=== PATIENT | male | born 1960 | race American Indian/Alaskan Native ===

== ENCOUNTER 2017-09-16 11:33 | Inpatient (IN) | payer MEDICARE, MEDICAID ==
[2017-09-16 12:22] LABS: BASO # 0.1 K/uL (0.0-0.2); BASO % 0.5 % (0.0-2.0); EOS % 0.4 % (0.0-4.0); HEMOGLOBIN 12.3 g/dL (12.0-18.0); LYMPH # 1.4 K/uL (1.0-4.3); LYMPH % 12.4 % (20.0-40.0); MEAN CORPUSCULAR HEMOGLOBIN 29.6 pg (27.0-31.0); MEAN CORPUSCULAR HGB CONC 33.3 g/dL (33.0-37.0); MEAN PLATELET VOLUME 8.3 fL (7.2-11.7); MONO # 1.5 K/uL (0.0-0.8); MONO % 12.9 % (0.0-10.0); NEUT # 8.3 K/uL (1.8-7.0); NEUT % 73.8 % (50.0-75.0); RBC 4.15 Mil/uL (4.40-5.90); RED CELL DISTRIBUTION WIDTH 13.8 % (11.5-14.5)
[2017-09-16 12:25] LABS: MEAN CELL VOLUME 88.9 fL (80.0-94.0); WHITE BLOOD COUNT 11.3 K/uL (4.8-10.8)
[2017-09-16 12:30] LABS: INR 1.4; PROTHROMBIN TIME 14.8 SECONDS (9.7-12.2)
--- NOTE | 2017-09-16 13:05 | CT ---
Date of service: 09/16/2017 PROCEDURE: CT HEAD WITHOUT CONTRAST. HISTORY: leg weakness, ams COMPARISON: None available. TECHNIQUE: Axial computed tomography images were obtained through the head/brain without intravenous contrast. Radiation dose: Total exam DLP = 1353.70 mGy-cm. This CT exam was performed using one or more of the following dose reduction techniques: Automated exposure control, adjustment of the mA and/or kV according to patient size, and/or use of iterative reconstruction technique. FINDINGS: Motion artifact exam. HEMORRHAGE: No intracranial hemorrhage. BRAIN: There is small lucency identified in the original artifact series at the inferior left external capsule and also in the subcortex of the bilateral frontal and left parietal lobes minimally. These likely reflect chronic microangiopathy but are nonspecific. A small infarct of indeterminate age is difficult to exclude at the inferior left external capsule. There is no cortical edema or mass effect identified throughout. Sulci and cisterns appear normal in overall volume with the posterior fossa contents unremarkable grossly. VENTRICLES: Unremarkable. No hydrocephalus. CALVARIUM: Unremarkable. PARANASAL SINUSES: Unremarkable as visualized. No significant inflammatory changes. MASTOID AIR CELLS: Unremarkable as visualized. No inflammatory changes. OTHER FINDINGS: None. IMPRESSION: No intracranial hemorrhage, mass effect or cortical edema is identified. 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 Lucency at the inferior left external capsule may reflect the same though small infarct of indeterminate age is difficult to exclude here. Follow-up CT or MRI is recommended.
--- NOTE | 2017-09-16 13:37 | C.PDOC ---
History Of Present Illness 56-year-old male sent to the ER from a skilled nursing for evaluation of left lower extremity weakness for 3 days. Patient has apparently been walking more slowly since Tuesday. He is complaining of left leg weakness. He also admits to mild headache. Otherwise he denies any visual changes, slurred speech, sensory changes, facial droop, chest pain, SOB, cough, or fever. Patient is a somewhat poor historian, not accompanied by any field case manager or family. Time Seen by Provider: 09/16/17 11:37 Chief Complaint (Nursing): Altered Mental Status History Per: Patient History/Exam Limitations: None Onset/Duration Of Symptoms: Days (x3) Current Symptoms Are (Timing): Still Present Past Medical History Reviewed: Historical Data, Nursing Documentation, Vital Signs Vital Signs: Last Vital Signs Temp 98.8 F 09/20/17 07:40 Pulse 86 09/20/17 13:35 Resp 20 09/20/17 07:40 BP 103/66 09/20/17 07:40 Pulse Ox 100 09/20/17 15:38 - Medical History PMH: Anxiety, Depression, Hepatitis, HTN, Schizophrenia - [facility] Procedures CLOSED ENDOSCOPIC BIOPSY OF LARGE INTESTINE (07/11/14) ESOPHAGOGASTRODUODENOSCOPY [EGD] W/CLOSED BIOPSY (11/01/12) LARYGNOSCOPY AND OTH TRACHEOSCOPY (11/01/12) VACCINATION NEC (11/01/12) Family History: States: No Known Family Hx - Social History Hx Tobacco Use: Yes Hx Alcohol Use: No Hx Substance Use: No Review Of Systems Except As Marked, All Systems Reviewed And Found Negative. Constitutional: Negative for: Fever Eyes: Negative for: Vision Change Cardiovascular: Negative for: Chest Pain Respiratory: Negative for: Cough, Shortness of Breath Musculoskeletal: Negative for: Leg Pain Neurological: Positive for: Weakness (left leg weakness), Headache. Negative for: Numbness, Incoordination, Change in Speech, Confusion, Dizziness, Other ( facial droop) Physical Exam - Physical Exam Appears: Non-toxic, No Acute Distress Skin: Normal Color, Warm, Dry Head: Atraumatic, Normacephalic Eye(s): bilateral: Normal Inspection (with no nystagmus), PERRL, EOMI Oral Mucosa: Moist Gastrointestinal/Abdominal: Soft, No Tenderness, No Distention Back: Normal Inspection, No Vertebral Tenderness Extremity: Bilateral: Atraumatic, No Pedal Edema, Normal Color And Temperature, Normal ROM (with no focal deficits elicited on exam) Pulses: Left Dorsalis Pedis: Normal, Right Dorsalis Pedis: Normal Neurological/Psych: Normal Speech, Normal Cranial Nerves, Cerebellar Signs ( negative), Normal Motor, Normal Sensation, Other (Alert, Awake, Oriented, with bizarre affect) Other Neurological Findings: No Facial Palsy Extremity: Right: No Drift, Left: No Drift, Upper: No Drift, Lower: No Drift ED Course And Treatment - Laboratory Results Result Diagrams: 09/20/17 06:51 09/20/17 06:51 ECG: Interpreted By Me, Viewed By Me ECG Rhythm: Sinus Rhythm ECG Interpretation: No Acute Changes Interpretation Of ECG: NSR at 88 bpm, normal axis, no acute ST/T wave changes Rate From EC O2 Sat by Pulse Oximetry: 100 (RA) Pulse Ox Interpretation: Normal - CT Scan/US CT Head w/o contrast Other Rad Studies (CT/US): Read By Radiologist, Radiology Report Reviewed CT/US Interpretation: Accession No. : [id number]. Patient Name / ID : NEGRO ULLOA / [id number]. Exam Date : 09/16/2017 12:45:02 ( Approved ). Study Comment : Sex / Age : M / 56Y. Creator : Malorie Herzog. Dictator : Jorge Medina MD. Clamper : Pipe Machine Operator : Jorge Medina MD. Approver2 : Report Date : 09/16/2017 12:51:27. My Comment : . Date of service: 09/16/2017. PROCEDURE: CT HEAD WITHOUT CONTRAST. HISTORY: leg weakness, ams. COMPARISON: None available. TECHNIQUE: Axial computed tomography images were obtained through the head/brain without intravenous contrast. Radiation dose: Total exam DLP = 1353.70 mGy-cm. This CT exam was performed using one or more of the following dose reduction techniques: Automated exposure control, adjustment of the mA and/or kV according to patient size, and/or use of iterative reconstruction technique. FINDINGS: Motion artifact exam. HEMORRHAGE: No intracranial hemorrhage. BRAIN: There is small lucency identified in the original artifact series at the inferior left external capsule and also in the subcortex of the bilateral frontal and left parietal lobes minimally. These likely reflect chronic microangiopathy but are nonspecific. A small infarct of indeterminate age is difficult to exclude at the inferior left external capsule. There is no cortical edema or mass effect identified throughout. Sulci and cisterns appear normal in overall volume with the posterior fossa contents unremarkable grossly. VENTRICLES: Unremarkable. No hydrocephalus. CALVARIUM: Unremarkable. PARANASAL SINUSES: Unremarkable as visualized. No significant inflammatory changes. MASTOID AIR CELLS: Unremarkable as visualized. No inflammatory changes. OTHER FINDINGS: None. IMPRESSION: No intracranial hemorrhage, mass effect or cortical edema is identified. 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 Lucency at the inferior left external capsule may reflect the same though small infarct of indeterminate age is difficult to exclude here. Follow-up CT or MRI is recommended. Progress Note: Blood work, UA, UDS, EKG, CT head ordered and reviewed. ASA PO given after CT head neg for acute bleed. 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 NIHSS Stroke Scale - Date/Time Evaluation Performed Date Performed: 09/16/17 Time Performed: 11:40 When Was NIHSS Performed: Baseline - How Severe is the Stoke Level of Consciousness: 0=Alert LOC to Questions: 0=Both comments correct LOC to commands: 0=Obeys both correctly Best Gaze: 0=Normal Visual: 0=No visual loss Facial: 0=Normal Motor Arm - Left: 0=No drift Motor Arm - Right: 0=No drift Motor Leg - Left: 0=No drift Motor Leg - Right: 0=No drift Limb Ataxia: 0=Absent Sensory: 0=Normal Best Language: 0=No aphasia Dysarthia: 0=Normal articulation Extinction & Inattention (Neglect): 0=Normal, no object Score: 0 Severity Of Stroke: 0= No Stroke rTPA Inclusion/Exclusion - Refusal of Treatment Patient Refused Treatment: No - Inclusion Criteria for Altepase Patient is 18 years or Older: Yes Clinical DX Ischemic Stroke Cause Neurological Deficit: No Time of Onset Established Less Than 270 Mins Before TX Begin: No Risk/Benefit Discussed With Patient/Family Member Present: No Disposition - Disposition Disposition: HOSPITALIZED Disposition Time: 14:19 Condition: STABLE - Clinical Impression Clinical Impression: Ambulatory dysfunction, Left leg weakness, TIA (transient ischemic attack) - Scribe Statement The provider has reviewed the documentation as recorded by the Scribe (Lilly Whitley) Provider Attestation: All medical record entries made by the Scribe were at my direction and personally dictated by me. I have reviewed the chart and agree that the record accurately reflects my personal performance of the history, physical exam, medical decision making, and the department course for this patient. I have also personally directed, reviewed, and agree with the discharge instructions and disposition.
[2017-09-16 13:41] LABS: URINE BILIRUBIN NEGATIVE (NEGATIVE); URINE BLOOD 1+ (NEGATIVE); URINE CLARITY Clear (Clear); URINE COLOR Yellow (YELLOW); URINE GLUCOSE (UA) NORMAL (Normal); URINE LEUKOCYTE ESTERASE NEG Leu/uL (Negative); URINE PROTEIN NEGATIVE (NEGATIVE)
[2017-09-16 14:08] LABS: BARBITURATES, UR NEGATIVE (NEGATIVE); BENZODIAZEPINES, UR NEGATIVE (NEGATIVE); OPIATES, UR NEGATIVE (NEGATIVE); PHENCYCLIDINE, UR NEGATIVE (NEGATIVE)
[2017-09-16 14:31] LABS: ALB/GLOB RATIO 1.3 (1.0-2.1); ALBUMIN 3.8 g/dL (3.5-5.0); ALT/SGPT 23 U/L (21-72); AST/SGOT 14 U/L (17-59); BLOOD UREA NITROGEN 10 mg/dL (9-20); CALCIUM 8.6 mg/dl (8.6-10.4); GFR AFRICAN-AMERICAN > 60; GFR NON-AFRICAN AMERICAN > 60
[2017-09-16 14:51] LABS: CK-MB < 0.22 ng/mL (0.0-3.38)
--- NOTE | 2017-09-16 20:58 | CP.PCM.HP ---
Past Patient History - Past Medical History & Family History Past Medical History?: Yes - Past Social History Smoking Status: Light Smoker < 10 Cigarettes Daily - CARDIAC Hx Hypertension: Yes - PULMONARY Hx Respiratory Disorders: No - NEUROLOGICAL Hx Neurological Disorder: No - HEENT Hx HEENT Problems: No - RENAL Hx Chronic Kidney Disease: No - ENDOCRINE/METABOLIC Hx Endocrine Disorders: No - HEMATOLOGICAL/ONCOLOGICAL Hx Blood Disorders: No - INTEGUMENTARY Hx Dermatological Problems: No - MUSCULOSKELETAL/RHEUMATOLOGICAL Hx Musculoskeletal Disorders: No - GASTROINTESTINAL Hx Gastrointestinal Disorders: No - GENITOURINARY/GYNECOLOGICAL Hx Genitourinary Disorders: No - PSYCHIATRIC Hx Anxiety: Yes Hx Depression: Yes Hx Schizophrenia: Yes Hx Substance Use: No - SURGICAL HISTORY Hx Surgeries: Yes - ANESTHESIA Hx Anesthesia: Yes Hx Anesthesia Reactions: No Hx Malignant Hyperthermia: No Meds Allergies/Adverse Reactions: Allergies Allergy/AdvReac Type Severity Reaction Status Date / Time No Known Allergies Allergy Verified 11/02/12 01:25 Physical Exam - Constitutional Appears: Well - Head Exam Head Exam: ATRAUMATIC, NORMAL INSPECTION, NORMOCEPHALIC - Eye Exam Eye Exam: EOMI, Normal appearance, PERRL Pupil Exam: NORMAL ACCOMODATION, PERRL - ENT Exam ENT Exam: Mucous Membranes Moist, Normal Exam - Neck Exam Neck exam: Positive for: Normal Inspection - Respiratory Exam Respiratory Exam: Decreased Breath Sounds - Cardiovascular Exam Cardiovascular Exam: REGULAR RHYTHM, +S1, +S2 - GI/Abdominal Exam GI & Abdominal Exam: Diminished Bowel Sounds, Soft - Rectal Exam Rectal Exam: Deferred Results - Vital Signs Recent Vital Signs: Last Vital Signs Temp 98.6 F 09/16/17 17:30 Pulse 90 09/16/17 20:31 Resp 20 09/16/17 17:30 BP 115/72 09/16/17 17:30 Pulse Ox 100 09/16/17 17:30 - Labs Result Diagrams: 09/16/17 12:18 09/16/17 14:15 Labs: Laboratory Results - last 24 hr 09/16/17 09/16/17 09/16/17 11:53 12:18 12:18 WBC 11.3 H D RBC 4.15 L Hgb 12.3 Hct 36.9 MCV 88.9 D MCH 29.6 MCHC 33.3 RDW 13.8 Plt Count 228 MPV 8.3 Neut % (Auto) 73.8 Lymph % (Auto) 12.4 L [place] % (Auto) 12.9 H Eos % (Auto) 0.4 Baso % (Auto) 0.5 Neut # (Auto) 8.3 H Lymph # (Auto) 1.4 [place] # (Auto) 1.5 H Eos # (Auto) 0.0 Baso # (Auto) 0.1 PT 14.8 H INR 1.4 APTT 37 H Sodium Potassium Chloride Carbon Dioxide Anion Gap BUN Creatinine Est GFR ( Amer) Est GFR (Non-Af Amer) POC Glucose (mg/dL) 111 H Random Glucose Calcium Total Bilirubin AST ALT Alkaline Phosphatase CK-MB (Mass) Troponin I Total Protein Albumin Globulin Albumin/Globulin Ratio Urine Color Urine Clarity Urine pH Ur Specific [place] Urine Protein Urine Glucose (UA) Urine Ketones Urine Blood Urine Nitrate Urine Bilirubin Urine Urobilinogen Ur Leukocyte Esterase Urine WBC (Auto) Urine RBC (Auto) Urine Opiates Screen Urine Methadone Screen Ur Barbiturates Screen Ur Phencyclidine Scrn Ur Amphetamines Screen U Benzodiazepines Scrn U Oth Cocaine Metabols U Cannabinoids Screen 09/16/17 09/16/17 09/16/17 13:26 13:26 14:15 WBC RBC Hgb Hct MCV MCH MCHC RDW Plt Count MPV Neut % (Auto) Lymph % (Auto) [place] % (Auto) Eos % (Auto) Baso % (Auto) Neut # (Auto) Lymph # (Auto) [place] # (Auto) Eos # (Auto) Baso # (Auto) PT INR APTT Sodium 139 Potassium 4.3 Chloride 102 Carbon Dioxide 25 Anion Gap 16 BUN 10 Creatinine 0.8 Est GFR ( Amer) > 60 Est GFR (Non-Af Amer) > 60 POC Glucose (mg/dL) Random Glucose 100 Calcium 8.6 Total Bilirubin 0.7 AST 14 L ALT 23 Alkaline Phosphatase 97 CK-MB (Mass) < 0.22 Troponin I < 0.0120 Total Protein 6.7 Albumin 3.8 Globulin 2.9 Albumin/Globulin Ratio 1.3 Urine Color Yellow Urine Clarity Clear Urine pH 5.0 Ur Specific [place] 1.016 Urine Protein Negative Urine Glucose (UA) Normal Urine Ketones Negative Urine Blood 1+ H Urine Nitrate Negative Urine Bilirubin Negative Urine Urobilinogen 2.0 Ur Leukocyte Esterase Neg Urine WBC (Auto) < 1 Urine RBC (Auto) 11 H Urine Opiates Screen Negative Urine Methadone Screen Negative Ur Barbiturates Screen Negative Ur Phencyclidine Scrn Negative Ur Amphetamines Screen Negative U Benzodiazepines Scrn Negative U Oth Cocaine Metabols Negative U Cannabinoids Screen Negative
[2017-09-16] MEDS ORDERED: CLOZAPINE 100 MG PO SCH (22:00)
[2017-09-17] MEDS: Multiple Vitamins Tab PO SCH (10:11)
[2017-09-17] MEDS: Enoxaparin 40 mg Syringe SC SCH (10:11)
[2017-09-17] MEDS: Pantoprazole 40 mg EC Tab PO SCH (10:12)
--- NOTE | 2017-09-17 10:36 | CT ---
Date of service: 09/17/2017 PROCEDURE: CT Lumbar Spine without contrast HISTORY: weakness COMPARISON: None. TECHNIQUE: Axial computed tomography images were obtained of the lumbar spine without the use of intravenous contrast. Coronal and sagittal reformatted images were created and reviewed. Radiation dose: Total exam DLP = 379.33 mGy-cm. This CT exam was performed using one or more of the following dose reduction techniques: Automated exposure control, adjustment of the mA and/or kV according to patient size, and/or use of iterative reconstruction technique. FINDINGS: VERTEBRAE: Unremarkable. No fracture. Normal alignmentStraightened lumbar curvature without fracture or spondylolisthesis identified. Normal vertebral body and disc interspace heights identified. No destructive bony lesion appreciated. Prevertebral paraspinal soft tissues appear diffusely unremarkable. Instill note is made of prominent fecal loading throughout large-bowel as imaged. This excludes the rectal vault. DISCS/SPINAL CANAL/NEURAL FORAMINA: L1-2: Unremarkable. L2-3: Unremarkable. L3-4: Minimal disc bulging is encounter without central canal or neural foraminal stenosis. . L4-5: A mild generalized disc bulge is appreciated with limited facet joint degenerative changes encroaching the lateral recesses combined with this disc bulge but without causing generalized central canal stenosis. L5-S1: Unremarkable. PARASPINAL SOFT TISSUES: Unremarkable. OTHER FINDINGS: None. IMPRESSION: Limited disc bulging is seen at L3-4 and L4-5 without generalized central canal stenosis at either level although the lateral recesses are encroached L4-5 due to combined facet joint degenerative changes with disc bulging. No gross disc herniation. Straightened lumbar curvature. MRI is available for follow-up if clinically warranted. Incidental potential constipation.
--- NOTE | 2017-09-17 14:58 | CP.PCM.CON ---
History of Present Illness - History of Present Illness History of Present Illness: 56 yo male with h/o learning disability, a resident in a skilled nursing, HTN, presents for right sided abdominal pain. Patient is a poor historian. States has had a right sided abdominal pain at rest, described as achy, non-radiating and not associated with nausea, vomiting or diarrhea. Denies chest pain, dyspnea , palpitations or diaphoresis at rest or exertion. Review of Systems - Review of Systems Review of Systems: all others are negative except HPI Past Patient History - Past Medical History & Family History Past Medical History?: Yes - Past Social History Smoking Status: Light Smoker < 10 Cigarettes Daily - CARDIAC Hx Hypertension: Yes - PULMONARY Hx Respiratory Disorders: No - NEUROLOGICAL Hx Neurological Disorder: No - HEENT Hx HEENT Problems: No - RENAL Hx Chronic Kidney Disease: No - ENDOCRINE/METABOLIC Hx Endocrine Disorders: No - HEMATOLOGICAL/ONCOLOGICAL Hx Blood Disorders: No - INTEGUMENTARY Hx Dermatological Problems: No - MUSCULOSKELETAL/RHEUMATOLOGICAL Hx Musculoskeletal Disorders: No - GASTROINTESTINAL Hx Gastrointestinal Disorders: No - GENITOURINARY/GYNECOLOGICAL Hx Genitourinary Disorders: No - PSYCHIATRIC Hx Anxiety: Yes Hx Depression: Yes Hx Schizophrenia: Yes Hx Substance Use: No - SURGICAL HISTORY Hx Surgeries: Yes - ANESTHESIA Hx Anesthesia: Yes Hx Anesthesia Reactions: No Hx Malignant Hyperthermia: No Meds Allergies/Adverse Reactions: Allergies Allergy/AdvReac Type Severity Reaction Status Date / Time No Known Allergies Allergy Verified 11/02/12 01:25 - Medications Medications: Current Medications Amlodipine Besylate (Norvasc) 5 mg PO DAILY [facility] Last Admin: 09/17/17 10:12 Dose: 5 mg Aspirin (Aspirin) 325 mg PO DAILY [facility] Last Admin: 09/17/17 10:12 Dose: 325 mg Bisacodyl (Dulcolax) 5 mg PO BID PRN PRN Reason: Constipation Enoxaparin Sodium (Lovenox) 40 mg SC DAILY [facility] Last Admin: 09/17/17 10:11 Dose: 40 mg Folic Acid (Folic Acid) 1 mg PO DAILY [facility] Last Admin: 09/17/17 10:12 Dose: 1 mg Home Med (Clozapine [Clozapine Odt]) 100 mg PO BID [facility] Home Med (Linaclotide [Linzess]) 145 mcg PO DAILY [facility] Multivitamins (Hexavitamin) 1 tab PO DAILY [facility] Last Admin: 09/17/17 10:11 Dose: 1 tab Pantoprazole Sodium (Protonix Ec Tab) 40 mg PO DAILY [facility] Last Admin: 09/17/17 10:12 Dose: 40 mg Propranolol HCl (Inderal) 10 mg PO BID [facility] Last Admin: 09/17/17 10:12 Dose: 10 mg Rosuvastatin Calcium (Crestor) 10 mg PO HS [facility] Last Admin: 09/16/17 21:40 Dose: 10 mg Physical Exam - Constitutional Appears: No Acute Distress - Head Exam Head Exam: ATRAUMATIC, NORMOCEPHALIC - Eye Exam Eye Exam: EOMI Pupil Exam: PERRL - Neck Exam Neck exam: Positive for: Full Rom. Negative for: Lymphadenopathy - Respiratory Exam Respiratory Exam: Clear to Auscultation Bilateral, NORMAL BREATHING PATTERN - Cardiovascular Exam Cardiovascular Exam: REGULAR RHYTHM, RRR, +S1, +S2. absent: JVD, Systolic Murmur - GI/Abdominal Exam GI & Abdominal Exam: Soft, Tenderness - Extremities Exam Extremities exam: Negative for: calf tenderness - Back Exam Back exam: absent: CVA tenderness (L) - Neurological Exam Neurological exam: Alert, CN II-XII Intact - Psychiatric Exam Psychiatric exam: Normal Mood Results - Vital Signs Recent Vital Signs: Last Vital Signs Temp 98.7 F 09/17/17 08:00 Pulse 79 09/17/17 08:00 Resp 20 09/17/17 07:00 BP 123/79 09/17/17 07:00 Pulse Ox 100 09/17/17 07:00 - Labs Result Diagrams: 09/16/17 12:18 09/16/17 14:15 Assessment & Plan (1) Other chest pain Assessment and Plan: Atypical chest pain EKG, as reviewed by me, shows normal SR, no acute ST-T changes Possible GI etiology Suggest GI eval and abdominal imaging Status: Acute (2) Essential (primary) hypertension Assessment and Plan: Well controlled on current regimen Status: Acute
--- NOTE | 2017-09-17 15:36 | CP.PCM.PN ---
Subjective - Date & Time of Evaluation Date of Evaluation: 09/17/17 Time of Evaluation: 10:30 - Subjective Subjective: clinically same Objective - Vital Signs/Intake and Output Vital Signs (last 24 hours): Temp Pulse Resp BP Pulse Ox 98.7 F 79 20 123/79 100 09/17/17 08:00 09/17/17 08:00 09/17/17 07:00 09/17/17 07:00 09/17/17 07:00 - Medications Medications: Current Medications Amlodipine Besylate (Norvasc) 5 mg PO DAILY [facility] Last Admin: 09/17/17 10:12 Dose: 5 mg Aspirin (Aspirin) 325 mg PO DAILY [facility] Last Admin: 09/17/17 10:12 Dose: 325 mg Bisacodyl (Dulcolax) 5 mg PO BID PRN PRN Reason: Constipation Enoxaparin Sodium (Lovenox) 40 mg SC DAILY [facility] Last Admin: 09/17/17 10:11 Dose: 40 mg Folic Acid (Folic Acid) 1 mg PO DAILY [facility] Last Admin: 09/17/17 10:12 Dose: 1 mg Home Med (Clozapine [Clozapine Odt]) 100 mg PO BID [facility] Home Med (Linaclotide [Linzess]) 145 mcg PO DAILY [facility] Multivitamins (Hexavitamin) 1 tab PO DAILY [facility] Last Admin: 09/17/17 10:11 Dose: 1 tab Pantoprazole Sodium (Protonix Ec Tab) 40 mg PO DAILY [facility] Last Admin: 09/17/17 10:12 Dose: 40 mg Propranolol HCl (Inderal) 10 mg PO BID [facility] Last Admin: 09/17/17 10:12 Dose: 10 mg Rosuvastatin Calcium (Crestor) 10 mg PO [facility] Last Admin: 09/16/17 21:40 Dose: 10 mg - Labs Labs: 09/16/17 12:18 09/16/17 14:15 PT 14.8 SECONDS (9.7-12.2) H 09/16/17 12:18 INR 1.4 09/16/17 12:18 APTT 37 SECONDS (21-34) H 09/16/17 12:18 - Constitutional Appears: Well - Head Exam Head Exam: ATRAUMATIC, NORMAL INSPECTION, NORMOCEPHALIC - Eye Exam Eye Exam: EOMI, Normal appearance, PERRL Pupil Exam: NORMAL ACCOMODATION, PERRL - ENT Exam ENT Exam: Mucous Membranes Moist, Normal Exam - Neck Exam Neck Exam: Full ROM, Normal Inspection. absent: Lymphadenopathy - Respiratory Exam Respiratory Exam: Decreased Breath Sounds - Cardiovascular Exam Cardiovascular Exam: REGULAR RHYTHM, +S1, +S2 - GI/Abdominal Exam GI & Abdominal Exam: Soft, Diminished Bowel Sounds - Rectal Exam Rectal Exam: Deferred
--- NOTE | 2017-09-17 17:42 | RAD ---
Date of service: 09/17/2017 PROCEDURE: CHEST RADIOGRAPH, 1 VIEW HISTORY: COMPARISON: Chest radiograph 12/16/2010. FINDINGS: LUNGS: No active pulmonary disease appreciated bilaterally. Small granulomas suggested at the medial left apex. PLEURA: No pneumothorax or pleural fluid seen. CARDIOVASCULAR: Normal. OSSEOUS STRUCTURES: No significant abnormalities. VISUALIZED UPPER ABDOMEN: Normal. OTHER FINDINGS: None. IMPRESSION: No acute interval cardiopulmonary disease appreciated.
[2017-09-18 08:59] LABS: BASO # 0.1 K/uL (0.0-0.2); BASO % 0.8 % (0.0-2.0); EOS # 0.1 K/uL (0.0-0.7); EOS % 1.1 % (0.0-4.0); HEMOGLOBIN 12.1 g/dL (12.0-18.0); LYMPH # 1.5 K/uL (1.0-4.3); LYMPH % 15.6 % (20.0-40.0); MEAN CELL VOLUME 88.5 fL (80.0-94.0); MEAN CORPUSCULAR HEMOGLOBIN 29.6 pg (27.0-31.0); MEAN CORPUSCULAR HGB CONC 33.5 g/dL (33.0-37.0); MEAN PLATELET VOLUME 8.7 fL (7.2-11.7); MONO % 10.4 % (0.0-10.0); NEUT # 6.9 K/uL (1.8-7.0); NEUT % 72.1 % (50.0-75.0); NRBC % 0.1 % (0.0-2.0); RBC 4.07 Mil/uL (4.40-5.90); RED CELL DISTRIBUTION WIDTH 14.2 % (11.5-14.5); WHITE BLOOD COUNT 9.6 K/uL (4.8-10.8)
[2017-09-18 09:25] LABS: ALB/GLOB RATIO 1.2 (1.0-2.1); ALBUMIN 3.5 g/dL (3.5-5.0); ALT/SGPT 24 U/L (21-72); AST/SGOT 12 U/L (17-59); BLOOD UREA NITROGEN 14 mg/dL (9-20); CALCIUM 8.5 mg/dl (8.6-10.4); GFR AFRICAN-AMERICAN > 60; GFR NON-AFRICAN AMERICAN > 60
[2017-09-18] MEDS: Pantoprazole 40 mg EC Tab PO SCH (10:34)
[2017-09-18] MEDS: Multiple Vitamins Tab PO SCH (10:34)
[2017-09-18] MEDS: Enoxaparin 40 mg Syringe SC SCH (10:35)
[2017-09-18 12:56] LABS: HDL CHOLESTEROL 37 mg/dL (30-70)
[2017-09-18 13:07] LABS: LDL CHOLESTEROL 60 mg/dL (0-129)
--- NOTE | 2017-09-18 17:38 | CP.PCM.PN ---
Subjective - Date & Time of Evaluation Date of Evaluation: 09/18/17 Time of Evaluation: 09:45 - Subjective Subjective: clinically same Objective - Vital Signs/Intake and Output Vital Signs (last 24 hours): Temp Pulse Resp BP Pulse Ox 100 F H 87 20 108/73 100 09/18/17 16:03 09/18/17 16:03 09/18/17 16:03 09/18/17 16:03 09/18/17 16:03 Intake and Output: 09/18/17 09/18/17 06:59 18:59 Intake Total 960 Output Total 500 500 Balance 460 -500 - Medications Medications: Current Medications Amlodipine Besylate (Norvasc) 5 mg PO DAILY [facility] Last Admin: 09/18/17 10:34 Dose: 5 mg Aspirin (Aspirin) 325 mg PO DAILY [facility] Last Admin: 09/18/17 10:34 Dose: 325 mg Bisacodyl (Dulcolax) 5 mg PO BID PRN PRN Reason: Constipation Enoxaparin Sodium (Lovenox) 40 mg SC DAILY [facility] Last Admin: 09/18/17 10:35 Dose: 40 mg Folic Acid (Folic Acid) 1 mg PO DAILY [facility] Last Admin: 09/18/17 10:34 Dose: 1 mg Home Med (Clozapine [Clozapine Odt]) 100 mg PO BID [facility] Home Med (Linaclotide [Linzess]) 145 mcg PO DAILY [facility] Multivitamins (Hexavitamin) 1 tab PO DAILY [facility] Last Admin: 09/18/17 10:34 Dose: 1 tab Pantoprazole Sodium (Protonix Ec Tab) 40 mg PO DAILY [facility] Last Admin: 09/18/17 10:34 Dose: 40 mg Propranolol HCl (Inderal) 10 mg PO BID [facility] Last Admin: 09/18/17 10:35 Dose: 10 mg Rosuvastatin Calcium (Crestor) 10 mg PO HS [facility] Last Admin: 09/17/17 21:12 Dose: 10 mg - Labs Labs: 09/18/17 08:42 09/18/17 08:42 PT 14.8 SECONDS (9.7-12.2) H 09/16/17 12:18 INR 1.4 09/16/17 12:18 APTT 37 SECONDS (21-34) H 09/16/17 12:18 - Constitutional Appears: Well - Head Exam Head Exam: ATRAUMATIC, NORMAL INSPECTION, NORMOCEPHALIC - Eye Exam Eye Exam: EOMI, Normal appearance, PERRL Pupil Exam: NORMAL ACCOMODATION, PERRL - ENT Exam ENT Exam: Mucous Membranes Moist, Normal Exam - Neck Exam Neck Exam: Full ROM, Normal Inspection. absent: Lymphadenopathy - Respiratory Exam Respiratory Exam: Decreased Breath Sounds - Cardiovascular Exam Cardiovascular Exam: REGULAR RHYTHM, +S1, +S2 - GI/Abdominal Exam GI & Abdominal Exam: Soft, Diminished Bowel Sounds - Rectal Exam Rectal Exam: Deferred
[2017-09-18] MEDS: Bisacodyl 5mg EC Tab PO PRN (21:31)
[2017-09-19 06:59] LABS: BASO # 0.1 K/uL (0.0-0.2); BASO % 0.7 % (0.0-2.0); EOS # 0.2 K/uL (0.0-0.7); HEMOGLOBIN 12.5 g/dL (12.0-18.0); LYMPH # 1.3 K/uL (1.0-4.3); LYMPH % 13.2 % (20.0-40.0); MEAN CELL VOLUME 88.5 fL (80.0-94.0); MEAN CORPUSCULAR HEMOGLOBIN 29.9 pg (27.0-31.0); MEAN CORPUSCULAR HGB CONC 33.8 g/dL (33.0-37.0); MEAN PLATELET VOLUME 8.4 fL (7.2-11.7); MONO % 10.4 % (0.0-10.0); NEUT # 7.2 K/uL (1.8-7.0); NEUT % 73.7 % (50.0-75.0); NRBC % 0.1 % (0.0-2.0); RBC 4.18 Mil/uL (4.40-5.90); RED CELL DISTRIBUTION WIDTH 14.1 % (11.5-14.5); WHITE BLOOD COUNT 9.8 K/uL (4.8-10.8)
[2017-09-19 07:20] LABS: HDL CHOLESTEROL 35 mg/dL (30-70)
[2017-09-19 07:31] LABS: LDL CHOLESTEROL 56 mg/dL (0-129)
[2017-09-19 07:58] LABS: ALB/GLOB RATIO 1.2 (1.0-2.1); ALBUMIN 3.6 g/dL (3.5-5.0); ALT/SGPT 30 U/L (21-72); AST/SGOT 18 U/L (17-59); BLOOD UREA NITROGEN 18 mg/dL (9-20); CALCIUM 8.6 mg/dl (8.6-10.4); GFR AFRICAN-AMERICAN > 60; GFR NON-AFRICAN AMERICAN > 60
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
[2017-09-19] MEDS: Enoxaparin 40 mg Syringe SC SCH (10:10)
[2017-09-19] MEDS: Multiple Vitamins Tab PO SCH (10:11)
[2017-09-19] MEDS: Pantoprazole 40 mg EC Tab PO SCH (10:11)
--- NOTE | 2017-09-19 13:33 | MRI ---
Date of service: 09/19/2017 PROCEDURE: MRI BRAIN WITHOUT CONTRAST HISTORY: recurrent right sub cortical dysfunction COMPARISON: Noncontrast head CT from 09/16/2017 TECHNIQUE: Multiplanar, multisequence MR images of the brain were obtained without intravenous contrast enhancement. FINDINGS: HEMORRHAGE: None DWI: No evidence of an acute or early subacute infarction. BRAIN PARENCHYMA: There are minimal chronic microangiopathic changes. There is no mass, mass effect or abnormal extra-axial fluid collection. There is no territorial infarction. The midline sagittal structures are normal. VENTRICLES: There is mild age-related global parenchymal volume loss and proportionate enlargement of the ventricles and cortical sulci. CRANIUM: There is normal bone marrow signal pattern. ORBITS: Grossly unremarkable. PARANASAL SINUSES/MASTOIDS: There is a retention cyst/ polyp in the anterior superior right maxillary sinus and mild mucosal thickening in the ethmoid air cells. The remaining included paranasal sinuses are predominantly clear. The mastoid air cells are predominantly clear. VASCULAR SYSTEM: There are normal signal voids in the larger intracranial arteries. OTHER FINDINGS: None. IMPRESSION: 1. No acute intracranial abnormality. 2. Minimal chronic microangiopathic changes and mild age-related global parenchymal volume loss.
--- NOTE | 2017-09-19 13:57 | PN ---
DATE: 09/19/2017 NEUROLOGICAL PROBLEM: Right subcortical dysfunction manifesting with left-sided weakness. PHYSICAL EXAMINATION: VITAL SIGNS: Blood pressure 119/77, mean arterial pressure of 81, respiratory rate 18, temperature 98.8 with the pulse rate 84 and regular. GENERAL: The patient is arousable on calling his first name. He knows he is in the hospital. He denies any new complaints except some fever overnight. He claims that episodic left-sided weakness including arm and leg does not affect his speech and vision. No history of fall. No history of trauma. SIGNIFICANT PAST MEDICAL HISTORY: Depression, hepatitis, hypertension, schizophrenia, and chronic renal disease. NEUROLOGIC: Reflexes are decreased. Plantars are mute. Extraocular movement is same. No facial asymmetry noted. The patient was evaluated by Dr. Ash yesterday. The patient was recommended to have a workup for transient ischemic attack. ASSESSMENT AND PLAN: 1. I recommended him to have MRI of the brain to rule out any vascular versus structural cause that could explain his problem. 2. Electroencephalogram also to be done to rule out any seizure activities. In the meantime, the patient should be continuously taking the current medication for stroke prophylaxis with proper hydration. The patient will be followed closely with you. Flip Hameed MD
--- NOTE | 2017-09-19 16:29 | RAD ---
PROCEDURE: Radiographs of the pelvis and bilateral hips HISTORY: unable to walk COMPARISON: None. FINDINGS: BONES: Pelvis: Unremarkable. Right hip:Probable anterior acetabular over coverage. Bony protrusion along the anterosuperior aspect of the femoral head neck junction. Left hip:Probable anterior acetabular over coverage. Bony protrusion along the anterosuperior aspect of the femoral head neck junction. JOINTS: Right hip: Joint space narrowing. Left hip: Joint space narrowing. Sacroiliac Joints: Joint space narrowing. Pubic symphysis: Joint space narrowing. SOFT TISSUES: Normal. OTHER FINDINGS: None. IMPRESSION: No demonstrated fracture or dislocation. 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
--- NOTE | 2017-09-19 19:06 | CP.PCM.PN ---
Subjective - Date & Time of Evaluation Date of Evaluation: 09/19/17 Time of Evaluation: 09:45 - Subjective Subjective: clinically same Objective - Vital Signs/Intake and Output Vital Signs (last 24 hours): Temp Pulse Resp BP Pulse Ox 98.2 F 87 20 94/57 L 96 09/19/17 07:30 09/19/17 12:45 09/19/17 07:30 09/19/17 07:30 09/19/17 12:45 Intake and Output: 09/19/17 09/20/17 18:59 06:59 Intake Total 600 Balance 600 - Medications Medications: Current Medications Acetaminophen (Tylenol 325mg Tab) 650 mg PO Q8 PRN PRN Reason: Fever >100.4 F Last Admin: 09/18/17 21:31 Dose: 650 mg Amlodipine Besylate (Norvasc) [address] [facility] Last Admin: 09/19/17 10:11 Dose: 5 mg Aspirin (Aspirin) [address] [facility] Last Admin: 09/19/17 10:10 Dose: 325 mg Bisacodyl (Dulcolax) 5 mg PO BID PRN PRN Reason: Constipation Last Admin: 09/18/17 21:31 Dose: 5 mg Enoxaparin Sodium (Lovenox) [address] [facility] Last Admin: 09/19/17 10:10 Dose: 40 mg Folic Acid (Folic Acid) [address] [facility] Last Admin: 09/19/17 10:11 Dose: 1 mg Home Med (Clozapine [Clozapine Odt]) [address] [facility] Home Med (Linaclotide [Linzess]) [address] [facility] Ceftriaxone Sodium 1 gm/ (Sodium Chloride) 100 mls @ 100 mls/hr IVPB DAILY [facility] PRN Reason: Protocol Last Admin: 09/19/17 10:11 Dose: 100 mls/hr Multivitamins (Hexavitamin) [address] [facility] Last Admin: 09/19/17 10:11 Dose: 1 tab Pantoprazole Sodium (Protonix Ec Tab) [address] [facility] Last Admin: 09/19/17 10:11 Dose: 40 mg Propranolol HCl (Inderal) [address] [facility] Last Admin: 09/19/17 10:11 Dose: 10 mg Rosuvastatin Calcium (Crestor) [address] [facility] Last Admin: 09/18/17 21:31 Dose: 10 mg - Labs Labs: 09/19/17 06:39 09/19/17 06:39 PT 14.8 SECONDS (9.7-12.2) H 09/16/17 12:18 INR 1.4 09/16/17 12:18 APTT 37 SECONDS (21-34) H 09/16/17 12:18 - Constitutional Appears: Well - Head Exam Head Exam: ATRAUMATIC, NORMAL INSPECTION, NORMOCEPHALIC - Eye Exam Eye Exam: EOMI, Normal appearance, PERRL Pupil Exam: NORMAL ACCOMODATION, PERRL - ENT Exam ENT Exam: Mucous Membranes Moist, Normal Exam - Neck Exam Neck Exam: Full ROM, Normal Inspection. absent: Lymphadenopathy - Respiratory Exam Respiratory Exam: Decreased Breath Sounds - Cardiovascular Exam Cardiovascular Exam: REGULAR RHYTHM, +S1, +S2 - GI/Abdominal Exam GI & Abdominal Exam: Soft, Diminished Bowel Sounds - Rectal Exam Rectal Exam: Deferred
--- NOTE | 2017-09-19 19:23 | CP.PCM.PN ---
Subjective - Date & Time of Evaluation Date of Evaluation: 09/19/17 Time of Evaluation: 10:22 - Subjective Subjective: PGY2 Medicine Note for Dr. Maci Holley Patient seen and examined this morning at bedside. No acute events overnight. Patient states he is feeling well but still experiencing left leg weakness. He is tolerating his diet and his pain has been well controlled. Patient no complaints at this time. ROS is negative. Objective - Vital Signs/Intake and Output Vital Signs (last 24 hours): Temp Pulse Resp BP Pulse Ox 98.2 F 87 20 94/57 L 96 09/19/17 07:30 09/19/17 12:45 09/19/17 07:30 09/19/17 07:30 09/19/17 12:45 Intake and Output: 09/19/17 09/20/17 18:59 06:59 Intake Total 600 Balance 600 - Medications Medications: Current Medications Acetaminophen (Tylenol 325mg Tab) 650 mg PO Q8 PRN PRN Reason: Fever >100.4 F Last Admin: 09/18/17 21:31 Dose: 650 mg Amlodipine Besylate (Norvasc) 5 mg PO DAILY [facility] Last Admin: 09/19/17 10:11 Dose: 5 mg Aspirin (Aspirin) 325 mg PO DAILY [facility] Last Admin: 09/19/17 10:10 Dose: 325 mg Bisacodyl (Dulcolax) 5 mg PO BID PRN PRN Reason: Constipation Last Admin: 09/18/17 21:31 Dose: 5 mg Enoxaparin Sodium (Lovenox) 40 mg SC DAILY [facility] Last Admin: 09/19/17 10:10 Dose: 40 mg Folic Acid (Folic Acid) 1 mg PO DAILY [facility] Last Admin: 09/19/17 10:11 Dose: 1 mg Home Med (Clozapine [Clozapine Odt]) 100 mg PO BID [facility] Home Med (Linaclotide [Linzess]) 145 mcg PO DAILY [facility] Ceftriaxone Sodium 1 gm/ (Sodium Chloride) 100 mls @ 100 mls/hr IVPB DAILY [facility] PRN Reason: Protocol Last Admin: 09/19/17 10:11 Dose: 100 mls/hr Multivitamins (Hexavitamin) 1 tab PO DAILY [facility] Last Admin: 09/19/17 10:11 Dose: 1 tab Pantoprazole Sodium (Protonix Ec Tab) 40 mg PO DAILY [facility] Last Admin: 09/19/17 10:11 Dose: 40 mg Propranolol HCl (Inderal) 10 mg PO BID [facility] Last Admin: 09/19/17 10:11 Dose: 10 mg Rosuvastatin Calcium (Crestor) 10 mg PO HS [facility] Last Admin: 09/18/17 21:31 Dose: 10 mg - Labs Labs: 09/19/17 06:39 09/19/17 06:39 PT 14.8 SECONDS (9.7-12.2) H 09/16/17 12:18 INR 1.4 09/16/17 12:18 APTT 37 SECONDS (21-34) H 09/16/17 12:18 - Constitutional Appears: Unkempt, Older Than Stated Age - Head Exam Head Exam: NORMOCEPHALIC - Eye Exam Eye Exam: Normal appearance - ENT Exam Additional comments: poor dentition, missing many teeth - Neck Exam Neck Exam: absent: Lymphadenopathy - Respiratory Exam Respiratory Exam: Clear to Ausculation Bilateral, NORMAL BREATHING PATTERN. absent: Accessory Muscle Use, Rales, Rhonchi, Wheezes, Respiratory Distress - Cardiovascular Exam Cardiovascular Exam: REGULAR RHYTHM, +S1, +S2 - GI/Abdominal Exam GI & Abdominal Exam: Soft, Normal Bowel Sounds. absent: Distended, Firm, Guarding, Rigid, Tenderness - Extremities Exam Extremities Exam: Normal Inspection. absent: Calf Tenderness, Pedal Edema - Neurological Exam Neurological Exam: Alert, Awake, Oriented x3 Neuro motor strength exam: Left Upper Extremity: 5, Right Upper Extremity: 5, Left Lower Extremity: 4, Right Lower Extremity: 5 - Psychiatric Exam Psychiatric exam: Normal Affect, Normal Mood - Skin Skin Exam: Dry, Warm Assessment and Plan - Assessment and Plan (Free Text) Plan: Left Lower extremity weakness Neurology Consulted, Dr. Hameed - help appreciated * No neurology intervention at this time * Recommend PT - weakness and gait instability ID Consulted, Dr. Olguin - help appreciated Head CT (09/16): * No intracranial hemorrhage, mass effect or cortical edema is identified. 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 Lucency at the inferior left external capsule may reflect the same though small infarct of indeterminate age is difficult to exclude here. Follow-up CT or MRI is recommended Lumbar Spine CT (09/17): * Limited disc bulging is seen at L3-4 and L4-5 without generalized central canal stenosis at either level although the lateral recesses are encroached L4- 5 due to combined facet joint degenerative changes with disc bulging. No gross disc herniation. Straightened lumbar curvature. MRI is available for follow- up if clinically warranted Brain MRI (09/19): * No acute intracranial abnormality. * Minimal chronic microangiopathic changes and mild age-related global parenchymal volume loss. Hip Xray (09/19): * No demonstrated fracture or dislocation Hypertension Cardiology Consulted, Dr. Young - help appreciated controlled Aspirin 325mg PO daily Amlodipine 5mg PO daily Propranolol 10mg PO BID Crestor 10mg PO HS [facility] Lovenox 40mg SC daily Protonix 40mg PO daily All medical management per Dr. Holley
[2017-09-19 20:19] LABS: URINE BACTERIA RARE (<OCC); URINE BILIRUBIN NEGATIVE (NEGATIVE); URINE BLOOD NEGATIVE (NEGATIVE); URINE CLARITY Clear (Clear); URINE COLOR Yellow (YELLOW); URINE GLUCOSE (UA) NORMAL (Normal); URINE LEUKOCYTE ESTERASE NEG Leu/uL (Negative); URINE PROTEIN NEGATIVE (NEGATIVE)
--- NOTE | 2017-09-20 01:23 | CON ---
DATE: 09/19/2017 HISTORY OF PRESENT ILLNESS: The patient is a 56-year-old male. He gives me the address where he comes from. He is from a [facility]. He was brought here as he is not able to move his right lower extremity. I went to see him because he was having low-grade temperatures, and he was put on Rocephin yesterday. He denies any pain in the left leg, but he does complain of pain in the right hip, and he is not moving his right leg at this time. He denies any chest pain. No shortness of breath. No abdominal pain. He is awake and alert; however, he has a very poor dental hygiene as well as broken tooth that he is not taking care of and broken partially and hygiene is poor. He denies any chest pain. No shortness of breath. No cough and no cold, but he says he is not able to move his right leg now. In the ER, I saw it is within the left leg, so I am not sure if it was left leg weakness before or I cannot explain. He came here with altered mental status, but he is awake, alert, able to give me his address and he says he lives in the [facility], around 10 people are living there. PAST MEDICAL HISTORY: Significant for anxiety, depression. He also has, I do not what kind of hepatitis they have written, hypertension, schizophrenia. He has had laryngoscopy and tracheoscopy in 2013 and has had a closed endoscopic biopsy of his large intestine in 2014. FAMILY HISTORY: Not known. SOCIAL HISTORY: Significant, he smokes. Denies any alcohol. No drug abuse. REVIEW OF SYSTEMS: The patient denies any fevers at home. Denies any throat problem. Denies any chest pain. No shortness of breath. He denies any abdominal pain. No nausea. No vomiting. Cannot move his right leg. He denies any trauma. He is a poor historian as such also. He does have a scar on his abdomen, a midline scar, unclear what was done. When I see here, I do not have any surgery details. MEDICATIONS: He is on Tylenol, Norvasc, aspirin, Dulcolax. He is on Rocephin at this time, on Lovenox, folic acid. His home meds are pending. He is on multivitamin for tonics and Inderal and Crestor. PHYSICAL EXAMINATION: VITAL SIGNS: I find his temperature is 98.2, pulse 87, blood pressure remains on the low side of 94/57, respirations are 20. He did have a temperature of 100.4 yesterday and heart rate is 87. Blood pressure is low right now and respirations are 18. HEAD: Atraumatic, normocephalic. He is following simple commands. Pupils are reacting to light. Throat: Poor hygiene. NECK: Supple. JVP is flat. Trachea is central. LUNGS: Clear. No crackles or rales present. HEART: S1, S2 are regular. ABDOMEN: Soft, nontender. No guarding, no rigidity present. Midline surgical scar present. MUSCULOSKELETAL: He is complaining of pain on the right hip, but clinically I do not find much and he is not lifting his leg. So, we will get an x-ray done. EXTREMITIES: No edema. LABORATORY DATA: Labs are noted. Labs show white count is 9.8, hemoglobin 12.5, hematocrit 37, platelet count is 270. BUN is 18, creatinine is 1. C-reactive protein is 219.80, so it is very high. Procalcitonin is 0.09. Drug screen was negative. UA shows wbc less than 1 and rbc's 11. He did have a lumbar spine CAT scan, and the lumbar spine CAT scan shows limited disk bulging is seen in L3-L4 and L4-L5 without generalized central canal stenosis. The lateral recesses 4 to 5 due to combined facet joint degenerative changes with disk bulging. This is in L4 and L5. It says without central canal stenosis, there is no stenosis to give him this problem at this time. We have done septic workup. We will follow those. There is a report of an MRI of brain which shows no acute intracranial, minimal chronic microangiopathic changes and mild age-related global parenchymal volume loss. So at this time, we will order x-ray of the right hip and pelvis. We will follow. Augustina Olguin MD [facility]
[2017-09-20 07:27] LABS: BASO # 0.1 K/uL (0.0-0.2); BASO % 0.7 % (0.0-2.0); EOS # 0.2 K/uL (0.0-0.7); EOS % 2.3 % (0.0-4.0); HEMOGLOBIN 11.2 g/dL (12.0-18.0); LYMPH # 1.1 K/uL (1.0-4.3); LYMPH % 14.8 % (20.0-40.0); MEAN CELL VOLUME 87.6 fL (80.0-94.0); MEAN CORPUSCULAR HEMOGLOBIN 29.9 pg (27.0-31.0); MEAN CORPUSCULAR HGB CONC 34.1 g/dL (33.0-37.0); MEAN PLATELET VOLUME 8.1 fL (7.2-11.7); MONO % 12.5 % (0.0-10.0); NEUT # 5.4 K/uL (1.8-7.0); NEUT % 69.7 % (50.0-75.0); RBC 3.73 Mil/uL (4.40-5.90); RED CELL DISTRIBUTION WIDTH 13.9 % (11.5-14.5); WHITE BLOOD COUNT 7.7 K/uL (4.8-10.8)
[2017-09-20 08:06] LABS: ALB/GLOB RATIO 1.1 (1.0-2.1); ALBUMIN 3.1 g/dL (3.5-5.0); ALT/SGPT 35 U/L (21-72); AST/SGOT 25 U/L (17-59); BLOOD UREA NITROGEN 15 mg/dL (9-20); CALCIUM 8.2 mg/dl (8.6-10.4); GFR AFRICAN-AMERICAN > 60; GFR NON-AFRICAN AMERICAN > 60
[2017-09-20] MEDS: Enoxaparin 40 mg Syringe SC SCH (10:07)
[2017-09-20] MEDS: Pantoprazole 40 mg EC Tab PO SCH (10:08)
[2017-09-20] MEDS: Multiple Vitamins Tab PO SCH (10:08)
[2017-09-20] MEDS: Bisacodyl 5mg EC Tab PO PRN (10:08)
--- NOTE | 2017-09-20 15:30 | CP.PCM.PN ---
Subjective - Date & Time of Evaluation Date of Evaluation: 09/20/17 Time of Evaluation: 11:30 - Subjective Subjective: PGY2 Medicine Note for Dr. Maci Holley Patient seen and examined at bedside this morning. No acute events overnight. Patient states he is feeling stronger. He was able to work with physical therapy and was recommended for rehab. He is willing to go to rehab for a few days to continue to get stronger. He has no complaints at this time. ROS negative other than lower ext. weakness b/l. Objective - Vital Signs/Intake and Output Vital Signs (last 24 hours): Temp Pulse Resp BP Pulse Ox 98.8 F 86 20 103/66 100 09/20/17 07:40 09/20/17 13:35 09/20/17 07:40 09/20/17 07:40 09/20/17 07:40 Intake and Output: 09/20/17 09/20/17 06:59 18:59 Intake Total 100 Output Total 600 Balance -500 - Medications Medications: Current Medications Acetaminophen (Tylenol 325mg Tab) 650 mg PO Q8 PRN PRN Reason: Fever >100.4 F Last Admin: 09/18/17 21:31 Dose: 650 mg Amlodipine Besylate (Norvasc) 5 mg PO DAILY [facility] Last Admin: 09/20/17 10:08 Dose: 5 mg Aspirin (Aspirin) 325 mg PO DAILY [facility] Last Admin: 09/20/17 11:00 Dose: 325 mg Bisacodyl (Dulcolax) 5 mg PO BID PRN PRN Reason: Constipation Last Admin: 09/20/17 10:08 Dose: 5 mg Enoxaparin Sodium (Lovenox) 40 mg SC DAILY [facility] Last Admin: 09/20/17 10:07 Dose: 40 mg Folic Acid (Folic Acid) 1 mg PO DAILY [facility] Last Admin: 09/20/17 10:09 Dose: 1 mg Home Med (Clozapine [Clozapine Odt]) 100 mg PO BID [facility] Ceftriaxone Sodium 1 gm/ (Sodium Chloride) 100 mls @ 100 mls/hr IVPB DAILY [facility] PRN Reason: Protocol Last Admin: 09/20/17 10:07 Dose: 100 mls/hr Lactulose (Enulose) 20 gm PO HS [facility] Multivitamins (Hexavitamin) 1 tab PO DAILY [facility] Last Admin: 09/20/17 10:08 Dose: 1 tab Pantoprazole Sodium (Protonix Ec Tab) 40 mg PO DAILY [facility] Last Admin: 09/20/17 10:08 Dose: 40 mg Propranolol HCl (Inderal) 10 mg PO BID [facility] Last Admin: 09/20/17 10:08 Dose: 10 mg Rosuvastatin Calcium (Crestor) 10 mg PO HS [facility] Last Admin: 09/19/17 22:19 Dose: 10 mg - Labs Labs: 09/20/17 06:51 09/20/17 06:51 PT 14.8 SECONDS (9.7-12.2) H 09/16/17 12:18 INR 1.4 09/16/17 12:18 APTT 37 SECONDS (21-34) H 09/16/17 12:18 - Constitutional Appears: Non-toxic, No Acute Distress, Older Than Stated Age - Head Exam Head Exam: NORMOCEPHALIC - Eye Exam Eye Exam: Normal appearance - ENT Exam ENT Exam: Mucous Membranes Moist Additional comments: poor dentition - Respiratory Exam Respiratory Exam: Clear to Ausculation Bilateral, NORMAL BREATHING PATTERN. absent: Accessory Muscle Use, Rales, Rhonchi, Wheezes, Respiratory Distress - Cardiovascular Exam Cardiovascular Exam: REGULAR RHYTHM, +S1 - GI/Abdominal Exam GI & Abdominal Exam: Soft. absent: Distended, Firm, Guarding, Rigid, Tenderness - Extremities Exam Extremities Exam: absent: Calf Tenderness, Pedal Edema - Neurological Exam Neurological Exam: Alert, Awake, CN II-XII Intact, Oriented x3 Neuro motor strength exam: Left Upper Extremity: 5, Right Upper Extremity: 5, Left Lower Extremity: 4, Right Lower Extremity: 4 - Psychiatric Exam Psychiatric exam: Normal Affect, Normal Mood - Skin Skin Exam: Dry, Warm Assessment and Plan - Assessment and Plan (Free Text) Plan: Left Lower extremity weakness Neurology Consulted, Dr. Hameed - help appreciated * No neurology intervention at this time * Recommend PT - weakness and gait instability ID Consulted, Dr. Olguin - help appreciated Head CT (09/16): * No intracranial hemorrhage, mass effect or cortical edema is identified. 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 Lucency at the inferior left external capsule may reflect the same though small infarct of indeterminate age is difficult to exclude here. Follow-up CT or MRI is recommended Lumbar Spine CT (09/17): * Limited disc bulging is seen at L3-4 and L4-5 without generalized central canal stenosis at either level although the lateral recesses are encroached L4- 5 due to combined facet joint degenerative changes with disc bulging. No gross disc herniation. Straightened lumbar curvature. MRI is available for follow- up if clinically warranted Brain MRI (09/19): * No acute intracranial abnormality. * Minimal chronic microangiopathic changes and mild age-related global parenchymal volume loss. Hip Xray (09/19): * No demonstrated fracture or dislocation Hypertension Cardiology Consulted, Dr. Young - help appreciated controlled Aspirin 325mg PO daily Amlodipine 5mg PO daily Propranolol 10mg PO BID Crestor 10mg PO HS Prophylactic Care Lovenox 40mg SC daily Protonix 40mg PO daily PT - recommending [facility] DISPO: Discussed plan for [facility] with SW. Hopeful discharge tomorrow. All medical management per Dr. Holley
--- NOTE | 2017-09-20 18:03 | CP.PCM.PN ---
Subjective - Date & Time of Evaluation Date of Evaluation: 09/20/17 Time of Evaluation: 10:20 - Subjective Subjective: clinically same Objective - Vital Signs/Intake and Output Vital Signs (last 24 hours): Temp Pulse Resp BP Pulse Ox 98.2 F 74 20 99/63 L 100 09/20/17 15:38 09/20/17 15:38 09/20/17 15:38 09/20/17 15:38 09/20/17 15:38 Intake and Output: 09/20/17 09/20/17 06:59 18:59 Intake Total 100 Output Total 1050 Balance -950 - Medications Medications: Current Medications Acetaminophen (Tylenol 325mg Tab) 650 mg PO Q8 PRN PRN Reason: Fever >100.4 F Last Admin: 09/18/17 21:31 Dose: 650 mg Amlodipine Besylate (Norvasc) 5 mg PO DAILY [facility] Last Admin: 09/20/17 10:08 Dose: 5 mg Aspirin (Aspirin) 325 mg PO DAILY [facility] Last Admin: 09/20/17 11:00 Dose: 325 mg Bisacodyl (Dulcolax) 5 mg PO BID PRN PRN Reason: Constipation Last Admin: 09/20/17 10:08 Dose: 5 mg Enoxaparin Sodium (Lovenox) 40 mg SC DAILY [facility] Last Admin: 09/20/17 10:07 Dose: 40 mg Folic Acid (Folic Acid) 1 mg PO DAILY [facility] Last Admin: 09/20/17 10:09 Dose: 1 mg Home Med (Clozapine [Clozapine Odt]) 100 mg PO BID [facility] Ceftriaxone Sodium 1 gm/ (Sodium Chloride) 100 mls @ 100 mls/hr IVPB DAILY [facility] PRN Reason: Protocol Last Admin: 09/20/17 10:07 Dose: 100 mls/hr Lactulose (Enulose) 20 gm PO HS [facility] Last Admin: 09/19/17 22:00 Dose: Not Given Multivitamins (Hexavitamin) 1 tab PO DAILY [facility] Last Admin: 09/20/17 10:08 Dose: 1 tab Pantoprazole Sodium (Protonix Ec Tab) 40 mg PO DAILY [facility] Last Admin: 09/20/17 10:08 Dose: 40 mg Propranolol HCl (Inderal) 10 mg PO BID [facility] Last Admin: 09/20/17 10:08 Dose: 10 mg Rosuvastatin Calcium (Crestor) 10 mg PO HS [facility] Last Admin: 09/19/17 22:19 Dose: 10 mg - Labs Labs: 09/20/17 06:51 09/20/17 06:51 PT 14.8 SECONDS (9.7-12.2) H 09/16/17 12:18 INR 1.4 09/16/17 12:18 APTT 37 SECONDS (21-34) H 09/16/17 12:18 - Constitutional Appears: Well - Head Exam Head Exam: ATRAUMATIC, NORMAL INSPECTION, NORMOCEPHALIC - Eye Exam Eye Exam: EOMI, Normal appearance, PERRL Pupil Exam: NORMAL ACCOMODATION, PERRL - ENT Exam ENT Exam: Mucous Membranes Moist, Normal Exam - Neck Exam Neck Exam: Full ROM, Normal Inspection. absent: Lymphadenopathy - Respiratory Exam Respiratory Exam: Decreased Breath Sounds - Cardiovascular Exam Cardiovascular Exam: REGULAR RHYTHM, +S1, +S2 - GI/Abdominal Exam GI & Abdominal Exam: Soft, Diminished Bowel Sounds - Rectal Exam Rectal Exam: Deferred
--- NOTE | 2017-09-20 23:40 | PQF ---
PROVIDER RESPONSE TEXT: Alcoholic Polyneuropathy REVIEWER QUERY TEXT: Clarification of Clinical Diagnostic Findings Please clarify documentation or clinical relevance for the clinical / diagnostic findings or whether those are insignificant or unable to be further specified. Unable to determine other The patient's Clinical Indicators include: ?56-year-old male sent to the ER from a detention for evaluation of left lower extremity weakness fo r 3 days". Patient with history of alcohol abuse/use. H/P: Neurological: Positive for: Weakness (left leg weakness), Headache. Extremity: Bilateral: Atraumatic, No Pedal Edema, Normal Color and Temperature, Normal ROM (with no f ocal deficits elicited on exam). CT HEAD W/O CONTRAST: No intracranial hemorrhage, mass effect or cortical edema is identified. Likely chronic microangiopat hy is appreciated minimally at the bilateral frontal left parietal lobes. Lucency at the inferior lef t external capsule may reflect the same though small infarct of indeterminate age is difficult to exc lude here. CT LUMBAR SPINE W/O CONTRAST: Limited disc bulging is seen at L3-4 and L4-5 without generalized central canal stenosis at either le ulises although the lateral recesses are encroached L4-5 due to combined facet joint degenerative change s with disc bulging. No gross disc herniation. Straightened lumbar curvature Please consider verify and document Alcoholic Polyneuropathy, if agree. Query created by: Harinder Wilson on 09/20/2017 12:12 PM Electronically signed by: Maggy WEBER 09/20/2017 11:37 PM
[2017-09-21] MEDS: Enoxaparin 40 mg Syringe SC SCH (09:30)
[2017-09-21] MEDS: Bisacodyl 5mg EC Tab PO PRN (09:30)
[2017-09-21] MEDS: Multiple Vitamins Tab PO SCH (09:30)
[2017-09-21] MEDS: Pantoprazole 40 mg EC Tab PO SCH (09:37)
--- NOTE | 2017-09-21 13:45 | CP.PCM.PN ---
Subjective - Date & Time of Evaluation Date of Evaluation: 09/21/17 Time of Evaluation: 07:15 - Subjective Subjective: PGY2 Medicine Note for Dr. Maci Holley Patient was seen and examined at [facility] this morning. No acute events overnight. Patient is resting comfortably in his bed. He is feeling stronger today and has been progressing with PT the past couple of days, per patient. He is hopeful for discharge to [facility] today has he has no complaints and is feeling much better compared to when he came in. ROS is negative. Objective - Vital Signs/Intake and Output Vital Signs (last 24 hours): Temp Pulse Resp BP Pulse Ox 98.6 F 74 20 107/69 99 09/21/17 08:00 09/21/17 12:00 09/21/17 08:00 09/21/17 08:00 09/21/17 08:00 Intake and Output: 09/21/17 09/21/17 06:59 18:59 Output Total 250 Balance -250 - Medications Medications: Current Medications Acetaminophen (Tylenol 325mg Tab) 650 mg PO Q8 PRN PRN Reason: Fever >100.4 F Last Admin: 09/18/17 21:31 Dose: 650 mg Amlodipine Besylate (Norvasc) 5 mg PO DAILY [facility] Last Admin: 09/21/17 09:30 Dose: 5 mg Aspirin (Aspirin) 325 mg PO DAILY [facility] Last Admin: 09/21/17 09:37 Dose: 325 mg Bisacodyl (Dulcolax) 5 mg PO BID PRN PRN Reason: Constipation Last Admin: 09/21/17 09:30 Dose: 5 mg Enoxaparin Sodium (Lovenox) 40 mg SC DAILY [facility] Last Admin: 09/21/17 09:30 Dose: 40 mg Folic Acid (Folic Acid) 1 mg PO DAILY [facility] Last Admin: 09/21/17 09:30 Dose: 1 mg Home Med (Clozapine [Clozapine Odt]) 100 mg PO BID [facility] Ceftriaxone Sodium 1 gm/ (Sodium Chloride) 100 mls @ 100 mls/hr IVPB DAILY [facility] PRN Reason: Protocol Last Admin: 09/21/17 09:29 Dose: 100 mls/hr Lactulose (Enulose) 20 gm PO HS [facility] Last Admin: 09/20/17 22:19 Dose: 20 gm Multivitamins (Hexavitamin) 1 tab PO DAILY [facility] Last Admin: 09/21/17 09:30 Dose: 1 tab Pantoprazole Sodium (Protonix Ec Tab) 40 mg PO DAILY [facility] Last Admin: 09/21/17 09:37 Dose: 40 mg Propranolol HCl (Inderal) 10 mg PO BID [facility] Last Admin: 09/21/17 09:30 Dose: 10 mg Rosuvastatin Calcium (Crestor) 10 mg PO HS [facility] Last Admin: 09/20/17 22:19 Dose: 10 mg - Labs Labs: 09/20/17 06:51 09/20/17 06:51 PT 14.8 SECONDS (9.7-12.2) H 09/16/17 12:18 INR 1.4 09/16/17 12:18 APTT 37 SECONDS (21-34) H 09/16/17 12:18 - Constitutional Appears: Non-toxic, No Acute Distress - Head Exam Head Exam: ATRAUMATIC, NORMOCEPHALIC - Eye Exam Eye Exam: Normal appearance. absent: Scleral icterus - ENT Exam ENT Exam: Mucous Membranes Moist Additional comments: poor dentition - Respiratory Exam Respiratory Exam: Clear to Ausculation Bilateral, NORMAL BREATHING PATTERN. absent: Accessory Muscle Use, Rales, Rhonchi, Wheezes, Respiratory Distress - Cardiovascular Exam Cardiovascular Exam: REGULAR RHYTHM, +S1 - GI/Abdominal Exam GI & Abdominal Exam: Soft. absent: Distended, Firm, Guarding, Rigid, Tenderness - Extremities Exam Extremities Exam: absent: Calf Tenderness, Pedal Edema - Neurological Exam Neurological Exam: Alert, Awake, CN II-XII Intact, Oriented x3 Neuro motor strength exam: Left Upper Extremity: 5, Right Upper Extremity: 5, Left Lower Extremity: 4 (improving), Right Lower Extremity: 4 (improving) - Psychiatric Exam Psychiatric exam: Normal Affect, Normal Mood - Skin Skin Exam: Dry, Warm Assessment and Plan - Assessment and Plan (Free Text) Plan: Left Lower extremity weakness (improving) Neurology Consulted, Dr. Hameed - sherrie appreciated * No neurology intervention at this time * Recommend PT - weakness and gait instability ID Consulted, Dr. Olguin - help appreciated Head CT (09/16): * No intracranial hemorrhage, mass effect or cortical edema is identified. 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 Lucency at the inferior left external capsule may reflect the same though small infarct of indeterminate age is difficult to exclude here. Follow-up CT or MRI is recommended Lumbar Spine CT (09/17): * Limited disc bulging is seen at L3-4 and L4-5 without generalized central canal stenosis at either level although the lateral recesses are encroached L4- 5 due to combined facet joint degenerative changes with disc bulging. No gross disc herniation. Straightened lumbar curvature. MRI is available for follow- up if clinically warranted Brain MRI (09/19): * No acute intracranial abnormality. * Minimal chronic microangiopathic changes and mild age-related global parenchymal volume loss. Hip Xray (09/19): * No demonstrated fracture or dislocation Hypertension Cardiology Consulted, Dr. Young - help appreciated controlled Aspirin 325mg PO daily Amlodipine 5mg PO daily Propranolol 10mg PO BID Crestor 10mg PO HS [facility] Lovenox 40mg SC daily Protonix 40mg PO daily PT - recommending [facility] DISPO: Patient discharged to [facility] per Dr. Maci Holley on 09/21/17 with the following instructions. Patient is to be discharged to [facility] for rehab per Dr. Maci Holley Patient is to follow up with his primary care physician within one week of discharge. Patient is to take his medications as prescribed. If patient experiences any new or worsening symptoms, please go directly to the nearest emergency department. All medical management per Dr. Maci Holley
[2017-09-21 15:32] VITALS: BP 100/57; PULSE 62; RESP 18; TEMP 98.3; O2SAT 100
--- NOTE | 2017-09-22 06:55 | EEG ---
DATE: 09/19/2017 This is a 16-channel electroencephalogram of awake and drowsy adult. During the study, photic stimulation was performed. Hyperventilation was not performed. The resting electroencephalogram consists of 20 to 30 microvolt diffuse high theta activities noted at parietal and occipital leads. Anteriorly, fast activity superimposed with 2 to 3 Hz delta activities seen. Intermittent movement and blinking artifact contaminated with background rhythm. Later this activity somewhat organized to form moderate voltage alpha activities noted. The photic stimulation did not evoke driving response noted at 2 to 20 Hz. IMPRESSION: This is a normal electroencephalogram of awake and drowsy adult. During the study, neither electroencephalographic paroxysmal activities nor focal slowing noted. Flip Hameed MD
--- NOTE | 2017-09-26 11:04 | CARD ---
APPROVED REPORT Date of service: 09/16/2017 EKG Measurement Heart [id number] <Conclusion> Normal sinus rhythm Normal ECG
--- NOTE | 2017-09-26 11:06 | CARD ---
APPROVED REPORT Date of service: 09/16/2017 EKG Measurement Heart [id number] <Conclusion> Normal sinus rhythm Normal ECG
== END 2017-09-21 16:30 | DRG 948 ==
LOC: C.ER 11:33 → C.9E 14:19 → C.6T 16:26 → OBSVTOIN 09-17 17:03
PROVIDERS: ADMIT Internal Medicine Nephrology; ATTEND Internal Medicine Nephrology
DX: R53.81 Other malaise (principal); R56.9 Unspecified convulsions; F17.210 Nicotine dependence, cigarettes, uncomplicated; F20.9 Schizophrenia, unspecified; I12.9 Hypertensive chronic kidney disease with stage 1 through stage 4 chronic kidney disease, or unspecified chronic kidney disease; N18.9 Chronic kidney disease, unspecified; G62.1 Alcoholic polyneuropathy; F41.9 Anxiety disorder, unspecified; F32.9 Major depressive disorder, single episode, unspecified; F81.9 Developmental disorder of scholastic skills, unspecified; R07.89 Other chest pain; K75.9 Inflammatory liver disease, unspecified

== ENCOUNTER 2017-11-08 13:54 | Inpatient (IN) | payer MEDICARE, MEDICAID ==
--- NOTE | 2017-11-08 14:44 | C.PDOC ---
History Of Present Illness 57 yr old male w/ hx of developmental delay, anxiety, CKD, exlap, constipation presents from long term for abdominal pain, constipation. Pt notes 8d of constipation without vomiting. Per long term staff pt has been given docolax, miralax, enemas but has had repeated difficulty with passing BM. No fall or trauma. Pt denies any etoh usage or smoking usage. No fever, chills or night sweats. No chest pain or sob. No dysuria, urgency or frequency. No other complaints Time Seen by Provider: 11/08/17 14:43 Chief Complaint (Nursing): Abdominal Pain Past Medical History Vital Signs: Last Vital Signs Temp 98.2 F 11/11/17 08:06 Pulse 87 11/11/17 09:28 Resp 20 11/11/17 08:06 BP 92/56 L 11/11/17 09:28 Pulse Ox 98 11/11/17 08:06 - Medical History PMH: Anxiety, Asthma, Bronchitis, Depression, Hepatitis, HTN, Schizophrenia Denies: Chronic Kidney Disease - [facility] Procedures CLOSED ENDOSCOPIC BIOPSY OF LARGE INTESTINE (07/11/14) ESOPHAGOGASTRODUODENOSCOPY [EGD] W/CLOSED BIOPSY (11/01/12) LARYGNOSCOPY AND OTH TRACHEOSCOPY (11/01/12) VACCINATION NEC (11/01/12) Family History: States: Unknown Family Hx - Social History Hx Tobacco Use: Yes Hx Alcohol Use: No Hx Substance Use: No Review Of Systems Constitutional: Negative for: Fever Eyes: Negative for: Pain ENT: Negative for: Ear Pain Cardiovascular: Negative for: Chest Pain Respiratory: Negative for: Cough Gastrointestinal: Negative for: Nausea Genitourinary: Negative for: Dysuria Physical Exam - Physical Exam Appears: Well Skin: Normal Color Head: Atraumatic Nose: Normal Neck: Normal, No Normal ROM, No Midline Cervical Tenderness, Other (no meningeal signs) Chest: Symmetrical Cardiovascular: Rhythm Regular Respiratory: Normal Breath Sounds Gastrointestinal/Abdominal: No Normal Exam, Tenderness (donya-umbilical), Distention Back: Normal Inspection Extremity: Normal ROM Neurological/Psych: Normal Speech, No Cerebellar Signs, Other (AOx2,- per [facility], his baseline ) ED Course And Treatment - Laboratory Results Result Diagrams: 11/10/17 07:47 11/10/17 07:47 O2 Sat by Pulse Oximetry: 98 Medical Decision Making Medical Decision Makin57 year old male w/ hx of exlap p/w constipation x8d. Given hx of surgery, distension + constipation, poor historian will seek CT to rule out SBO. Pending labs and imaging 1903 Imaging w/ SBO vs chronic constipation appreciate consult w/ Dr. Judd, NG tube and he will see pt spoke to surgical supply assistant- to place NG tube Disposition - Disposition Disposition: HOSPITALIZED Disposition Time: 19:00 Condition: GOOD - Clinical Impression Clinical Impression: Abdominal pain
[2017-11-08] MEDS ORDERED: Sodium Chloride 0.9% 1,000 ML IV SCH (15:30)
[2017-11-08] MEDS ORDERED: Sodium Chloride 0.9% 1,000 ML ONE (15:47)
[2017-11-08 15:50] LABS: BASO % 0.4 % (0.0-2.0); EOS % 0.1 % (0.0-4.0); HEMOGLOBIN 14.5 g/dL (12.0-18.0); LYMPH # 1.1 K/uL (1.0-4.3); LYMPH % 12.2 % (20.0-40.0); MEAN CELL VOLUME 88.6 fL (80.0-94.0); MEAN CORPUSCULAR HEMOGLOBIN 29.7 pg (27.0-31.0); MEAN CORPUSCULAR HGB CONC 33.5 g/dL (33.0-37.0); MEAN PLATELET VOLUME 8.4 fL (7.2-11.7); MONO # 0.4 K/uL (0.0-0.8); NEUT # 7.4 K/uL (1.8-7.0); NEUT % 83.3 % (50.0-75.0); RBC 4.87 Mil/uL (4.40-5.90); RED CELL DISTRIBUTION WIDTH 15.6 % (11.5-14.5); WHITE BLOOD COUNT 8.9 K/uL (4.8-10.8)
[2017-11-08 16:05] LABS: ALB/GLOB RATIO 1.5 (1.0-2.1); ALBUMIN 4.6 g/dL (3.5-5.0); BLOOD UREA NITROGEN 17 mg/dL (9-20); CALCIUM 9.3 mg/dl (8.6-10.4); GFR NON-AFRICAN AMERICAN > 60; LIPASE 46 U/L (23-300)
[2017-11-08 16:11] LABS: ALT/SGPT 18 U/L (21-72); AST/SGOT 25 U/L (17-59)
[2017-11-08 16:29] LABS: VENOUS BLOOD GAS BASE EXCESS -0.6 mmol/L (0.0-2.0); VENOUS BLOOD GAS PCO2 58 mmHg (40-60); VENOUS BLOOD GAS PO2 20 mm/Hg (30-55); VENOUS BLOOD PH 7.28 (7.32-7.43)
[2017-11-08] MEDS ORDERED: Iohexol 300 100 ML IJ ONE (16:52)
--- NOTE | 2017-11-08 18:45 | CT ---
PROCEDURE: CT Abdomen and Pelvis with oral and IV contrast. HISTORY: abd pain, distension COMPARISON: CT abdomen performed 11/18/16 TECHNIQUE: Contiguous axial images of the abdomen and pelvis. Oral and IV contrast was administered. Coronal and Sagittal reformats generated and reviewed. Contrast dose: 100 cc Omnipaque 300 Radiation dose: Total exam DLP = 361.34 mGy-cm. This CT exam was performed using one or more of the following dose reduction techniques: Automated exposure control, adjustment of the mA and/or kV according to patient size, and/or use of iterative reconstruction technique. FINDINGS: LOWER THORAX: Right basilar atelectasis/infiltrate. No visible pleural effusion or pneumothorax. LIVER: Too small to characterize hepatic hypodensities; statistically likely cysts or hemangiomas. GALLBLADDER AND BILE DUCTS: Unremarkable. PANCREAS: Pancreatic atrophy. SPLEEN: Diminutive spleen. ADRENALS: Unremarkable. KIDNEYS AND URETERS: The kidneys enhance symmetrically. No hydronephrosis or obstructing renal calculus. Bilateral low-density renal lesions, possibly cysts. BLADDER: The urinary bladder appears unremarkable. REPRODUCTIVE: The prostate gland appears borderline enlarged; recommend correlation with PSA. APPENDIX: The appendix appears within normal limits of caliber. No secondary signs of acute appendicitis. BOWEL: The stomach is nondistended. Fluid-filled loops of small bowel in the mid abdomen, possibly ileus however obstruction is not excluded given limitations of the study. Recommend follow-up plain film radiographs to assess for oral contrast extending into the colon. Markedly dilated colon with evidence of severe constipation. PERITONEUM: No significant free fluid. No definite free air. LYMPH NODES: No bulky lymphadenopathy identified. VASCULATURE: No aortic aneurysm. BONES: Degenerative changes. OTHER FINDINGS: Again seen anterior lateral to the liver is an elliptical shaped hypodensity which appears cystic ; unclear etiology. IMPRESSION: Fluid-filled dilated loops of small bowel in the mid abdomen, possibly ileus however obstruction is not excluded given limitations of the study. Recommend follow-up plain film radiographs to assess for oral contrast extension into the colon. Markedly dilated colon with evidence of severe constipation. The prostate gland appears borderline enlarged; recommend correlation with PSA. Again seen anterior lateral to the liver is an elliptical shaped hypodensity which appears cystic ; unclear etiology. Right basilar atelectasis/infiltrate. Additional findings as above.
[2017-11-08 19:45] LABS: SQUAMOUS EPITHIAL < 1 /hpf (0-5); URINE BACTERIA RARE (<OCC); URINE BILIRUBIN NEGATIVE (NEGATIVE); URINE BLOOD 1+ (NEGATIVE); URINE CLARITY Clear (Clear); URINE COLOR Yellow (YELLOW); URINE GLUCOSE (UA) NORMAL (Normal); URINE LEUKOCYTE ESTERASE NEG Leu/uL (Negative); URINE PROTEIN NEGATIVE (NEGATIVE)
[2017-11-08] MEDS ORDERED: Potassium Chloride 20 MEQ in Dextrose 5%/0.9% NS 1,000 ML IV ONE (23:10)
[2017-11-09] MEDS ORDERED: CLOZAPINE 100 MG PO SCH ×2 (10:00→18:00)
--- NOTE | 2017-11-09 11:37 | CP.PCM.PN ---
Subjective - Date & Time of Evaluation Date of Evaluation: 11/09/17 Time of Evaluation: 11:29 - Subjective Subjective: Examined pt in ER holding 10. Pt with hale cath which was pulled out in ER. PT has no hx of urinary difficulties prior to admit. Admisson CT shows no evidence of Bladder distention. [address]ed last night. PTvoided 350 cc of tea colered urine.I was unable to re insert hale due to previous post urethral injury from hale. Suggest Leave hale out if pt continues to void. If he goes into urinary retention pt will need cystoscopy. Helga Objective - Vital Signs/Intake and Output Vital Signs (last 24 hours): Temp Pulse Resp BP Pulse Ox 98.6 F 105 H 22 113/69 100 11/09/17 07:45 11/09/17 07:45 11/09/17 07:45 11/09/17 07:45 11/09/17 07:45 Intake and Output: 11/09/17 11/09/17 06:59 18:59 Output Total 2100 Balance -2100 - Medications Medications: Current Medications Home Med (Clozapine [Clozapine Odt]) 100 mg PO BID [facility] Propranolol HCl (Inderal) 10 mg PO BID [facility] - Labs Labs: 11/08/17 15:46 11/08/17 15:46
[2017-11-09] MEDS ORDERED: Potassium Ch 20mEq in D5W 1,000 ML IV SCH (12:45)
[2017-11-09] MEDS ORDERED: Potassium Chloride 20 MEQ in Dextrose 5%/0.9% NS 1,000 ML IV ONE (13:00)
[2017-11-09 15:41] VITALS: RESP 20
--- NOTE | 2017-11-10 03:22 | CON ---
DATE: 11/09/2017 HISTORY: This is a 57-year-old male with history of developmental delay and several medical problems including asthma, depression, hepatitis, hypertension, schizophrenia who presented yesterday with abdominal pain and constipation. PAST MEDICAL HISTORY: As noted above. PAST SURGICAL HISTORY: Significant for laparotomy for possible bowel obstruction several years ago. FAMILY HISTORY: Noncontributory. REVIEW OF SYSTEMS: Noncontributory. PHYSICAL EXAMINATION: GENERAL: He is a well-developed male in no acute distress. ABDOMEN: Pertinent physical findings includes the abdominal exam, which revealed mildly distended, but soft, nontender with positive bowel sounds. DIAGNOSTICS: Review of his CAT scan from yesterday revealed a couple of small food filled bowel loops but no evidence of obstruction. IMPRESSION: The patient is chronically constipated secondary to his multiple medical issues. He should be treated nonsurgically. Christopher Judd MD
--- NOTE | 2017-11-10 05:25 | HP ---
HISTORY OF PRESENT ILLNESS: This is a 57-year-old male with history of multiple medical problems presented to emergency room for abdominal pain that has been progressive over 2 days. The patient was evaluated in emergency room, and CAT scan of the abdomen and pelvis was done that showed fluid-filled dilated loops of small bowel in the mid abdomen, possibly ileus. However obstruction is not excluded given the limitations of the study. Markedly dilated colon with evidence of severe constipation. The prostate gland appeared borderline enlarged. The patient had a surgical consultation done and was admitted for further management. There are no symptoms of vomiting. While the patient was in the emergency room also, he was noticed to have urinary retention and patient had traumatic cardiac exertion. Other review of system is negative. ALLERGIES: NO KNOWN ALLERGIES. MEDICATIONS: Reviewed and some oral medications were ordered as the patient was kept n.p.o. SOCIAL HISTORY: Positive for smoking. No EtOH or substance abuse. FAMILY HISTORY: Not contributory. PAST MEDICAL HISTORY: Hepatitis C, hypertension, hypercholesterolemia, COPD, smoker. PHYSICAL EXAMINATION: GENERAL: The patient is not in any cardiopulmonary distress at the time of this examination. VITAL SIGNS: Blood pressure 110/73, temperature 98.4, respiratory rate 18, and pulse 90. HEENT: Pupils equal and reactive to light. Normal appearing mucosa of the conjunctivae, oropharynx, and nasal membrane mucosa. Poor oral hygiene. NECK: Supple. No JVD. No carotid bruit. No lymph node. No thyromegaly. CHEST AND LUNGS: Bilateral symmetrical expansion. Good air exchange. No rales, no rhonchi. CARDIOVASCULAR SYSTEM: PMI not localized. S1, S2. No additional sounds. ABDOMEN: There is positive bowel sounds, it is slightly distended. No tenderness or organomegaly or masses. EXTREMITIES: No cyanosis, no clubbing, no edema. 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 ASSESSMENT: 1. Severe constipation with possible small bowel obstruction and ileus. 2. Hypertension. 3. Smoker. 4. Chronic obstructive pulmonary disease. PLAN: Urology consult regarding the traumatic insertion of the Martino catheter and surgical consultation. We will keep the patient n.p.o. IV fluid and monitor electrolytes. We will advance diet as tolerated. Give the patient lactulose versus GoLYTELY for severe constipation. [facility] MD [facility]av[facility] # [id number]
[2017-11-10 08:16] LABS: BASO % 0.2 % (0.0-2.0); EOS % 0.5 % (0.0-4.0); LYMPH # 1.6 K/uL (1.0-4.3); LYMPH % 19.5 % (20.0-40.0); MEAN CELL VOLUME 87.9 fL (80.0-94.0); MEAN CORPUSCULAR HEMOGLOBIN 29.6 pg (27.0-31.0); MEAN CORPUSCULAR HGB CONC 33.6 g/dL (33.0-37.0); MEAN PLATELET VOLUME 8.4 fL (7.2-11.7); MONO # 0.9 K/uL (0.0-0.8); MONO % 10.8 % (0.0-10.0); NEUT # 5.7 K/uL (1.8-7.0); RBC 3.27 Mil/uL (4.40-5.90); RED CELL DISTRIBUTION WIDTH 15.5 % (11.5-14.5); WHITE BLOOD COUNT 8.2 K/uL (4.8-10.8)
[2017-11-10 08:26] LABS: HEMOGLOBIN 9.7 g/dL (12.0-18.0)
[2017-11-10 08:34] LABS: BLOOD UREA NITROGEN 5 mg/dL (9-20); CALCIUM 7.9 mg/dl (8.6-10.4); GFR NON-AFRICAN AMERICAN > 60
--- NOTE | 2017-11-10 22:53 | PN ---
DATE: 11/10/2017 SUBJECTIVE: The patient is seen today, 11/10/2017. He is not in any cardiopulmonary distress. Abdominal pain is less. The patient was started on diet and he was seen by Surgery. PHYSICAL EXAMINATION: VITAL SIGNS: Blood pressure 102/65, temperature 98.1, respiratory rate 20, and pulse 88. HEENT: Pupils equal, and reactive to light. Normal-appearing mucosa of the conjunctivae, oropharynx, and nasal membrane mucosa. NECK: Supple. No JVD. No carotid bruit. No lymph node. No thyromegaly. CHEST AND LUNGS: Bilateral symmetrical expansion. Good air exchange. No rales, no rhonchi. CARDIOVASCULAR SYSTEM: PMI not localized. S1, S2. No additional sounds. ABDOMEN: Normoactive bowel sounds. No tenderness. No organomegaly. No masses. EXTREMITIES: No cyanosis, no clubbing, no edema. 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 No neurological deficit could be appreciated. ASSESSMENT: 1. Abdominal pain and ileus, likely secondary to chronic constipation. 2. History of hepatitis C. 3. Anemia of chronic disease. PLAN: We will give the patient lactulose 30 mL every 4 hours until bowel movement. Follow Surgical consult recommendations. Continue current medications including his psychiatric medications. Psych consult for ordering his psych medicine. Akil Cunningham MD
[2017-11-11 00:22] VITALS: O2SAT 98
[2017-11-11 08:07] VITALS: TEMP 98.2
[2017-11-11 09:28] VITALS: BP 92/56; PULSE 87
--- NOTE | 2017-11-11 10:27 | PCM.PSYCH ---
Initial Psychiatric Evaluation - Initial Psychiatric Evaluation Type of Admission: Voluntary Legal Status: Capacity Chief Complaint (in patient's own words): "I'm doing okay History of Present Illness and Precipitating Events: 57 yr old male AAF w/ hx of developmental delay, Schizophrenia, CKD, exlap, constipation presents from prison for abdominal pain, constipation. Today pt was consulted. Pt is stable. Pt denies any depressive or manic symptoms. Per the nurse, psych consulted because pharmacy requires psychiatrist to order clozapine. Pt was presenting to the hospital for abdominal pain and constipation , and was managed. Pt denies SI/HI, pt denies feeling anxious, paranoia, or having any panic attacks. Pt denies smoking. Pt denies drinking EtOH. Pt denies any other drug usage. Pt requires clozapine Psych Hx: Schizophrenia, depression, anxiety Family Psych hx: Pt denies Medical Hx: Asthma, bronchitis, hepatitis, HTN Traumatic Hx: Pt denies Current Medications: Active Medications Generic Name Dose Route Start Last Admin Trade Name Freq PRN Reason Stop Dose Admin Docusate Sodium 100 mg 11/10/17 14:00 11/11/17 09:29 Colace PO 100 mg TID CATHERINE Administration Home Med 100 mg 11/09/17 18:00 Clozapine [Clozapine Odt] PO BID CATHERINE Lactulose 20 gm 11/10/17 21:00 11/10/17 21:31 Enulose PO 11/11/17 12:00 20 gm Q4 PRN Administration Constipation Propranolol HCl 10 mg 11/09/17 10:00 11/11/17 09:29 Inderal PO Not Given BID [facility] Past Psychiatric History - Past Psychiatric History Previous Treatment History: Inpatient Pertinent Medical Hx (Current Medical&Sleep Prob, Allergies): Allergies Allergy/AdvReac Type Severity Reaction Status Date / Time No Known Allergies Allergy Verified 11/02/12 01:25 Bisacodyl [Dulcolax] 5 mg PO BID PRN 09/16/17 Clozapine [Clozapine Odt] 100 mg PO BID 09/16/17 Folic Acid 1 mg PO DAILY 09/16/17 Linaclotide [Linzess] 145 mcg PO DAILY 09/16/17 Multivitamin [Multivitamins] 1 each PO DAILY 09/16/17 Propranolol HCl 10 mg PO BID 09/16/17 amLODIPine [Norvasc] 5 mg PO DAILY 09/16/17 Acetaminophen [Tylenol 325mg tab] 650 mg PO Q8 PRN tab 09/21/17 Aspirin 325 mg PO DAILY tab 09/21/17 Rosuvastatin Calcium [Crestor] 10 mg PO HS tab 09/21/17 Thiamine HCl [B-1] 100 mg PO DAILY #30 tablet 09/21/17 Ranitidine HCl [Sunmark Acid Roller] 150 mg PO BID 11/08/17 Tiotropium [place] Inhaler [Spiriva Inhalation Handihaler Device] 1 inhaler INH DAILY 11/08/17 Review of Systems - Review of Systems All systems: reviewed and no additional remarkable complaints except - Psychiatric Psychiatric: As Per HPI, Anxiety. absent: Abnormal Sleep Pattern, Anhedonia, Auditory Hallucinations, Change in Appetite, Depression, Difficulty Concentrating, Hallucinations, Homicidal Ideation, Irritability, Panic Attacks, Paranoia, Suicidal Ideation, Visual Hallucinations, Tactile Hallucinations Mental Status Examination - Personal Presentation Personal Presentation: Looks stated age - Affect Affect: Broad - Motor Activity Motor Activity: Calm - Reliability in Providing Information Reliability in Providing Information: Good - Speech Speech: Organized - Mood Mood: Neutral - Formal Thought Process Formal Thought Process: No Impairment - Obsessions/Compulsions Obsessions: No Compulsions: No - Cognitive Functions Orientation: Person, Place, Situation, Time Sensorium: Alert Attention/Concentration: Attentive Abstract Thinking: [place] Estimate of Intelligence: Below average Judgement: Intact, as evidence by: Good judgement, Intact, as evidence by: Insight regarding need for hospitalization - Strength & Assets Inventory Strength & Assets Inventory: Other (prison) DSM 5 DX - DSM 5 DSM 5 Diagnosis: Schizophrenia paranoid type continuous - Recommended/Plan of Treatment Treatment Recommendations and Plan of Treatment: Schizophrenia paranoid type continuous Continue Clozapine As need medications All risks, benefits and alternatives of the meds discussed, and the pt agreed and understood. Attend groups and activities Individual therapy daily Psychoeducation and support daily Encourage compliance with meds and after care Refer to outpatient program Teach healthy lifestyle methods, i.e. diet, exercise, meditation Smoking cessation and patch if needed
[2017-11-11 11:30] LABS: BASO % 0.5 % (0.0-2.0); EOS # 0.1 K/uL (0.0-0.7); EOS % 1.1 % (0.0-4.0); LYMPH # 1.8 K/uL (1.0-4.3); LYMPH % 25.9 % (20.0-40.0); MEAN CELL VOLUME 87.9 fL (80.0-94.0); MEAN CORPUSCULAR HEMOGLOBIN 29.9 pg (27.0-31.0); MEAN CORPUSCULAR HGB CONC 34.1 g/dL (33.0-37.0); MEAN PLATELET VOLUME 8.1 fL (7.2-11.7); MONO # 0.7 K/uL (0.0-0.8); MONO % 9.9 % (0.0-10.0); NEUT # 4.4 K/uL (1.8-7.0); NEUT % 62.6 % (50.0-75.0); RBC 3.35 Mil/uL (4.40-5.90); RED CELL DISTRIBUTION WIDTH 15.5 % (11.5-14.5)
[2017-11-11 12:03] LABS: ALB/GLOB RATIO 1.4 (1.0-2.1); ALBUMIN 3.4 g/dL (3.5-5.0); ALT/SGPT 18 U/L (21-72); AST/SGOT 14 U/L (17-59); BLOOD UREA NITROGEN 3 mg/dL (9-20); CALCIUM 8.2 mg/dl (8.6-10.4); GFR NON-AFRICAN AMERICAN > 60
--- NOTE | 2017-11-11 12:28 | CP.PCM.PN ---
Subjective - Date & Time of Evaluation Date of Evaluation: 11/11/17 Time of Evaluation: 12:24 - Subjective Subjective: PATIENT WAS ADMITTED FOR SBO AND CONSTIPATION AAOX3 / DENIES CHEST PAIN / ABDOMINAL PAIN / NAUSEA OR VOMITING NO SIGN OF DISTRESS NOTED Objective - Vital Signs/Intake and Output Vital Signs (last 24 hours): Temp Pulse Resp BP Pulse Ox 98.2 F 87 20 92/56 L 98 11/11/17 08:06 11/11/17 09:28 11/11/17 08:06 11/11/17 09:28 11/11/17 10:05 Intake and Output: 11/11/17 11/11/17 06:59 18:59 Intake Total 240 Balance 240 - Medications Medications: Current Medications Docusate Sodium (Colace) 100 mg PO TID [facility] Last Admin: 11/11/17 09:29 Dose: 100 mg Home Med (Clozapine [Clozapine Odt]) 100 mg PO BID CATHERINE Propranolol HCl (Inderal) 10 mg PO BID [facility] Last Admin: 11/11/17 09:29 Dose: Not Given - Labs Labs: 11/11/17 11:25 11/11/17 11:25 Assessment and Plan - Assessment and Plan (Free Text) Assessment: PATIENT SEEN AND EXAMINED AT THE BEDSIDE ABD CT DONE SHOW NO SIGN OF SBO / SEVERE CONSTIPATION PATIENT HAD MULTI BOWEL MOVEMENT AND LACTULOSE ADDED IN HIS MED FOR CONSTIPATION ROSSI REMOVE / PATIENT CONTINUE TO VOID DISCUSS WITH DR MCNALLY WHO AGREE AND CLEAR FOR DC FOLLOW UP WITH DR MCNALLY IN HIS OFFICE 1-2 WEEKS ---CALL FOR APPOINTMENT FOLLOW UP WITH DR KIM IN HIS OFFICE ---CALL FOR APPOINTMENT CONTINUE HOME MEDICATION NEW PRESCRIPTION GIVEN LACTULOSE PO BID FOR CONSTIPATION ACTIVITY TOLERATED ROSSI REMOVE/ ASSESS FOR RETENTION/ ENCOURAGE VOIDING TRIAL CALL DR MCNALLY OR GO TO THE EMERGENCY ROOM IF SYMPTOMS RETURN OR WORSENING DISCUSS WITH PATIENT WHO AGREE AND VERBALIZED UNDERSTANDING
--- NOTE | 2017-11-13 03:11 | DS ---
This is a late entry for discharge done on 11/11/2017. REASON FOR ADMISSION: This is a 57-year-old male who lives in a half-way, and he has a longstanding history of schizophrenia, was admitted for abdominal pain secondary to possible obstruction. COURSE OF HOSPITALIZATION: The patient was admitted to medical floor, and he had a CAT scan done that showed some dilated small bowel loops and possible stool impaction. The patient had a surgical consultation done by Dr. Judd. The patient was treated conservatively. He was given laxatives and the patient moved his bowel. During this hospitalization also, the patient had urinary retention, likely secondary to the stool impaction. The patient was able to urinate as well as he moved his bowels twice during this hospitalization. He was discharged free of abdominal pain. To be followed as an outpatient and to continue his preadmission medications. FINAL DIAGNOSES: 1. Small bowel obstruction with ileus secondary to stool impaction that was treated conservatively. 2. History of hypercholesterolemia. 3. Chronic obstructive pulmonary disease. 4. Smoker. 5. Hypertension. Akil Cunningham MD [facility] # [id number]
== END 2017-11-11 16:00 | disposition home or self-care (01) | DRG 389 ==
LOC: C.ER 13:54 → C.9E 18:57 → C.5S 11-09 12:30
PROVIDERS: ADMIT Internal Medicine; ATTEND Internal Medicine
DX: K56.699 Other intestinal obstruction unspecified as to partial versus complete obstruction (principal); K59.39 Other megacolon; K56.41 Fecal impaction; N18.9 Chronic kidney disease, unspecified; E78.00 Pure hypercholesterolemia, unspecified; F20.9 Schizophrenia, unspecified; I12.9 Hypertensive chronic kidney disease with stage 1 through stage 4 chronic kidney disease, or unspecified chronic kidney disease; J44.9 Chronic obstructive pulmonary disease, unspecified; R62.50 Unspecified lack of expected normal physiological development in childhood; R33.9 Retention of urine, unspecified; D63.8 Anemia in other chronic diseases classified elsewhere; Z86.19 Personal history of other infectious and parasitic diseases; F17.210 Nicotine dependence, cigarettes, uncomplicated

== ENCOUNTER 2018-03-07 09:17 | Outpatient (CLI) | payer MEDICARE, MEDICAID | END 2018-03-07 09:18 | disposition home or self-care (01) | LOC: C.USIC 09:17 ==

== ENCOUNTER 2018-03-22 11:17 | Inpatient (IN) | payer MEDICARE, MEDICAID ==
[2018-03-22] MEDS ORDERED: Sodium Chloride 0.9% 1,000 ML IV ONE (11:36)
[2018-03-22 12:02] LABS: BASO % 0.3 % (0.0-2.0); EOS % 0.4 % (0.0-4.0); LYMPH % 16.4 % (20.0-40.0); MEAN CELL VOLUME 89.4 fL (80.0-94.0); MEAN CORPUSCULAR HEMOGLOBIN 28.9 pg (27.0-31.0); MEAN CORPUSCULAR HGB CONC 32.3 g/dL (33.0-37.0); MEAN PLATELET VOLUME 9.2 fL (7.2-11.7); MONO # 0.7 K/uL (0.0-0.8); MONO % 10.2 % (0.0-10.0); NEUT # 4.6 K/uL (1.8-7.0); NEUT % 72.7 % (50.0-75.0); RBC 4.77 Mil/uL (4.40-5.90); RED CELL DISTRIBUTION WIDTH 15.7 % (11.5-14.5); WHITE BLOOD COUNT 6.4 K/uL (4.8-10.8)
[2018-03-22 12:03] LABS: HEMOGLOBIN 13.8 g/dL (12.0-18.0)
[2018-03-22 12:16] LABS: ALB/GLOB RATIO 1.5 (1.0-2.1); ALBUMIN 4.5 g/dL (3.5-5.0); ALT/SGPT 27 U/L (21-72); AST/SGOT 32 U/L (17-59); BLOOD UREA NITROGEN 13 mg/dL (9-20); CALCIUM 8.6 mg/dl (8.6-10.4); GFR NON-AFRICAN AMERICAN > 60; LIPASE 29 U/L (23-300)
--- NOTE | 2018-03-22 12:25 | C.PDOC ---
History Of Present Illness 57 y/o male [facility] for evaluation of abdominal distention and constipation which has been present for the past 2 days. Patient denies having fever and chills. Of note, patient began vomiting in ER during evaluation. Time Seen by Provider: 03/22/18 11:24 Chief Complaint (Nursing): Abdominal Pain History Per: Patient History/Exam Limitations: no limitations Onset/Duration Of Symptoms: Days Current Symptoms Are (Timing): Still Present Severity: Moderate Past Medical History Reviewed: Historical Data, Nursing Documentation, Vital Signs Vital Signs: Last Vital Signs Temp 98.5 F 03/22/18 11:30 Pulse 93 H 03/22/18 11:30 Resp 18 03/22/18 11:30 BP 135/88 03/22/18 11:30 Pulse Ox 99 03/22/18 11:30 - Medical History PMH: Anxiety, Asthma, Bronchitis, Depression, Hepatitis, HTN, Schizophrenia Denies: Chronic Kidney Disease Surgical History: No Surg Hx - [facility] Procedures CLOSED ENDOSCOPIC BIOPSY OF LARGE INTESTINE (07/11/14) ESOPHAGOGASTRODUODENOSCOPY [EGD] W/CLOSED BIOPSY (11/01/12) LARYGNOSCOPY AND OTH TRACHEOSCOPY (11/01/12) VACCINATION NEC (11/01/12) Family History: States: No Known Family Hx - Social History Hx Tobacco Use: Yes Hx Alcohol Use: No Hx Substance Use: No Review Of Systems Except As Marked, All Systems Reviewed And Found Negative. Constitutional: Negative for: Fever, Chills Gastrointestinal: Positive for: Vomiting, Abdominal Pain, Constipation. Negative for: Diarrhea Genitourinary: Negative for: Dysuria, Hematuria Physical Exam - Physical Exam Appears: Non-toxic, No Acute Distress Skin: Normal Color, Warm, Dry Head: Atraumatic, Normacephalic Eye(s): bilateral: Normal Inspection Nose: Normal Oral Mucosa: Moist Neck: Supple Chest: Symmetrical Cardiovascular: Rhythm Regular Respiratory: Normal Breath Sounds, No Rales, No Rhonchi, No Wheezing Gastrointestinal/Abdominal: Soft, Tenderness (mild diffuse tenderness), Distention, No Guarding, No Rebound Neurological/Psych: Oriented x3, Normal Speech ED Course And Treatment - Laboratory Results Result Diagrams: 03/22/18 11:58 03/22/18 11:58 Lab Results: Total Bilirubin 0.5 mg/dL (0.2-1.3) 03/22/18 11:58 AST 32 U/L (17-59) 03/22/18 11:58 ALT 27 U/L (21-72) 03/22/18 11:58 Alkaline Phosphatase 102 U/L (38-126) 03/22/18 11:58 Total Protein 7.5 g/dL (6.3-8.3) 03/22/18 11:58 Albumin 4.5 g/dL (3.5-5.0) 03/22/18 11:58 Globulin 3.0 gm/dL (2.2-3.9) 03/22/18 11:58 Albumin/Globulin Ratio 1.5 (1.0-2.1) 03/22/18 11:58 Lipase 29 U/L (23-300) 03/22/18 11:58 Lab Interpretation: Normal ECG: Interpreted By Me ECG Rhythm: Sinus Rhythm, Nonspecific Changes ECG Interpretation: No Acute Changes Rate From EC O2 Sat by Pulse Oximetry: 99 (RA) Pulse Ox Interpretation: Normal - Other Rad No standard instances X-Ray: Viewed By Me, Read By Radiologist Interpretation: FINDINGS: LOWER THORAX: Trace bilateral basilar dependent atelectasis identified. No pleural or pericardial effusion. LIVER: Stable small lucency is again seen at the medial left lobe liver not appearing significantly changed in size in this un enhanced CT. An apparent benign cyst remains at the supero-anterior margins of the dome of the liver abutting it, not significantly changed in size. GALLBLADDER AND BILE DUCTS: Unremarkable. PANCREAS: A mildly atrophic pancreas appears stable. SPLEEN: Unremarkable. ADRENALS: Unremarkable. No mass. KIDNEYS AND URETERS: Unremarkable. No hydronephrosis. No solid mass. VASCULATURE: Nonaneurysmal abdominal aortic calcific atherosclerotic changes are identified. BOWEL: Stomach is partially collapsed and poorly evaluated. Large bowel loops again appear distended with retained fecal material testing potential motility disorder. However, small bowel loops appear quite dilated diffusely excluding as solitary bowel loop which appears to be the terminal ileum involved in an apparent volvulus of the central mesentery, best seen in images 100 through 122. Small bowel appears to be distended up to 4.1 cm greatest diameter. Diffusely distended large bowel is again appreciated with retained fecal material and gas once again, not significantly changed in appearance overall in the interval compared prior CT 11/08/2017. Consider potential motility disorder. APPENDIX: Retrocecal nonacut e appendix. PERITONEUM: Trace ascites seen at the mid to inferior bilateral pericolic gutters and minimally in the dependent pelvis. No free intra peritoneal gas collection identified. LYMPH NODES: No grossly enlarged lymph nodes are appreciable. BLADDER: Urinary bladder is nearly completely d ecompressed and limited in evaluation. REPRODUCTIVE: Unremarkable. BONES: No acute fracture. OTHER FINDINGS: None. IMPRESSION: 1. A distal small bowel obstruction is identified due to an apparent central mesenteric volvulus with limited abdominal and pelvic ascites identified. No free intra peritoneal gas collection. 2. Distended colon is again appreciated with retained fecal material and gas once again, not significantly changed in appearance overall in the interval compared prior CT 11/08/2017. Consider potential motility disorder. 3. Stable lucency left lobe liver. Progress Note: Treated with IVF NSS and zofran. Case discussed with business services vice president who evaluated patient and noted Dr justice operated on patient in past. Dr Cunningham contacted and request surgical consult with Dr justice. Case discussed with Dr justice who will evaluate patient today. #16 NG tube inserted inb right nare draininbg large anounts of brownish fluid Reassessment Condition: Improved - Physician Consult Information Physician Contacted: Akil Cunningham Outcome Of Conversation: admit Medical Decision Making Medical Decision Making: Plan: --Labs --UA --CT -Abd & Pelv. --IV Fluids --Zofran IV Disposition Discussed With Dr.: Akil Cunningham Doctor Will See Patient In The: Hospital - Disposition Disposition: HOSPITALIZED Disposition Time: 16:00 Condition: STABLE - POA Present On Arrival: None - Clinical Impression Clinical Impression: Vomiting, Constipation, Small bowel obstruction - PA / ARCHITECTURAL TECHNICIAN / Resident Statement MD/DO has reviewed & agrees with the documentation as recorded. - Scribe Statement The provider has reviewed the documentation as recorded by the Heatheribe Paty Magallanes Provider Attestation All medical record entries made by the Scribe were at my direction and personally dictated by me. I have reviewed the chart and agree that the record accurately reflects my personal performance of the history, physical exam, medical decision making, and the department course for this patient. I have also personally directed, reviewed, and agree with the discharge instructions and disposition. Decision To Admit - Pt Status Changed To: Hospital Disposition Of: Inpatient - Admit Certification Admit to Inpatient:: After my assessment, the patient will require hospitalization for at least two midnights. This is because of the severity of symptoms shown, intensity of services needed, and/or the medical risk in this patient being treated as an outpatient. - InPatient: Physician Admission Certification:: SBO. volvulus - . Bed Request Type: Regular Patient Diagnosis: Vomiting, Constipation, Small bowel obstruction
--- NOTE | 2018-03-22 13:43 | CT ---
Date of service: 03/22/2018 PROCEDURE: CT Abdomen and Pelvis without intravenous contrast HISTORY: Pain COMPARISON: Abdomen and pelvis CT with contrast 11/08/2017. TECHNIQUE: Helical CT of the abdomen and pelvis was performed without oral or intravenous contrast as per referring physician request. Coronal and sagittal reformats were generated. Contrast dose: None Radiation dose: Total exam DLP = 382.58 mGy-cm. This CT exam was performed using one or more of the following dose reduction techniques: Automated exposure control, adjustment of the mA and/or kV according to patient size, and/or use of iterative reconstruction technique. FINDINGS: LOWER THORAX: Trace bilateral basilar dependent atelectasis identified. No pleural or pericardial effusion. LIVER: Stable small lucency is again seen at the medial left lobe liver not appearing significantly changed in size in this un enhanced CT. An apparent benign cyst remains at the supero-anterior margins of the dome of the liver abutting it, not significantly changed in size. GALLBLADDER AND BILE DUCTS: Unremarkable. PANCREAS: A mildly atrophic pancreas appears stable. SPLEEN: Unremarkable. ADRENALS: Unremarkable. No mass. KIDNEYS AND URETERS: Unremarkable. No hydronephrosis. No solid mass. VASCULATURE: Nonaneurysmal abdominal aortic calcific atherosclerotic changes are identified. BOWEL: Stomach is partially collapsed and poorly evaluated. Large bowel loops again appear distended with retained fecal material testing potential motility disorder. However, small bowel loops appear quite dilated diffusely excluding as solitary bowel loop which appears to be the terminal ileum involved in an apparent volvulus of the central mesentery, best seen in images 100 through 122. Small bowel appears to be distended up to 4.1 cm greatest diameter. Diffusely distended large bowel is again appreciated with retained fecal material and gas once again, not significantly changed in appearance overall in the interval compared prior CT 11/08/2017. Consider potential motility disorder. APPENDIX: Retrocecal nonacute appendix. PERITONEUM: Trace ascites seen at the mid to inferior bilateral pericolic gutters and minimally in the dependent pelvis. No free intra peritoneal gas collection identified. LYMPH NODES: No grossly enlarged lymph nodes are appreciable. BLADDER: Urinary bladder is nearly completely decompressed and limited in evaluation. REPRODUCTIVE: Unremarkable. BONES: No acute fracture. OTHER FINDINGS: None. IMPRESSION: 1. A distal small bowel obstruction is identified due to an apparent central mesenteric volvulus with limited abdominal and pelvic ascites identified. No free intra peritoneal gas collection. 2. Distended colon is again appreciated with retained fecal material and gas once again, not significantly changed in appearance overall in the interval compared prior CT 11/08/2017. Consider potential motility disorder. 3. Stable lucency left lobe liver. Findings discussed with Dr. Rajan with written down and read back verification, 03/22/2018, 1:20 p.m..
[2018-03-22] MEDS: Potassium Ch 20mEq in D5-1/2NS 1,000 ML IV SCH (20:00)
[2018-03-22 22:32] LABS: SQUAMOUS EPITHIAL < 1 /hpf (0-5); URINE BILIRUBIN NEGATIVE (NEGATIVE); URINE BLOOD NEGATIVE (NEGATIVE); URINE CLARITY Clear (Clear); URINE COLOR Amber (YELLOW); URINE GLUCOSE (UA) NORMAL (Normal); URINE LEUKOCYTE ESTERASE NEG Leu/uL (Negative); URINE PROTEIN 1+ mg/dL (NEGATIVE)
[2018-03-23] MEDS: Potassium Ch 20mEq in D5-1/2NS 1,000 ML IV SCH ×3 (08:43→17:57)
[2018-03-23] MEDS ORDERED: Potassium Ch 20mEq in D5-1/2NS 1,000 ML IV SCH (10:45)
--- NOTE | 2018-03-23 11:19 | CARD ---
APPROVED REPORT Date of service: 03/22/2018 EKG Measurement Heart [id number] <Conclusion> Normal sinus rhythm Minimal voltage criteria for LVH, may be normal variant Nonspecific T wave abnormality Prolonged QT Abnormal ECG
--- NOTE | 2018-03-23 13:10 | CON ---
DATE: 03/22/2018 REASON FOR CONSULTATION: Small bowel volvulus. HISTORY OF PRESENT ILLNESS: This is a 57-year-old male, who is status post an open renal resection, transabdominal, who three weeks ago presented with symptoms of a small bowel obstruction, which resolved without surgery with NG tube suction and IV hydration. He was fine until, a couple of days ago, developed nausea and vomiting and came back to the hospital. A recent CT shows dilated colon with retained stool with also dilated small bowel of 4 cm. There was also an area of the ileum consistent with a possible small bowel volvulus. He is now seen in surgical consultation. PAST MEDICAL HISTORY: hypertension. PAST SURGICAL HISTORY: As noted above. FAMILY HISTORY: Noncontributory. REVIEW OF SYSTEMS: Noncontributory. PHYSICAL EXAMINATION: GENERAL: He is a well-developed black male, in no acute distress. VITAL SIGNS: Temperature is 97.8, pulse is 100, BP is 109/69, respiratory rate is 20 and his O2 saturation is 96% on room air. ABDOMEN: Attention to the abdominal examination revealed a slightly distended abdomen, soft and nontender. There is a well-healed midline scar. There were no palpable masses. Remainder of the physical exam was unremarkable. LABORATORY DATA: His admission laboratories revealed a white blood cell count of 6.4, hemoglobin and hematocrit of 13.8 and 42.7 and electrolytes were all within normal limits. ASSESSMENT AND PLAN: Due to the lack of fever, leukocytosis and abdominal tenderness, a small bowel volvulus is highly unlikely. The CT is more consistent with a colonic motility dysfunction, which has now caused a functional obstruction proximally. He should remain with an NG tube and be well hydrated. He will also have a GI consult for motility disorder. If his condition changes or he develops abdominal pain, fever, or leukocytosis, surgery will be considered. Christopher Judd MD
--- NOTE | 2018-03-23 13:53 | CP.PCM.CON ---
History of Present Illness - History of Present Illness History of Present Illness: GI Fellow PGY4, Consult note. Zion Chan is a 57M presenting from a long term with abdominal distension and constipation. Vomiting in ED. SBO 3 weeks ago. Patient is a poor source of history and refers to abdominal pain as "the sickness". He states he is feeling significantly better after the NG tube placed. He states he does not feel constipated most days or has to push excessively during BMs. Admits to taking laxatives at home, but does not know the medication. Linzess and PRN dulcolax is on his home med list. He had a small, brown BM today. CT scan reviewed. Report small bowel volvulus. Retained fecal material. He was evaluated by surgery, doubt small bowel volvulus given lack of fever, leukocytosis, abdominal pain. His impression is a motility disorder causing a functional obstruction. PMHx - SBO 3 weeks ago. PSHx - Nephrectomy. Colonoscopy 2014. FMHx - Unknown to patient SocHx - Smokes 3 cigs per day. Previous alcohol abuse. 12pt ROS completed and negative except for above. Past Patient History - Past Medical History & Family History Past Medical History?: Yes - Past Social History Smoking Status: Current Some Days Smoker - CARDIAC Hx Hypertension: Yes - PULMONARY Hx Asthma: Yes Hx Bronchitis: Yes - NEUROLOGICAL Hx Neurological Disorder: Yes Other/Comment: MENTAL RETARDATION - HEENT Hx HEENT Problems: No - RENAL Hx Chronic Kidney Disease: No - ENDOCRINE/METABOLIC Hx Endocrine Disorders: No - HEMATOLOGICAL/ONCOLOGICAL Hx Blood Disorders: No - INTEGUMENTARY Hx Dermatological Problems: No - MUSCULOSKELETAL/RHEUMATOLOGICAL Hx Musculoskeletal Disorders: No Hx Falls: No - GASTROINTESTINAL Hx Gastrointestinal Disorders: Yes Hx Constipation: Yes Hx Gastroesophageal Reflux: Yes Other/Comment: fecal impaction - GENITOURINARY/GYNECOLOGICAL Hx Genitourinary Disorders: No - PSYCHIATRIC Hx Anxiety: Yes Hx Depression: Yes Hx Schizophrenia: Yes Hx Substance Use: No - SURGICAL HISTORY Hx Surgeries: No Other/Comment: Abdomen with surgical scar but pt cannot recall that he had surgery - ANESTHESIA Hx Anesthesia: Yes Hx Anesthesia Reactions: No Meds Allergies/Adverse Reactions: Allergies Allergy/AdvReac Type Severity Reaction Status Date / Time No Known Allergies Allergy Verified 03/22/18 11:35 - Medications Medications: Current Medications Potassium Chloride/Dextrose/Sod Cl (Potassium Chl 20 Meq In D5-1/2ns) 1,000 mls @ 150 mls/hr IV .Q6H40M [facility] Last Admin: 03/23/18 11:38 Dose: 150 mls/hr Influenza Virus Vaccine (Flucelvax Quad [id number] Syr) 60 mcg IM .ONCE ONE Stop: 03/25/18 10:01 Ondansetron HCl (Zofran Inj) 4 mg IVP Q8H PRN PRN Reason: Nausea/Vomiting Pantoprazole Sodium (Protonix Inj) 40 mg IVP DAILY [facility] Last Admin: 03/23/18 09:22 Dose: 40 mg Pneumococcal Polyvalent Vaccine (Pneumovax 23 Vaccine) 0.5 ml IM .ONCE ONE Stop: 03/25/18 10:01 Physical Exam - Constitutional Appears: Non-toxic, No Acute Distress - Head Exam Head Exam: ATRAUMATIC, NORMAL INSPECTION - Eye Exam Eye Exam: EOMI, Normal appearance - ENT Exam ENT Exam: Mucous Membranes Moist, Normal Exam - Respiratory Exam Respiratory Exam: Clear to Auscultation Bilateral, NORMAL BREATHING PATTERN - Cardiovascular Exam Cardiovascular Exam: REGULAR RHYTHM, +S1, +S2 - GI/Abdominal Exam GI & Abdominal Exam: Normal Bowel Sounds, Soft. absent: Distended, Guarding, Tenderness Additional comments: well healed vertical scar ~10cm long - Extremities Exam Extremities exam: Positive for: normal inspection. Negative for: pedal edema - Neurological Exam Neurological exam: Alert, Oriented x3 - Psychiatric Exam Psychiatric exam: Flat Affect, Normal Mood - Skin Skin Exam: Normal Color, Warm Results - Vital Signs Recent Vital Signs: Last Vital Signs Temp 97.8 F 03/23/18 08:49 Pulse 100 H 03/23/18 08:49 Resp 20 03/23/18 08:49 BP 109/69 03/23/18 08:49 Pulse Ox 96 03/23/18 08:49 - Labs Result Diagrams: 03/23/18 13:15 03/23/18 13:15 Labs: Laboratory Results - last 24 hr 03/22/18 22:12 Urine Color Debbie Urine Clarity Clear Urine pH 5.0 Ur Specific Patton 1.028 Urine Protein 1+ H Urine Glucose (UA) Normal Urine Ketones 1+ H Urine Blood Negative Urine Nitrate Negative Urine Bilirubin Negative Urine Urobilinogen 2.0 Ur Leukocyte Esterase Neg Urine WBC (Auto) 2 Urine RBC (Auto) 2 Ur Squamous Epith Cells < 1 Assessment & Plan - Assessment and Plan (Free Text) Assessment: #Chronic idiopathic constipation PLAN: -CSPY 2014 - IH, anal fissure, retained stool -Home Linzess, PRN dulcolax -Currently has NG tube, feeling much better. He had BM this afternoon. Minimal pain or abdominal distension at this time. -Motility disorder can be assessed with outpatient testing. -Tap water enema -Start PO laxatives when off NG tube, defer to surgeon. -Agree with NPO at this time. Defer diet to surgery at this time. Avoid tough, chewy foods. Case discussed with Dr. Maravilla, see attestation. - Date & Time Date: 03/23/18 Time: 16:42
[2018-03-23 14:02] LABS: BASO % 0.4 % (0.0-2.0); EOS % 0.9 % (0.0-4.0); LYMPH # 1.5 K/uL (1.0-4.3); LYMPH % 27.6 % (20.0-40.0); MEAN CELL VOLUME 88.6 fL (80.0-94.0); MEAN CORPUSCULAR HEMOGLOBIN 28.7 pg (27.0-31.0); MEAN CORPUSCULAR HGB CONC 32.4 g/dL (33.0-37.0); MEAN PLATELET VOLUME 8.9 fL (7.2-11.7); MONO # 0.8 K/uL (0.0-0.8); MONO % 15.2 % (0.0-10.0); NEUT # 3.1 K/uL (1.8-7.0); NEUT % 55.9 % (50.0-75.0); NRBC % 0.1 % (0.0-2.0); RBC 4.06 Mil/uL (4.40-5.90); RED CELL DISTRIBUTION WIDTH 15.3 % (11.5-14.5); WHITE BLOOD COUNT 5.5 K/uL (4.8-10.8)
[2018-03-23 14:08] LABS: HEMOGLOBIN 11.7 g/dL (12.0-18.0)
[2018-03-23 14:29] LABS: ALB/GLOB RATIO 1.2 (1.0-2.1); ALBUMIN 3.1 g/dL (3.5-5.0); ALT/SGPT 25 U/L (21-72); AST/SGOT 24 U/L (17-59); BLOOD UREA NITROGEN 10 mg/dL (9-20); CALCIUM 7.3 mg/dl (8.6-10.4); GFR NON-AFRICAN AMERICAN > 60
--- NOTE | 2018-03-23 23:49 | HP ---
HISTORY OF PRESENT ILLNESS: This is a 57-year-old male, with longstanding psychiatric history, lives in a senior living, presented to emergency room with abdominal distention and constipation and vomiting. The patient also states that he has been having nausea and shortness of breath. The patient is a poor historian. The patient states also that he feels better after insertion of the nasogastric tube. The patient has been complaining of constipation most of these days and he is taking mineral oil as a laxative as well as Dulcolax. A CAT scan was done in the emergency room and it showed small bowel volvulus and retained fecal matter. The patient was admitted for further management for both surgical and GI evaluation and insertion of the nasogastric tube. REVIEW OF SYSTEMS: Other review of system is negative. ALLERGIES: NO KNOWN ALLERGY. MEDICATIONS: Reviewed and ordered as per MAR. SOCIAL HISTORY: Positive smoker. No EtOH or substance abuse. FAMILY HISTORY: Not contributory. PAST MEDICAL HISTORY: Hypertension, hypercholesterolemia, COPD. PHYSICAL EXAMINATION: GENERAL: The patient is in bed, not in any cardiopulmonary distress, has a nasogastric tube connected to low intermittent suction. VITAL SIGNS: Blood pressure is 109/69, temperature 97.8, respiratory rate 20 and pulse 100. HEENT: Pupils equal, reactive to light. Normal-appearing mucosa of the conjunctivae, oropharynx and nasal membrane mucosa. NECK: Supple. No JVD. No carotid bruit. No lymph node. No thyromegaly. CHEST AND LUNGS: Bilateral symmetrical expansion. Good air exchange. No rales, no rhonchi. CARDIOVASCULAR SYSTEM: PMI not localized. S1, S2. No additional sounds. ABDOMEN: Normoactive bowel sounds. No tenderness. No organomegaly. No masses. EXTREMITIES: No cyanosis, no clubbing, no edema. 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 LABORATORY DATA: Again CAT scan showed volvulus with fecal impaction. ASSESSMENT: 1. A 57-year-old male with history of chronic constipation, presented with a picture of most likely functional obstruction secondary to stool impaction, less likely to be volvulus given the lack of abdominal tenderness or abdominal pain, leukocytosis or fever. 2. History of hypertension. 3. Longstanding psychiatric history. PLAN: GI consult and surgical consult and follow the recommendations. Continue the [facility]ogastric tube with low intermittent suction. [facility] MD [facility] # [id number]
[2018-03-24] MEDS: Potassium Ch 20mEq in D5-1/2NS 1,000 ML IV SCH ×5 (06:13→22:32)
[2018-03-24 08:19] LABS: BASO % 0.7 % (0.0-2.0); EOS # 0.1 K/uL (0.0-0.7); HEMOGLOBIN 12.2 g/dL (12.0-18.0); LYMPH # 1.4 K/uL (1.0-4.3); LYMPH % 26.4 % (20.0-40.0); MEAN CELL VOLUME 88.6 fL (80.0-94.0); MEAN CORPUSCULAR HEMOGLOBIN 28.5 pg (27.0-31.0); MEAN CORPUSCULAR HGB CONC 32.2 g/dL (33.0-37.0); MEAN PLATELET VOLUME 8.8 fL (7.2-11.7); MONO # 0.7 K/uL (0.0-0.8); MONO % 13.7 % (0.0-10.0); NEUT % 57.2 % (50.0-75.0); RBC 4.3 Mil/uL (4.40-5.90); RED CELL DISTRIBUTION WIDTH 15.4 % (11.5-14.5); WHITE BLOOD COUNT 5.3 K/uL (4.8-10.8)
[2018-03-24 08:34] LABS: BLOOD UREA NITROGEN 6 mg/dL (9-20); CALCIUM 7.6 mg/dl (8.6-10.4); GFR NON-AFRICAN AMERICAN > 60
--- NOTE | 2018-03-24 14:33 | CP.PCM.PN ---
Subjective - Date & Time of Evaluation Date of Evaluation: 03/24/18 Time of Evaluation: 14:31 - Subjective Subjective: Patient doing well. NG tube out. Tolerating CLD. Objective - Vital Signs/Intake and Output Vital Signs (last 24 hours): Temp Pulse Resp BP Pulse Ox 98.2 F 71 20 124/78 96 03/24/18 07:52 03/24/18 07:52 03/24/18 07:52 03/24/18 07:52 03/24/18 07:52 Intake and Output: 03/24/18 03/24/18 06:59 18:59 Intake Total 2350 Output Total 2300 Balance 50 - Medications Medications: Current Medications Potassium Chloride/Dextrose/Sod Cl (Potassium Chl 20 Meq In D5-1/2ns) 1,000 mls @ 150 mls/hr IV .Q6H40M [facility] Last Admin: 03/24/18 13:37 Dose: Not Given Influenza Virus Vaccine (Flucelvax Quad [id number] Syr) 60 mcg IM .ONCE ONE Stop: 03/25/18 10:01 Ondansetron HCl (Zofran Inj) 4 mg IVP Q8H PRN PRN Reason: Nausea/Vomiting Pantoprazole Sodium (Protonix Inj) 40 mg IVP DAILY [facility] Last Admin: 03/24/18 09:53 Dose: 40 mg Pneumococcal Polyvalent Vaccine (Pneumovax 23 Vaccine) 0.5 ml IM .ONCE ONE Stop: 03/25/18 10:01 Polyethylene Glycol (Miralax) 17 gm PO BID [facility] Senna/Docusate Sodium (Senokot S 50 Mg-8.6 Mg) 1 tab PO DAILY [facility] - Labs Labs: 03/24/18 08:13 03/24/18 08:13 - Constitutional Appears: Well, Non-toxic - Head Exam Head Exam: ATRAUMATIC, NORMOCEPHALIC - Respiratory Exam Respiratory Exam: Clear to Ausculation Bilateral, NORMAL BREATHING PATTERN - Cardiovascular Exam Cardiovascular Exam: REGULAR RHYTHM, +S1, +S2 - GI/Abdominal Exam GI & Abdominal Exam: Soft, Normal Bowel Sounds. absent: Tenderness - Neurological Exam Neurological Exam: Alert, Awake - Psychiatric Exam Psychiatric exam: Flat Affect - Skin Skin Exam: Normal Color, Warm Assessment and Plan - Assessment and Plan (Free Text) Assessment: #Chronic idiopathic constipation PLAN: -CSPY 2014 - IH, anal fissure, retained stool -Home Linzess, PRN dulcolax -Minimal pain or abdominal distension at this time. -Motility disorder can be assessed with outpatient testing. -CLD. -Start PO laxative Miralax BID. Senna-docusate daily. Case discussed with Dr. Maravilla, see attestation.
[2018-03-24] MEDS: POLYETHYLENE GLYCOL 3350 17 GM/Dose PACKET PO SCH (17:21)
[2018-03-24] MEDS ORDERED: Potassium Chloride 20 mEq/15 ml LIQ UD PO ONE (18:00)
--- NOTE | 2018-03-24 21:38 | PN ---
DATE: 03/24/2018 SUBJECTIVE: The patient is seen today, 03/24/2018. He is not in any cardiopulmonary distress. The patient moved bowel today. He still has a nasogastric tube connected to low intermittent suction. OBJECTIVE: VITAL SIGNS: Blood pressure is 138/75, temperature 98.3, respiratory rate 20, and pulse 77. HEENT: Pupils equal and reactive to light. Normal-appearing mucosa of the conjunctivae, oropharynx, and nasal membrane mucosa. NECK: Supple. No JVD. No carotid bruit. No lymph node. No thyromegaly. CHEST AND LUNGS: Bilateral symmetrical expansion. Good air exchange. No rales, no rhonchi. CARDIOVASCULAR SYSTEM: PMI not localized. S1, S2. No additional sounds. ABDOMEN: Normoactive bowel sounds. No tenderness. No organomegaly. No masses. EXTREMITIES: No cyanosis, no clubbing, no edema. CENTRAL NERVOUS SYSTEM: Awake. Moves all extremities equally, and no neurological deficit. ASSESSMENT: Functional obstruction secondary to stool impaction, history of hypertension, and smoker. PLAN: We will remove the nasogastric tube and start feeding, and advance diet as tolerated, and discharge the patient. The patient will continue to improve and tolerate diet. Akil Cunningham MD
[2018-03-25] MEDS: Potassium Ch 20mEq in D5-1/2NS 1,000 ML IV SCH ×4 (00:10→08:34)
[2018-03-25 07:57] LABS: BLOOD UREA NITROGEN 3 mg/dL (9-20); CALCIUM 7.8 mg/dl (8.6-10.4); GFR NON-AFRICAN AMERICAN > 60
[2018-03-25] MEDS: Docusate-Senna 50 mg-8.6 mg Tab PO SCH (09:40)
[2018-03-25] MEDS: POLYETHYLENE GLYCOL 3350 17 GM/Dose PACKET PO SCH ×2 (09:40→17:24)
[2018-03-25] MEDS: Magnesium Citrate Oral SOL (300 ml) PO SCH ×2 (09:42→17:23)
[2018-03-25] MEDS ORDERED: Pneumococcal 23-Valent Vaccine IM ONE (10:00)
[2018-03-25] MEDS ORDERED: Influenza Vaccine 60 mcg/0.5 mL SYR (4YR UP) IM ONE (10:00)
--- NOTE | 2018-03-25 11:49 | PN ---
DATE: 03/25/2018 LOCATION: 369, bed A SUBJECTIVE: This 57-year-old male was seen and examined in rounds, appeared to be awake and alert. Denied any abdominal pain or nausea and vomiting this morning. Somewhat tolerating oral intake with some bowel movement. No chest pain, palpitation, no shortness of breath, chills or fever. The entire chart is reviewed and the most recent lab results today showed low BUN of 3 with calcium 7.8. The patient had elevated CEA level of 6, CA 19-9 reported to be normal but with low albumin and total protein. The initial CAT scan report is seen with questionable volvulus before as well as fecal impaction. PHYSICAL EXAMINATION: GENERAL: A 57-year-old male. VITAL SIGNS: Afebrile with pulse of 70, respiratory rate 20-22, blood pressure 124/72. HEENT: Showed pale dry oral mucous membrane. Mild icteric sclerae. LUNGS: Few scattered crepitation. Decreased air entry at bases. HEART: Positive S1 and S2. ABDOMEN: Soft with mild distention. Bowel sounds are present. No mass or organomegaly. No rebound tenderness or guarding. EXTREMITIES: Without significant clubbing, cyanosis or edema. No reported new neurological deficit, sensory or motor. IMPRESSION: 1. Fecal impaction inducing picture of volvulus with questionable small bowel obstruction, released. 2. Elevated CEA level. The possibility of colon carcinoma was raised. 3. Multiple past medical history including but not limited to hypertension, schizophrenia, bronchial asthma, depression, and viral hepatitis infection as well as peptic ulcer disease. SUGGESTIONS: 1. Agree with your plan. 2. Add citrate of magnesium with tap water enema versus or retention enemas. 3. The patient will need colonoscopy after a strong preparation that to be discussed with the admitting MD due to the elevated CEA level and due to the patient's clinical presentation. 4. Further recommendation to follow. June Nguyen MD
[2018-03-25] MEDS ORDERED: Bisacodyl 5mg EC Tab PO PRN (13:50)
[2018-03-25] MEDS: CLOZAPINE 100 MG PO SCH (18:00)
[2018-03-26] MEDS ORDERED: Bisacodyl 5mg EC Tab PO ONE (07:51)
[2018-03-26] MEDS ORDERED: Home Med 1 UNIT (Linaclotide [Linzess] 145 MCG) PO SCH (10:00)
[2018-03-26] MEDS: CLOZAPINE 100 MG PO SCH (10:00)
[2018-03-26] MEDS: Docusate-Senna 50 mg-8.6 mg Tab PO SCH (10:07)
[2018-03-26] MEDS: Multiple Vitamins Tab PO SCH (10:07)
[2018-03-26] MEDS: Magnesium Citrate Oral SOL (300 ml) PO SCH ×2 (10:08→18:45)
[2018-03-26] MEDS: POLYETHYLENE GLYCOL 3350 17 GM/Dose PACKET PO SCH ×2 (10:08→18:46)
--- NOTE | 2018-03-26 10:12 | PN ---
DATE: 03/26/2018 LOCATION: 369, bed A. SUBJECTIVE: This is a 57-year-old male seen and examined in rounds early this morning without significant reported clinical changes. The entire chart is reviewed including but not limited to most recent lab results and today's lab results still pending, but reported to have elevated CEA level. On record, the patient still have period of severe constipation with mild abdominal distention. PHYSICAL EXAMINATION: GENERAL: A 57-year-old male. Denied any chest pain, palpitation or significant shortness of breath. VITAL SIGNS: Afebrile with pulse of 74, respiratory rate 18 to 20, blood pressure of 124/72. HEENT: Showed pale dry oral mucoid membrane. Nonicteric sclerae. LUNGS: Few scattered crepitation. Decreased air entry at bases. HEART: Positive S1 and S2. ABDOMEN: Soft with mild generalized tenderness. No mass or organomegaly. No rebound tenderness or guarding. EXTREMITIES: Without significant clubbing, cyanosis or edema. NEUROLOGIC: No reported new neurological deficits, sensory or motor. No reported new focal deficits. IMPRESSION: 1. Fecal impaction. 2. Abnormal CAT scan of the abdomen and pelvis. 3. Elevated CEA level to rule out occult lower gastrointestinal tract malignancy. 4. Multiple past medical history including mainly but not limited to hypertension, depression, schizophrenia, bronchial asthma, viral hepatitis infection with re-exacerbation of peptic ulcer disease. SUGGESTIONS: 1. Continue current management. 2. The patient may need endoscopic evaluation of the GI tract, lower GI tract mainly, when the patient is more stable clinically. 3. Further recommendation to follow. June Nguyen MD
--- NOTE | 2018-03-26 11:43 | PCM.PSYCH ---
Initial Psychiatric Evaluation - Initial Psychiatric Evaluation Legal Status: Capacity Chief Complaint (in patient's own words): I DON'T FEEL GOOD. Patient's Reaction to Hospitalization: I AM GLAD I AM INTHE HOSPITAL AND GETTING HELP. History of Present Illness and Precipitating Events: PT IS A 57 YR 0LD BLACK SINGLE DOMICILED UNEMPLOYED MALE WHO LIVES IN A [facility], PT HAS A DIAGNOSIS OF SCHIZOPHRENIA AND IS PRESCRIBED CLOZAPINE 100 MG PO BID. PT WAS ADMITTED FOR ABDOMINAL PAIN AND DISTENTION. .PT HAS BEEN ADMITTED PREVIOUSLY WITH THE SAME COMPLAINT ON OTHER OCCASIONS., PT STATES HE DOES NOT REMEMBER WHAT HOSPITALS HE WAS IN FOR PSYCHIATRIC REASONS. PT THINKS HE MAY HAVE BEEN AT [facility] BEFORE HE STARTED LIVING AT THE [facility]. PT DENIES ANY SUICIDE ATTEMPTS. HE STATES HIS PARENTS ARE LIVING AND HE HAZS3 BROTHERS AND 1 SISTER. HE DENIES ANY FAMILY HISTORY OF SUBSTANCE ABUSE OR PSYCHIATRIC ILLNESS PT DENIES ANY LEGAL OR HISTORY PT'S ONLY MEDICAL COMPLAINT IS CHRONIC CONSTIPATION PT WENT UP TO THE [employer] AND EARNED A GED. HE IS CURRENTLY STUDYING CHEMISTRY, HE WANTS TO EARN A DEGREE IN ACCOUNTING Current Medications: Active Medications Generic Name Dose Route Start Last Admin Trade Name Freq PRN Reason Stop Dose Admin Amlodipine Besylate 5 mg 03/26/18 10:00 03/26/18 10:07 Norvasc PO 5 mg DAILY CATHERINE Administration Aspirin 325 mg 03/26/18 10:00 03/26/18 10:07 Aspirin PO 325 mg DAILY CATHERINE Administration Bisacodyl 5 mg 03/25/18 13:50 Dulcolax PO BID PRN Constipation Famotidine 20 mg 03/25/18 18:00 03/26/18 10:07 Pepcid PO 20 mg BID CATHERINE Administration Folic Acid 1 mg 03/26/18 10:00 03/26/18 10:07 Folic Acid PO 1 mg DAILY CATHERINE Administration Home Med 100 mg 03/25/18 18:00 Clozapine [Clozapine Odt] PO BID CATHERINE Home Med 145 mcg 03/26/18 10:00 Linaclotide [Linzess] PO DAILY CATHERINE Lactulose 10 gm 03/25/18 18:00 03/26/18 10:08 Enulose PO 10 gm BID CATHERINE Administration Magnesium Citrate 120 ml 03/25/18 10:00 03/26/18 10:08 Citrate Of Mag PO 03/27/18 09:59 120 ml BID CATHERINE Administration Multivitamins 1 tab 03/26/18 10:00 03/26/18 10:07 Hexavitamin PO 1 tab DAILY CATHERINE Administration Ondansetron HCl 4 mg 03/22/18 19:30 Zofran Inj IVP Q8H PRN Nausea/Vomiting Pantoprazole Sodium 40 mg 03/23/18 10:00 03/26/18 10:08 Protonix Inj IVP 40 mg DAILY CATHERINE Administration Polyethylene Glycol 17 gm 03/24/18 18:00 03/26/18 10:08 Miralax PO 17 gm BID CATHERINE Administration Propranolol HCl 10 mg 03/25/18 18:00 03/26/18 10:07 Inderal PO 10 mg BID CATHERINE Administration Rosuvastatin Calcium 10 mg 03/25/18 22:00 03/25/18 21:55 Crestor PO 10 mg HS CATHERINE Administration Senna/Docusate Sodium 1 tab 03/25/18 10:00 03/26/18 10:07 Senokot S 50 Mg-8.6 Mg PO 1 tab DAILY CATHERINE Administration Thiamine HCl 100 mg 03/26/18 10:00 03/26/18 10:07 Vitamin B1 Tab PO 100 mg DAILY CATHERINE Administration Past Psychiatric History - Past Psychiatric History Prior Professional Help: SEE HPI Pertinent Medical Hx (Current Medical&Sleep Prob, Allergies): Allergies Allergy/AdvReac Type Severity Reaction Status Date / Time No Known Allergies Allergy Verified 03/22/18 11:35 Bisacodyl [Dulcolax] 5 mg PO BID PRN 09/16/17 Clozapine [Clozapine Odt] 100 mg PO BID 09/16/17 Folic Acid 1 mg PO DAILY 09/16/17 Linaclotide [Linzess] 145 mcg PO DAILY 09/16/17 Multivitamin [Multivitamins] 1 each PO DAILY 09/16/17 Propranolol HCl 10 mg PO BID 09/16/17 amLODIPine [Norvasc] 5 mg PO DAILY 09/16/17 Acetaminophen [Tylenol 325mg tab] 650 mg PO Q8 PRN tab 09/21/17 Aspirin 325 mg PO DAILY tab 09/21/17 Rosuvastatin Calcium [Crestor] 10 mg PO HS tab 09/21/17 Thiamine HCl [B-1] 100 mg PO DAILY #30 tablet 09/21/17 Ranitidine HCl [Acid Equities Analyst] 150 mg PO BID 11/08/17 Tiotropium [place] Inhaler [Spiriva Inhalation Handihaler Device] 1 inhaler INH DAILY 11/08/17 Lactulose 10 gm PO BID 30 Days solution 11/11/17 Influenza Vaccine 60 mcg/0.5mL [Flucelvax Quad 2920-9800 Syr] 60 mcg IM .ONCE syringe 03/25/18 Review of Systems - Review of Systems Systems not reviewed;Unavailable: Other - Constitutional Constitutional: Malaise - EENT Eyes: UNREMARKABLE Ears: UNREMARKABLE Nose/Mouth/Throat: UNREMARKABLE - Cardiovascular Cardiovascular: UNREMARKABLE - Respiratory Respiratory: UNREMARKABLE - Gastrointestinal Gastrointestinal: Constipation - Genitourinary Genitourinary: UNREMARKABLE - Reproductive: Male Reproductive:Male: UNREMARKABLE - Musculoskeletal Musculoskeletal: UNREMARKABLE - Integumentary Integumentary: UNREMARKABLE - Neurological Neurological: UNREMARKABLE - Psychiatric Psychiatric: UNREMARKABLE - Endocrine Endocrine: UNREMARKABLE - Hematologic/Lymphatic Hematologic: UNREMARKABLE Mental Status Examination - Personal Presentation Personal Presentation: Looks older than stated age - Affect Affect: Flat - Motor Activity Motor Activity: Calm - Reliability in Providing Information Reliability in Providing Information: Fair - Speech Speech: Organized - Mood Mood: Neutral - Formal Thought Process Formal Thought Process: No Impairment - Obsessions/Compulsions Obsessions: No Compulsions: No - Cognitive Functions Orientation: Person, Place, Situation, Time Sensorium: Alert Attention/Concentration: Attentive Abstract Thinking: [place] Estimate of Intelligence: Average Judgement: Intact, as evidence by: Insight regarding need for hospitalization Memory: Recent intact, as evidence by: Ability to recall events of the day, Remote impaired as evidenced by: Inability to recall sig life events - Risk Risk: Other - Strength & Assets Inventory Strength & Assets Inventory: Cooperative, Other - Limitations Limitations: Other DSM 5 DX - DSM 5 DSM 5 Diagnosis: SCHIZOPHRENIA CHRONIC RESTART CLOZAPINE - Smoking Cessation Smoking Cessation Initiated: No
--- NOTE | 2018-03-27 02:01 | PN ---
DATE: 03/25/2018 SUBJECTIVE: The patient was seen on 03/25/2018. The patient is still complaining of constipation. We advanced diet but he had one bowel movement the day prior to this visit. PHYSICAL EXAMINATION: VITAL SIGNS: Blood pressure is 129/79, temperature 98.2, respiratory rate 20, and pulse 63. HEENT: Pupils equal, reactive to light. Normal-appearing mucosa of the conjunctivae, oropharyngeal, and nasal membrane mucosa. CHEST AND LUNGS: Bilateral symmetrical expansion. Good air exchange. No rales, no rhonchi. CARDIOVASCULAR SYSTEM: PMI not localized. S1, S2. No additional sounds. ABDOMEN: Normoactive bowel sounds. No tenderness. No organomegaly, no masses. EXTREMITIES: No cyanosis, no clubbing, no edema. DIE CUTTER DIAMOND: Alert, awake, oriented x2, and no neurological deficit could be appreciated. ASSESSMENT: 1. Status post functional standard obstruction secondary to stool impaction. 2. Hypertension. 3. Smoker. 4. Chronic obstructive pulmonary disease. PLAN: Continue laxatives and advance diet as tolerated and give the patient IV fluid. Resume the patient's psychiatry medications and psych consult if it is needed. Akil Cunningham MD
[2018-03-27] MEDS: Multiple Vitamins Tab PO SCH (10:29)
[2018-03-27] MEDS: POLYETHYLENE GLYCOL 3350 17 GM/Dose PACKET PO SCH ×2 (10:33→17:03)
[2018-03-27] MEDS: Docusate-Senna 50 mg-8.6 mg Tab PO SCH (10:35)
[2018-03-27] MEDS ORDERED: Peg-Electrolyte Oral Soln 4L (Golytely) PO ONE (16:00)
[2018-03-27] MEDS ORDERED: Bisacodyl 5mg EC Tab PO ONE (18:00)
--- NOTE | 2018-03-27 23:35 | PN ---
DATE: 03/27/2018 LOCATION: 369, Bed A. SUBJECTIVE: This is a 57-year-old male, seen and examined in rounds without significant clinical changes with reported episode of mild hypotension with reported bowel movement but no chest pain, palpitation, significant complaint of shortness of breath, chills or fever. The entire chart is reviewed and the most recent lab results for today is still pending. However, as reported before the patient has elevated CEA level. Case was discussed and at length with Dr. Judd. The patient is to be scheduled for colonoscopy at a.m., also as suggested by Dr. Judd, to rule out lower GI tract occult malignancy. PHYSICAL EXAMINATION: GENERAL: A 57-year-old male, afebrile with pulse of 74, respiratory rate 20 to 22, blood pressure 104/56. HEENT: Showed pale dry oral mucoid membrane. Nonicteric sclerae. LUNGS: Few scattered crepitation. Decreased air entry at bases. HEART: Positive S1 and S2. ABDOMEN: Soft. Bowel sounds are present. No mass or organomegaly. No rebound tenderness or guarding. EXTREMITIES: Without significant clubbing, cyanosis, or edema. No reported new neurological deficits, sensory, or motor. IMPRESSION: 1. Fecal impaction with a picture of possible partial bowel obstruction. 2. Increased CEA level, anemia, to rule out occult lower gastrointestinal tract malignancy. 3. Known history of hypertension, chronic obstructive pulmonary disease, depression with schizophrenia, viral hepatitis infection with re-exacerbation of peptic ulcer disease. 4. Mild anemia by recent history. SUGGESTIONS: 1. Continue current management. 2. Schedule the patient for colonoscopy after adequate preparation. June Nguyen MD
[2018-03-28 08:38] LABS: INR 1.2; PROTHROMBIN TIME 12.7 SECONDS (9.7-12.2)
--- NOTE | 2018-03-28 08:49 | PN ---
DATE: 03/27/2018 SUBJECTIVE: The patient is seen today, 03/27/2018. He is not in any cardiopulmonary distress. The patient is being prepared for colonoscopy by Gastroenterology. PHYSICAL EXAMINATION: VITAL SIGNS: Blood pressure is 96/43, temperature 98.2, respiratory rate 20 and pulse 71. HEENT: Pupils equal, reactive to light. Normal-appearing mucosa of the conjunctivae, oropharynx and nasal membrane mucosa. NECK: Supple. No JVD. No carotid bruit. No lymph node. No thyromegaly. CHEST AND LUNGS: Bilateral symmetrical expansion. Good air exchange. No rales, no rhonchi. CARDIOVASCULAR SYSTEM: PMI not localized. S1, S2. No additional sounds. ABDOMEN: Normoactive bowel sounds. No tenderness. No organomegaly. No masses. EXTREMITIES: No cyanosis, no clubbing, no edema. SURVEILLANCE SUPERVISOR: Alert, awake, oriented x2 and no neurological deficit could be appreciated. ASSESSMENT: Functional obstruction secondary to stool impaction, hypertension, chronic obstructive pulmonary disease, smoker. PLAN: Follow GI recommendations and the patient is for preparation for colonoscopy today to have a colonoscopy in the morning. Akil Cunningham MD
[2018-03-28] MEDS: POLYETHYLENE GLYCOL 3350 17 GM/Dose PACKET PO SCH ×2 (10:17→17:10)
[2018-03-28] MEDS: Multiple Vitamins Tab PO SCH (10:17)
[2018-03-28] MEDS: Docusate-Senna 50 mg-8.6 mg Tab PO SCH (10:18)
[2018-03-28] MEDS ORDERED: Propofol 10 mg/ml Inj (20 ML) ONE (10:38)
[2018-03-28] MEDS ORDERED: Lactated Ringer's 1,000 ML IV ONE (10:50)
[2018-03-28] MEDS ORDERED: Magnesium Citrate Oral SOL (300 ml) PO ONE ×2 (11:30→13:00)
[2018-03-28] MEDS ORDERED: Bisacodyl 5mg EC Tab PO ONE (16:00)
--- NOTE | 2018-03-28 21:19 | PN ---
DATE: 03/28/2018 SUBJECTIVE: The patient is seen today on 03/28/2018. He went to a colonoscopy and he was not well prepared. The patient is a psychiatric patient and that it was very difficult to prepare him as an outpatient. PHYSICAL EXAMINATION: VITAL SIGNS: Blood pressure 113/78, temperature 97.8, respiratory rate 20 and pulse 84. HEENT: Pupils equal, reactive to light. Normal-appearing mucosa of the conjunctivae, oropharynx and nasal membrane mucosa. NECK: Supple. No JVD. No carotid bruit. No lymph node. No thyromegaly. CHEST AND LUNGS: Bilateral symmetrical expansion. Good air exchange. No rales, no rhonchi. CARDIOVASCULAR SYSTEM: PMI not localized. S1, S2. No additional sounds. ABDOMEN: Normoactive bowel sounds. No tenderness. No organomegaly. No masses. EXTREMITIES: No cyanosis, no clubbing, no edema. CREDIT CONTROLLER: Alert, awake, oriented x2. No neurological deficit could be appreciated. ASSESSMENT: Functional intestinal obstruction secondary to stool impaction, longstanding psychiatric history, chronic obstructive pulmonary disease, hypertension. PLAN: Continue the colonoscopy preparation, and the patient is scheduled for colonoscopy tomorrow. Akil Cunningham MD
[2018-03-29] MEDS ORDERED: Lactated Ringer's 1,000 ML IV ONE ×2 (12:45)
[2018-03-29] MEDS ORDERED: Propofol 10 mg/ml Inj (20 ML) ONE (12:46)
[2018-03-29] MEDS ORDERED: Lidocaine Hydrochloride 5 ML INJ ONE (12:50)
[2018-03-29] MEDS: Multiple Vitamins Tab PO SCH (13:36)
[2018-03-29] MEDS: Docusate-Senna 50 mg-8.6 mg Tab PO SCH (13:37)
[2018-03-29] MEDS: POLYETHYLENE GLYCOL 3350 17 GM/Dose PACKET PO SCH ×2 (13:37→17:48)
[2018-03-29 17:27] VITALS: BP 116/72; PULSE 61; RESP 20; TEMP 97.8; O2SAT 99
--- NOTE | 2018-03-29 17:34 | CP.PCM.PN ---
Subjective - Date & Time of Evaluation Date of Evaluation: 03/29/18 Time of Evaluation: 17:34 - Subjective Subjective: alert, awake, no complaints of pain or distress. Objective - Vital Signs/Intake and Output Vital Signs (last 24 hours): Temp Pulse Resp BP Pulse Ox 97.8 F 61 20 116/72 99 03/29/18 17:26 03/29/18 17:26 03/29/18 17:26 03/29/18 17:26 03/29/18 17:26 Intake and Output: 03/29/18 03/29/18 06:59 18:59 Intake Total 300 Balance 300 - Medications Medications: Current Medications Amlodipine Besylate (Norvasc) 5 mg PO DAILY [facility] Last Admin: 03/29/18 13:37 Dose: Not Given Aspirin (Aspirin) 325 mg PO DAILY [facility] Last Admin: 03/29/18 13:36 Dose: Not Given Bisacodyl (Dulcolax) 5 mg PO BID PRN PRN Reason: Constipation Clozapine (Clozaril) 100 mg PO BID [facility] Famotidine (Pepcid) 20 mg PO BID [facility] Last Admin: 03/29/18 13:37 Dose: Not Given Folic Acid (Folic Acid) 1 mg PO DAILY [facility] Last Admin: 03/29/18 13:36 Dose: Not Given Home Med (Linaclotide [Linzess]) 145 mcg PO DAILY [facility] Lactulose (Enulose) 10 gm PO BID [facility] Last Admin: 03/29/18 13:36 Dose: Not Given Multivitamins (Hexavitamin) 1 tab PO DAILY [facility] Last Admin: 03/29/18 13:36 Dose: Not Given Ondansetron HCl (Zofran Inj) 4 mg IVP Q8H PRN PRN Reason: Nausea/Vomiting Pantoprazole Sodium (Protonix Inj) 40 mg IVP DAILY [facility] Last Admin: 03/29/18 13:37 Dose: Not Given Polyethylene Glycol (Miralax) 17 gm PO BID [facility] Last Admin: 03/29/18 13:37 Dose: Not Given Propranolol HCl (Inderal) 10 mg PO BID [facility] Last Admin: 03/29/18 13:37 Dose: Not Given Rosuvastatin Calcium (Crestor) 10 mg PO HS [facility] Last Admin: 03/28/18 21:30 Dose: 10 mg Senna/Docusate Sodium (Senokot S 50 Mg-8.6 Mg) 1 tab PO DAILY [facility] Last Admin: 03/29/18 13:37 Dose: Not Given Thiamine HCl (Vitamin B1 Tab) 100 mg PO DAILY [facility] Last Admin: 03/29/18 13:37 Dose: Not Given - Labs Labs: 03/24/18 08:13 03/25/18 07:17 PT 12.7 SECONDS (9.7-12.2) H 03/28/18 08:19 INR 1.2 03/28/18 08:19 APTT 34 SECONDS (21-34) 03/28/18 08:19 Assessment and Plan - Assessment and Plan (Free Text) Assessment: 57 year old male admitted with SBO, volvulus, s/p colonoscopy today, seen and examined. Alert and orientedx3, denies abdominal pain or distress. Tolerated diet. Cleared by DR Maravilla for discharg today on bentyl and amitizia. Discussed with DR Cunningham , plan to discharge to the [facility] today, transportation arranged.
--- NOTE | 2018-03-30 08:23 | DS ---
REASON FOR ADMISSION: This is a 57-year-old male with history of multiple medical problems who was admitted for functional intestinal obstruction secondary to stool impaction. HOSPITAL COURSE: The patient was admitted to medical floor and he was started on nasogastric tube with low intermittent suction. The patient had a surgical consultation done by Dr. Judd and a GI consultation done by Dr. Maravilla. The patient's symptoms improved and the patient started to move his bowels. The NG tube was discontinued and the patient was started on diet. Surgery recommended to have colonoscopy and the patient was prepared twice for colonoscopy that did not show any significant pathology. The patient was discharged home to continue laxatives and stool softeners due to his recurrent impaction. FINAL DIAGNOSES: 1. Functional intestinal obstruction secondary to stool impaction. 2. Hypertension. 3. Chronic obstructive pulmonary disease. 4. Smoker. [facility] MD Octavio
== END 2018-03-29 18:21 | disposition home or self-care (01) | DRG 388 ==
LOC: C.ER 11:17 → C.9E 16:07 → C.3T 16:57
PROVIDERS: ADMIT Internal Medicine; ATTEND Internal Medicine
PROC: 0DJD8ZZ Inspection of Lower Intestinal Tract, Via Natural or Artificial Opening Endoscopic (ICD-10-PCS; 2018-03-28)
PROC: 0DBM8ZX Excision of Descending Colon, Via Natural or Artificial Opening Endoscopic, Diagnostic (ICD-10-PCS; principal; 2018-03-29 12:45)
DX: K56.41 Fecal impaction (principal); K56.2 Volvulus; K59.04 Chronic idiopathic constipation; K58.1 Irritable bowel syndrome with constipation; K63.89 Other specified diseases of intestine; K64.8 Other hemorrhoids; K64.4 Residual hemorrhoidal skin tags; D64.9 Anemia, unspecified; K21.9 Gastro-esophageal reflux disease without esophagitis; I10 Essential (primary) hypertension; J45.909 Unspecified asthma, uncomplicated; J44.9 Chronic obstructive pulmonary disease, unspecified; F20.9 Schizophrenia, unspecified; E78.00 Pure hypercholesterolemia, unspecified; F17.210 Nicotine dependence, cigarettes, uncomplicated; F79 Unspecified intellectual disabilities; F32.9 Major depressive disorder, single episode, unspecified; Z87.11 Personal history of peptic ulcer disease; Z90.5 Acquired absence of kidney

== ENCOUNTER 2018-05-04 09:59 | Outpatient (CLI) | payer MEDICARE, MEDICAID | END 2018-05-04 10:00 | disposition home or self-care (01) | LOC: C.USIC 09:59 | DX: K74.60 Unspecified cirrhosis of liver (principal) ==

== ENCOUNTER 2018-06-24 15:04 | Inpatient (IN) | payer MEDICARE, MEDICAID ==
[2018-06-24] MEDS ORDERED: Sodium Chloride 0.9% 1,000 ML IV ONE ×2 (15:51→16:17)
[2018-06-24] MEDS ORDERED: Sodium Chloride 0.9% 1,000 ML ONE (16:02)
[2018-06-24 16:40] LABS: BASO # 0.1 K/uL (0.0-0.2); BASO % 0.5 % (0.0-2.0); EOS % 0.3 % (0.0-4.0); HEMOGLOBIN 14.5 g/dL (12.0-18.0); LYMPH # 1.1 K/uL (1.0-4.3); LYMPH % 9.4 % (20.0-40.0); MEAN CELL VOLUME 90.2 fL (80.0-94.0); MEAN CORPUSCULAR HEMOGLOBIN 29.6 pg (27.0-31.0); MEAN CORPUSCULAR HGB CONC 32.8 g/dL (33.0-37.0); MEAN PLATELET VOLUME 8.9 fL (7.2-11.7); MONO # 0.5 K/uL (0.0-0.8); MONO % 4.3 % (0.0-10.0); NEUT # 10.3 K/uL (1.8-7.0); NEUT % 85.5 % (50.0-75.0); PLATELET COUNT 154 K/uL (130-400); RED CELL DISTRIBUTION WIDTH 16.3 % (11.5-14.5)
[2018-06-24 16:56] LABS: ALB/GLOB RATIO 1.6 (1.0-2.1); ALBUMIN 5.1 g/dL (3.5-5.0); BLOOD UREA NITROGEN 21 mg/dL (9-20); CALCIUM 9.3 mg/dl (8.6-10.4); GFR NON-AFRICAN AMERICAN > 60; LIPASE 49 U/L (23-300)
[2018-06-24 16:59] LABS: ALT/SGPT 20 U/L (21-72); AST/SGOT 40 U/L (17-59)
[2018-06-24 17:05] LABS: EOSINOPHIL 1 % (0-4); LYMPHOCYTE 6 % (20-40); MONOCYTE 2 % (0-10); NEUTROPHIL 91 % (50-75); TOTAL CELLS COUNTED 100
[2018-06-24 17:06] LABS: PLATELET ESTIMATE NORMAL (NORMAL)
[2018-06-24 17:07] LABS: ANISOCYTOSIS SLIGHT; TOXIC GRANULATION PRESENT
[2018-06-24] MEDS ORDERED: Iodixanol 320 MG/ML 100 ML BOTTLE IV ONE (17:21)
[2018-06-24 19:51] LABS: SQUAMOUS EPITHIAL 1 /hpf (0-5); URINE BACTERIA FEW (<OCC); URINE BILIRUBIN 2+ (NEGATIVE); URINE BLOOD NEGATIVE (NEGATIVE); URINE CLARITY Hazy (Clear); URINE GLUCOSE (UA) NORMAL (Normal); URINE LEUKOCYTE ESTERASE NEG Leu/uL (Negative); URINE PROTEIN NEGATIVE (NEGATIVE)
[2018-06-24 20:15] LABS: URINE COLOR YELLOW (YELLOW)
--- NOTE | 2018-06-24 21:54 | C.PDOC ---
History Of Present Illness 57 year old male presents to the ED for evaluation of constipation and abdominal distention. Patient reports this happens every couple of months and he usually comes to the ED and is admitted to the Hospital for disimpaction. Patient vomited once today BUSINESS M[facility]. Patient tolerated PO today. Patient denies fever, chills, nausea, vomit, diarrhea, back pain, rash, dysuria, hematuria. Chief Complaint (Nursing): Abdominal Pain History Per: Patient History/Exam Limitations: no limitations Onset/Duration Of Symptoms: Days Current Symptoms Are (Timing): Still Present Location Of Pain/Discomfort: Diffuse Quality Of Discomfort: "Pain" Associated Symptoms: Vomiting, Constipation. denies: Nausea, Diarrhea, Urinary Symptoms Recent travel outside of the [place]: No Additional History Per: Patient Past Medical History Reviewed: Historical Data, Nursing Documentation, Vital Signs Vital Signs: Last Vital Signs Temp 99.2 F 06/24/18 21:13 Pulse 99 H 06/24/18 21:13 Resp 16 06/24/18 21:13 BP 106/72 06/24/18 21:13 Pulse Ox 100 06/24/18 21:13 - Medical History PMH: Anxiety, Asthma, Bronchitis, Depression, Hepatitis, HTN, Schizophrenia Denies: Chronic Kidney Disease Surgical History: No Surg Hx - [facility] Procedures CLOSED ENDOSCOPIC BIOPSY OF LARGE INTESTINE (07/11/14) ESOPHAGOGASTRODUODENOSCOPY [EGD] W/CLOSED BIOPSY (11/01/12) EXCISION OF DESCENDING COLON, ENDO, DIAGN (03/22/18) INSPECTION OF LOWER INTESTINAL TRACT, ENDO (03/22/18) LARYGNOSCOPY AND OTH TRACHEOSCOPY (11/01/12) VACCINATION NEC (11/01/12) Family History: States: Unknown Family Hx - Social History Hx Tobacco Use: Yes Hx Alcohol Use: No Hx Substance Use: No Review Of Systems Constitutional: Negative for: Fever, Chills Cardiovascular: Negative for: Chest Pain Respiratory: Negative for: Shortness of Breath Gastrointestinal: Positive for: Vomiting, Abdominal Pain. Negative for: Nausea, Diarrhea Genitourinary: Negative for: Dysuria, Hematuria Musculoskeletal: Negative for: Back Pain Skin: Negative for: Rash Physical Exam - Physical Exam Appears: Non-toxic, No Acute Distress Skin: Normal Color, Warm, Dry Head: Atraumatic, Normacephalic Eye(s): bilateral: Normal Inspection Neck: Normal ROM, Supple Chest: Symmetrical Cardiovascular: Rhythm Regular Respiratory: Normal Breath Sounds, No Rales, No Rhonchi, No Wheezing Gastrointestinal/Abdominal: Bowel Sounds (hypoactive ), Soft, Tenderness (diffuse), Distention (mild), No Guarding, No Rebound Back: No CVA Tenderness Extremity: Normal ROM, No Tenderness, No Swelling Neurological/Psych: Oriented x3, Normal Speech, Normal Cognition Gait: Steady ED Course And Treatment - Laboratory Results Result Diagrams: 06/24/18 16:33 06/24/18 16:33 Lab Results: Total Bilirubin 0.7 mg/dL (0.2-1.3) 06/24/18 16:33 AST 40 U/L (17-59) 06/24/18 16:33 ALT 20 U/L (21-72) L 06/24/18 16:33 Alkaline Phosphatase 83 U/L (38-126) 06/24/18 16:33 Total Protein 8.3 g/dL (6.3-8.3) 06/24/18 16:33 Albumin 5.1 g/dL (3.5-5.0) H D 06/24/18 16:33 Globulin 3.2 gm/dL (2.2-3.9) 06/24/18 16:33 Albumin/Globulin Ratio 1.6 (1.0-2.1) 06/24/18 16:33 Lipase 49 U/L (23-300) 06/24/18 16:33 Urine Color Yellow (YELLOW) 06/24/18 19:20 Urine Clarity Hazy (Clear) 06/24/18 19:20 Urine pH 5.0 (5.0-8.0) 06/24/18 19:20 Ur Specific [place] 1.049 (1.003-1.030) H 06/24/18 19:20 Urine Protein Negative mg/dL (NEGATIVE) 06/24/18 19:20 Urine Glucose (UA) Normal mg/dL (Normal) 06/24/18 19:20 Urine Ketones Trace mg/dL (NEGATIVE) 06/24/18 19:20 Urine Blood Negative (NEGATIVE) 06/24/18 19:20 Urine Nitrate Negative (NEGATIVE) 06/24/18 19:20 Urine Bilirubin 2+ (NEGATIVE) H 06/24/18 19:20 Urine Urobilinogen 4.0 mg/dL (0.2-1.0) 06/24/18 19:20 Ur Leukocyte Esterase Neg [place]/uL (Negative) 06/24/18 19:20 Urine WBC (Auto) 3 /hpf (0-5) 06/24/18 19:20 Urine RBC (Auto) 2 /hpf (0-3) 06/24/18 19:20 Ur Squamous Epith Cells 1 /hpf (0-5) 06/24/18 19:20 Urine Bacteria Few (<OCC) H 06/24/18 19:20 O2 Sat by Pulse Oximetry: 100 (ON RA) Pulse Ox Interpretation: Normal Medical Decision Making Medical Decision Making: Plan: * CT abd/pelvis * Labs * IV fluids * Toradol 30 mg IVP * Urine culture * UA Dr. Cunningham contacted, reviewed case and patient to be admitted in patient to the medical floor to his service. Disposition - Disposition Disposition: HOSPITALIZED Disposition Time: 19:30 Condition: FAIR - Clinical Impression Clinical Impression: Abdominal distension, Fecal impaction - Scribe Statement The provider has reviewed the documentation as recorded by the Scribe Hosea Garcia All medical record entries made by the Scribe were at my direction and personally dictated by me. I have reviewed the chart and agree that the record accurately reflects my personal performance of the history, physical exam, medical decision making, and the department course for this patient. I have also personally directed, reviewed, and agree with the discharge instructions and disposition.
[2018-06-24 23:18] VITALS: RESP 20
[2018-06-25] MEDS ORDERED: Peg-Electrolyte Oral Soln 4L (Golytely) PO ONE (00:06)
[2018-06-25] MEDS: Dextrose 5%/0.9% NS 1,000 ML IV SCH ×4 (05:58→22:24)
[2018-06-25] MEDS ORDERED: CLOZAPINE 100 MG PO SCH (10:00)
--- NOTE | 2018-06-25 10:14 | CP.PCM.CON ---
History of Present Illness - History of Present Illness History of Present Illness: Surgery Consult Note- Dr. Joseph Reason for consult: Fecal Impaction 57M pmhx significant for bowel obstruction due to chronic constipation presents to [facility] ED w/ Abdominal pain, and constipation for 2 days. Patient states he has frequently hospital visits due to constipation. During evaluation, patient sleep and resting comfortably. States typically has 2BM per day hard and pelets. Denies fevers, chills, chest pain shortness of breath. Fecal disimpacton performed a bedside. After disimpaction and straining, good movement of bowels. PMH: bowel obstruction, chronic constipation, schizophrenia PSH: midline celiotomy incision (patient unaware of what kind of surgery; anastamosis staple line seen on CT scan), colonoscopy ALL: NKDA SocialHx: 5-10 cigs per day for > 10 years, denies current EOTH use. Denies recreational drug use Review of Systems - Review of Systems All systems: reviewed and no additional remarkable complaints except - Constitutional Constitutional: As Per HPI Past Patient History - Past Medical History & Family History Past Medical History?: Yes - Past Social History Smoking Status: Current Some Days Smoker - CARDIAC Hx Hypertension: Yes - PULMONARY Hx Asthma: Yes Hx Bronchitis: Yes - NEUROLOGICAL Hx Neurological Disorder: Yes Other/Comment: MENTAL RETARDATION - HEENT Hx HEENT Problems: No - RENAL Hx Chronic Kidney Disease: No - ENDOCRINE/METABOLIC Hx Endocrine Disorders: No - HEMATOLOGICAL/ONCOLOGICAL Hx Blood Disorders: Yes Hx Cirrhosis: Yes Hx Hepatitis C: Yes - INTEGUMENTARY Hx Dermatological Problems: No - MUSCULOSKELETAL/RHEUMATOLOGICAL Hx Musculoskeletal Disorders: No Hx Falls: No - GASTROINTESTINAL Hx Gastrointestinal Disorders: Yes Hx Constipation: Yes Hx Gastroesophageal Reflux: Yes Other/Comment: fecal impaction - GENITOURINARY/GYNECOLOGICAL Hx Genitourinary Disorders: No - PSYCHIATRIC Hx Anxiety: Yes Hx Depression: Yes Hx Schizophrenia: Yes Hx Substance Use: No - SURGICAL HISTORY Hx Surgeries: Yes Other/Comment: Abdomen with surgical scar but pt cannot recall that he had surgery - ANESTHESIA Hx Anesthesia: Yes Hx Anesthesia Reactions: No Meds Allergies/Adverse Reactions: Allergies Allergy/AdvReac Type Severity Reaction Status Date / Time No Known Allergies Allergy Verified 06/24/18 15:19 - Medications Medications: Current Medications Amlodipine Besylate (Norvasc) 5 mg PO DAILY [facility] Last Admin: 06/25/18 09:36 Dose: 5 mg Aspirin (Aspirin) 325 mg PO DAILY [facility] Last Admin: 06/25/18 09:36 Dose: 325 mg Home Med (Clozapine [Clozapine Odt]) 100 mg PO BID [facility] Dextrose/Sodium Chloride (Dextrose 5%/0.9% Ns 1000 Ml) 1,000 mls @ 100 mls/hr IV .Q10H [facility] Last Admin: 06/25/18 05:58 Dose: 100 mls/hr Propranolol HCl (Inderal) 10 mg PO BID [facility] Last Admin: 06/25/18 09:36 Dose: 10 mg Rosuvastatin Calcium (Crestor) 10 mg PO HS [facility] Physical Exam - Constitutional Appears: Non-toxic, No Acute Distress - Head Exam Head Exam: ATRAUMATIC - Eye Exam Eye Exam: EOMI. absent: Scleral icterus - ENT Exam ENT Exam: Mucous Membranes Moist - Respiratory Exam Respiratory Exam: NORMAL BREATHING PATTERN. absent: Accessory Muscle Use, Respiratory Distress - Cardiovascular Exam Cardiovascular Exam: REGULAR RHYTHM. absent: Bradycardia, Tachycardia - GI/Abdominal Exam GI & Abdominal Exam: Distended, Soft. absent: Firm, Guarding, Hernia, Tenderness Additional comments: tympanic - Rectal Exam Additional comments: Fecal manual disimpaction at bedside. No blood. formed stool. No palpable masses or fullness appreciated - Neurological Exam Neurological exam: Alert, Oriented x3 - Psychiatric Exam Psychiatric exam: Normal Affect - Skin Skin Exam: Intact, Warm Results - Vital Signs Recent Vital Signs: Last Vital Signs Temp 98.2 F 06/25/18 08:00 Pulse 103 H 06/25/18 08:00 Resp 20 06/25/18 08:00 BP 129/69 06/25/18 08:00 Pulse Ox 98 06/25/18 08:00 - Labs Result Diagrams: 06/24/18 16:33 06/24/18 16:33 Labs: Laboratory Results - last 24 hr 06/24/18 06/24/18 06/24/18 16:33 16:33 19:20 WBC 12.0 H D RBC 4.90 Hgb 14.5 D Hct 44.2 MCV 90.2 MCH 29.6 MCHC 32.8 L RDW 16.3 H Plt Count 154 MPV 8.9 Neut % (Auto) 85.5 H Lymph % (Auto) 9.4 L [place] % (Auto) 4.3 Eos % (Auto) 0.3 Baso % (Auto) 0.5 Neut # (Auto) 10.3 H Lymph # (Auto) 1.1 [place] # (Auto) 0.5 Eos # (Auto) 0.0 Baso # (Auto) 0.1 Neutrophils % (Manual) 91 H Lymphocytes % (Manual) 6 L Monocytes % (Manual) 2 Eosinophils % (Manual) 1 Toxic Granulation Present Platelet Estimate Normal Anisocytosis (manual) Slight Sodium 136 Potassium 5.0 Chloride 101 Carbon Dioxide 24 Anion Gap 15 BUN 21 H Creatinine 1.2 Est GFR ( Amer) > 60 Est GFR (Non-Af Amer) > 60 Random Glucose 104 Calcium 9.3 Total Bilirubin 0.7 AST 40 ALT 20 L Alkaline Phosphatase 83 Total Protein 8.3 Albumin 5.1 H D Globulin 3.2 Albumin/Globulin Ratio 1.6 Lipase 49 Urine Color Yellow Urine Clarity Hazy Urine pH 5.0 Ur Specific [place] 1.049 H Urine Protein Negative Urine Glucose (UA) Normal Urine Ketones Trace Urine Blood Negative Urine Nitrate Negative Urine Bilirubin 2+ H Urine Urobilinogen 4.0 Ur Leukocyte Esterase Neg Urine WBC (Auto) 3 Urine RBC (Auto) 2 Ur Squamous Epith Cells 1 Urine Bacteria Few H Assessment & Plan - Assessment and Plan (Free Text) Assessment: 57M w/ chronic constipation w/ dilated loops of large and small bowel Plan: - bedside manual disipmaction performed. Now with ease of stool w/ valsava - continue w/ bowel prep & regiment - if vomits will place NGT - CT scan reviewed, area of local stenosis distal rectum - recommend GI consultation - will follow - d/w Dr. Opal Escobar PGY2
--- NOTE | 2018-06-25 10:14 | CT ---
Date of service: 06/24/2018 PROCEDURE: CT Abdomen and Pelvis with contrast HISTORY: diffuse abd pain with constipation COMPARISON: 03/22/2018 TECHNIQUE: Contrast dose: 100 mL Visipaque 320 Radiation dose: Total exam DLP = 645.45 mGy-cm. This CT exam was performed using one or more of the following dose reduction techniques: Automated exposure control, adjustment of the mA and/or kV according to patient size, and/or use of iterative reconstruction technique. FINDINGS: LOWER THORAX: Unremarkable. LIVER: Normal size, contour and attenuation. Several small nonspecific low-attenuation masses are seen in the left lobe of the liver as on prior examination, the largest of which measures approximately 1.3 cm. No biliary dilatation. GALLBLADDER AND BILE DUCTS: Unremarkable. PANCREAS: Unremarkable. No gross lesion or ductal dilatation. SPLEEN: Unremarkable. ADRENALS: Unremarkable. No mass. KIDNEYS AND URETERS: Unremarkable. No hydronephrosis. No solid mass. VASCULATURE: Unremarkable. No aortic aneurysm. No aortic atherosclerotic calcification or mural plaque present. BOWEL: There is retained fecal matter throughout the entire large bowel with mild dilatation of the colon. There is marked distention of the entire small bowel to the level of the ileocecal valve. Previously identified swirling mesentery sign suggesting small bowel malrotation or volvulus is not evident on the current examination. APPENDIX: Normal appendix. PERITONEUM: Unremarkable. No free fluid. No free air. LYMPH NODES: Unremarkable. No enlarged lymph nodes. BLADDER: Poorly distended. Thickened wall likely artifactual due to lack of distension. REPRODUCTIVE: Unremarkable prostate. BONES: No acute fracture. OTHER FINDINGS: None. IMPRESSION: Diffuse distention of small and large bowel. Extensive retained feces. Fluid within small bowel demonstrating air-fluid levels. Findings likely represent an adynamic ileus rather than mechanical obstruction. However, follow-up is advised. The preliminary findings for this examination were reported by [facility] at 7:42 p.m. on 06/24/2018. There is concurrence of this report with the preliminary findings.
[2018-06-25] MEDS: Bisacodyl 5mg EC Tab PO SCH (18:40)
--- NOTE | 2018-06-25 20:53 | HP ---
HISTORY OF PRESENT ILLNESS: This is a 57-year-old female with history of multiple medical problems presented to emergency room for abdominal pain, vomiting, nausea, and abdominal distention. The patient was evaluated in emergency room and he had a CAT scan of the abdomen and pelvis done that showed diffuse distention of the small and large bowels. Extensive retained feces. Fluid within the small bowel demonstrates air-fluid levels. Findings likely represent an adynamic ileus rather than mechanical obstruction. The patient had surgical consultation done by Dr. Joseph and advice was to admit to medical floor for further management and nonsurgical intervention at this point. REVIEW OF SYSTEMS: Other review of systems is negative. ALLERGIES: NO KNOWN ALLERGIES. MEDICATIONS: Reviewed as per MAR and ordered. SOCIAL HISTORY: Smoker. No EtOH or substance abuse. FAMILY HISTORY: Noncontributory. PAST MEDICAL HISTORY: Hypertension, schizophrenia, COPD, smoker. PHYSICAL EXAMINATION: GENERAL: The patient is in bed not in any discomfort at this point during examination. VITAL SIGNS: Blood pressure 129/69, temperature 98.2, respiratory rate 20, and pulse 103. HEENT: Pupils equal and reactive to light. Normal appearing mucosa of the conjunctivae, oropharynx and nasal membrane mucosa. NECK: Supple. No JVD. No carotid bruit. No lymph node. No thyromegaly. CHEST AND LUNGS: Bilateral symmetrical expansion. Good air exchange. No rales and no rhonchi. CARDIOVASCULAR SYSTEM: PMI not localized. S1, S2. No additional sounds. ABDOMEN: There is distention of the abdomen with decreased bowel sounds. No tenderness, no organomegaly, and no masses. EXTREMITIES: No cyanosis, no clubbing,and no edema. SUPERVISOR ENGRAVING: Alert, awake, and oriented x2. Moves all extremities equally. ASSESSMENT: 1. Intestinal obstruction secondary to stool impaction. 2. Hypertension. 3. Schizophrenia. PLAN: The patient is given enema and IV fluids and monitor for bowel movement. Stool disimpaction. Follow with surgical recommendations. Akil Cunningham MD
[2018-06-26] MEDS: Dextrose 5%/0.9% NS 1,000 ML IV SCH ×3 (05:15→17:19)
--- NOTE | 2018-06-26 08:11 | CP.PCM.PN ---
Subjective - Date & Time of Evaluation Date of Evaluation: 06/26/18 Time of Evaluation: 08:07 - Subjective Subjective: Surgery Progress note- Dr. Joseph had numerous bowel movements yesterday. Received Enema and Golytely. Denies blood in stool. ABd less distended. s/p bedside disimpaction. Denies fevers Objective - Vital Signs/Intake and Output Vital Signs (last 24 hours): Temp Pulse Resp BP Pulse Ox 98.4 F 88 20 113/70 98 06/25/18 23:18 06/25/18 23:18 06/25/18 23:18 06/25/18 23:18 06/25/18 23:18 Intake and Output: 06/26/18 06/26/18 06:59 18:59 Intake Total 1920 Balance 1920 - Medications Medications: Current Medications Amlodipine Besylate (Norvasc) 5 mg PO DAILY [facility] Last Admin: 06/25/18 09:36 Dose: 5 mg Aspirin (Aspirin) 325 mg PO DAILY [facility] Last Admin: 06/25/18 09:36 Dose: 325 mg Bisacodyl (Dulcolax) 5 mg PO BID [facility] Last Admin: 06/25/18 18:40 Dose: 5 mg Clozapine (Clozaril) 100 mg PO BID [facility] Last Admin: 06/25/18 18:40 Dose: 100 mg Dicyclomine HCl (Bentyl) 20 mg PO BID [facility] Last Admin: 06/25/18 18:40 Dose: 20 mg Famotidine (Pepcid) 20 mg PO BID [facility] Last Admin: 06/25/18 18:41 Dose: 20 mg Folic Acid (Folic Acid) 1 mg PO DAILY [facility] Dextrose/Sodium Chloride (Dextrose 5%/0.9% Ns 1000 Ml) 1,000 mls @ 100 mls/hr IV .Q10H [facility] Last Admin: 06/26/18 07:46 Dose: Not Given Lactulose (Enulose) 20 gm PO BID [facility] Last Admin: 06/25/18 18:40 Dose: 20 gm Multivitamins/Vitamin C (Multi-Delyn Liquid) 5 ml PO DAILY [facility] Propranolol HCl (Inderal) 10 mg PO BID [facility] Last Admin: 06/25/18 18:40 Dose: 10 mg Rosuvastatin Calcium (Crestor) 10 mg PO HS [facility] Last Admin: 06/25/18 22:23 Dose: 10 mg Thiamine HCl (Vitamin B1 Tab) 100 mg PO DAILY [facility] - Labs Labs: 06/24/18 16:33 06/24/18 16:33 - Constitutional Appears: Non-toxic, No Acute Distress - Eye Exam Eye Exam: EOMI. absent: Scleral icterus - ENT Exam ENT Exam: Mucous Membranes Moist - Respiratory Exam Respiratory Exam: NORMAL BREATHING PATTERN. absent: Accessory Muscle Use, Respiratory Distress - Cardiovascular Exam Cardiovascular Exam: REGULAR RHYTHM. absent: Bradycardia, Tachycardia - GI/Abdominal Exam GI & Abdominal Exam: Distended (improved from before), Soft. absent: Firm, Guarding, Rigid, Tenderness, Hernia Additional comments: midline incision well healed - Extremities Exam Extremities Exam: absent: Calf Tenderness - Neurological Exam Neurological Exam: Alert, Awake, Oriented x3 - Psychiatric Exam Psychiatric exam: Normal Affect - Skin Skin Exam: Intact, Warm Assessment and Plan - Assessment and Plan (Free Text) Assessment: 57M w/ chronic constipation Plan: - patient having regular bowel movements and passing flatus - continue bowel regiment - recommend soap water enema daily - no acute surgical intervention at this time - d/w Dr. Joseph Surgical attending PGY2
[2018-06-26] MEDS: Bisacodyl 5mg EC Tab PO SCH ×2 (09:37→17:19)
[2018-06-26] MEDS: Multiple Vitamins Oral Solution PO SCH (09:38)
--- NOTE | 2018-06-26 22:25 | PN ---
DATE: 06/26/2018 DAILY PROGRESS NOTE SUBJECTIVE: The patient is seen today, 06/26/2018. He is not in any cardiopulmonary distress. PHYSICAL EXAMINATION: VITAL SIGNS: With a blood pressure of 124/78, temperature 98.8, respiratory rate 20 and pulse 80. HEENT: Pupils equal and reactive to light. Normal-appearing mucosa of the conjunctivae, oropharynx and nasal membrane mucosa. NECK: Supple. No JVD. No carotid bruit. No lymph nodes. No thyromegaly. CHEST AND LUNGS: Bilateral symmetrical expansion. Good air exchange. No rales. No rhonchi. CARDIOVASCULAR SYSTEM: PMI not localized. S1, S2. No additional sounds. ABDOMEN: Decreased abdominal distention both normoactive bowel sounds. No tenderness. No organomegaly. No masses. EXTREMITIES: No cyanosis, no clubbing, no edema. CENTRAL NERVOUS SYSTEM: Alert, awake, oriented x2. No neurological deficit could be appreciated. ASSESSMENT: Intestinal obstruction secondary to stool impaction, status post bowel movements and decreased distention. PLAN: We will advance diet and monitor for another 24 hours. Akil Cunningham MD
[2018-06-27] MEDS: Dextrose 5%/0.9% NS 1,000 ML IV SCH (03:40)
[2018-06-27 06:50] LABS: BASO % 0.6 % (0.0-2.0); EOS # 0.1 K/uL (0.0-0.7); EOS % 2.2 % (0.0-4.0); HEMOGLOBIN 11.8 g/dL (12.0-18.0); LYMPH # 1.5 K/uL (1.0-4.3); LYMPH % 28.3 % (20.0-40.0); MEAN CELL VOLUME 90.3 fL (80.0-94.0); MEAN CORPUSCULAR HEMOGLOBIN 29.9 pg (27.0-31.0); MEAN CORPUSCULAR HGB CONC 33.1 g/dL (33.0-37.0); MEAN PLATELET VOLUME 8.8 fL (7.2-11.7); MONO # 0.7 K/uL (0.0-0.8); MONO % 13.7 % (0.0-10.0); NEUT # 2.9 K/uL (1.8-7.0); NEUT % 55.2 % (50.0-75.0); RBC 3.93 Mil/uL (4.40-5.90); RED CELL DISTRIBUTION WIDTH 15.4 % (11.5-14.5); WHITE BLOOD COUNT 5.3 K/uL (4.8-10.8)
[2018-06-27 07:06] LABS: BLOOD UREA NITROGEN 7 mg/dL (9-20); CALCIUM 8.2 mg/dl (8.6-10.4); GFR NON-AFRICAN AMERICAN > 60
[2018-06-27 07:51] VITALS: BP 137/86; PULSE 88; TEMP 98.7; O2SAT 95
[2018-06-27] MEDS ORDERED: Pneumococcal 23-Valent Vaccine IM ONE (10:00)
[2018-06-27] MEDS: Multiple Vitamins Oral Solution PO SCH (10:54)
[2018-06-27] MEDS: Bisacodyl 5mg EC Tab PO SCH (10:55)
--- NOTE | 2018-06-27 17:45 | CP.PCM.PN ---
Subjective - Date & Time of Evaluation Date of Evaluation: 06/27/18 Time of Evaluation: 11:00 - Subjective Subjective: alert, oriented, ambulatory, denies abdominal pain. Objective - Vital Signs/Intake and Output Vital Signs (last 24 hours): Temp Pulse Resp BP Pulse Ox 98.7 F 88 20 137/86 95 06/27/18 07:50 06/27/18 07:50 06/27/18 07:50 06/27/18 07:50 06/27/18 07:50 Intake and Output: 06/27/18 06/27/18 06:59 18:59 Intake Total 1300 900 Balance 1300 900 - Labs Labs: 06/27/18 06:28 06/27/18 06:28 Assessment and Plan - Assessment and Plan (Free Text) Assessment: 57 year old male from the care home admitted with abdominal pain and constipation, seen and examined. Alert and oriented x3, tolerating diet, moved bowelx2 today. Denies abdominal pain Discussed with DR Cunningham, plan to discharge home today. Advised to continue with present medications monitor for constipation/ maintain regular bowel movements follow up with PMD in 1 week discontinue amlodipine and bentyl
--- NOTE | 2018-06-28 09:40 | DS ---
REASON FOR ADMISSION: This is a 57-year-old -Faroese male with history of multiple medical problems who was admitted for intestinal obstruction secondary to stool impaction. COURSE OF HOSPITALIZATION: The patient was admitted to medical floor, and he has enema as well as continued on stool softeners. The patient was given GoLYTELY. The patient had a surgical consultation done by Dr. Joseph and decision was not to have any surgical intervention. The patient did well, and he was moving his bowel and normal and did not have anymore vomiting and tolerated food well. Amlodipine was discontinued due to possible side effect of constipation as well as any anticholinergic medications and the patient was discharged home to follow up with his primary care physician, Dr. Cunningham. FINAL DIAGNOSES: Intestinal obstruction, stool impaction, chronic constipation, hypertension. [facility] MD Octavio
== END 2018-06-27 15:21 | disposition home or self-care (01) | DRG 389 ==
LOC: C.ER 15:04 → C.9E 19:49 → C.6T 21:07 → C.9E 21:18 → C.3T 22:03
PROVIDERS: ADMIT Internal Medicine; ATTEND Internal Medicine
DX: K56.41 Fecal impaction (principal); K56.0 Paralytic ileus; J45.909 Unspecified asthma, uncomplicated; F41.9 Anxiety disorder, unspecified; F32.9 Major depressive disorder, single episode, unspecified; K75.9 Inflammatory liver disease, unspecified; J44.9 Chronic obstructive pulmonary disease, unspecified; I10 Essential (primary) hypertension; F20.9 Schizophrenia, unspecified; Z87.891 Personal history of nicotine dependence; F79 Unspecified intellectual disabilities; K74.60 Unspecified cirrhosis of liver; K21.9 Gastro-esophageal reflux disease without esophagitis

== ENCOUNTER 2018-07-03 17:10 | Emergency (ER) | payer MEDICARE, MEDICAID ==
--- NOTE | 2018-07-03 17:45 | C.PDOC ---
History Of Present Illness 57 year old male [facility] via BLS [facility] presents to ED after feeling dizzy for a couple of months. Patient is a poor historian. A bedside, patient states that he "feels fine", is eating, and in no distress. Patient denies fe pamela, pain, chills, weakness, numbness, or headache. Time Seen by Provider: 07/03/18 17:42 Chief Complaint (Nursing): Dizziness/Lightheaded History Per: Patient History/Exam Limitations: no limitations Onset/Duration Of Symptoms: Other (3 months) Current Symptoms Are (Timing): Gone Seizure Or Post-ictal Symptoms: None Fall Associated With With Symptoms: No Past Medical History Reviewed: Historical Data, Nursing Documentation, Vital Signs Vital Signs: Last Vital Signs Temp 98.6 F 07/03/18 17:20 Pulse 102 H 07/03/18 17:20 Resp 20 07/03/18 17:20 BP 117/77 07/03/18 17:20 Pulse Ox 98 07/03/18 17:20 Primary Care Provider: Non [facility] Provider, - Medical History PMH: Anxiety, Asthma, Bronchitis, Depression, Hepatitis, HTN, Schizophrenia Denies: Chronic Kidney Disease Surgical History: No Surg Hx - [facility] Procedures CLOSED ENDOSCOPIC BIOPSY OF LARGE INTESTINE (07/11/14) ESOPHAGOGASTRODUODENOSCOPY [EGD] W/CLOSED BIOPSY (11/01/12) EXCISION OF DESCENDING COLON, ENDO, DIAGN (03/22/18) INSPECTION OF LOWER INTESTINAL TRACT, ENDO (03/22/18) LARYGNOSCOPY AND OTH TRACHEOSCOPY (11/01/12) VACCINATION NEC (11/01/12) Family History: States: Unknown Family Hx - Social History Hx Tobacco Use: Yes Hx Alcohol Use: Yes (hx of etoh use) Hx Substance Use: No - Immunization History Hx Tetanus Toxoid Vaccination: No Hx Influenza Vaccination: Yes Hx Pneumococcal Vaccination: No Review Of Systems Except As Marked, All Systems Reviewed And Found Negative. Physical Exam - Physical Exam Appears: Well, Non-toxic, No Acute Distress Skin: Warm, Dry Head: Atraumatic, Normacephalic Eye(s): bilateral: Normal Inspection Neck: Normal ROM, Supple Chest: Symmetrical, No Deformity Cardiovascular: Rhythm Regular, No Murmur Respiratory: No Accessory Muscle Use Gastrointestinal/Abdominal: Soft, No Tenderness Extremity: Capillary Refill (<2 seconds) Extremity: Bilateral: Atraumatic, Normal Color And Temperature, Normal ROM Pulses: Left Radial: Normal, Right Radial: Normal Neurological/Psych: Oriented x3, Normal Speech, Normal Cognition ED Course And Treatment - Laboratory Results Result Diagrams: 07/03/18 18:08 07/03/18 18:08 O2 Sat by Pulse Oximetry: 98 (in RA) Pulse Ox Interpretation: Normal Medical Decision Making Medical Decision Making: Impression: 57 [facility] presents to ED after feeling dizzy for a couple of months. Initial Plan: CMP CBC PTT prothrombin labs neg. updated pmd. stable for dc. Disposition - Disposition Disposition: HOME/ ROUTINE Disposition Time: 18:00 Condition: STABLE Additional Instructions: follow up with your doctor/clinic. reutrn to er with worsening. Instructions: Dizziness, Nonvertigo, (DC) Forms: [employer] (Rwandan) - Clinical Impression Clinical Impression: Dizziness - Scribe Statement The provider has reviewed the documentation as recorded by the Scribe (Andreina Delgado) All medical record entries made by the Scribe were at my direction and personally dictated by me. I have reviewed the chart and agree that the record accurately reflects my personal performance of the history, physical exam, medical decision making, and the department course for this patient. I have also personally directed, reviewed, and agree with the discharge instructions and disposition.
[2018-07-03 18:15] LABS: BASO % 0.5 % (0.0-2.0); EOS # 0.1 K/uL (0.0-0.7); EOS % 1.5 % (0.0-4.0); HEMOGLOBIN 13.1 g/dL (12.0-18.0); LYMPH # 1.8 K/uL (1.0-4.3); LYMPH % 28.2 % (20.0-40.0); MEAN CELL VOLUME 89.9 fL (80.0-94.0); MEAN CORPUSCULAR HEMOGLOBIN 29.5 pg (27.0-31.0); MEAN CORPUSCULAR HGB CONC 32.8 g/dL (33.0-37.0); MEAN PLATELET VOLUME 7.9 fL (7.2-11.7); MONO % 15.5 % (0.0-10.0); NEUT # 3.4 K/uL (1.8-7.0); NEUT % 54.3 % (50.0-75.0); RBC 4.42 Mil/uL (4.40-5.90); WHITE BLOOD COUNT 6.3 K/uL (4.8-10.8)
[2018-07-03 18:23] LABS: INR 1.2; PROTHROMBIN TIME 12.7 SECONDS (9.7-12.2)
[2018-07-03 18:39] LABS: ALB/GLOB RATIO 1.5 (1.0-2.1); ALT/SGPT 29 U/L (21-72); AST/SGOT 30 U/L (17-59); BLOOD UREA NITROGEN 15 mg/dL (9-20); CALCIUM 8.7 mg/dl (8.6-10.4); GFR NON-AFRICAN AMERICAN 57
[2018-07-03 22:38] VITALS: RESP 16
[2018-07-04 01:48] VITALS: BP 121/77; PULSE 79; TEMP 97.6; O2SAT 95
== END 2018-07-04 01:48 | disposition home or self-care (01) ==
LOC: C.ER 17:10
DX: R42 Dizziness and giddiness (principal); I10 Essential (primary) hypertension; F17.210 Nicotine dependence, cigarettes, uncomplicated
CPT/HCPCS: 72HRC; 99285

== ENCOUNTER 2018-07-04 12:25 | Inpatient (IN) | payer MEDICARE, MEDICAID ==
--- NOTE | 2018-07-04 13:28 | C.PDOC ---
Time Seen by Provider: 07/04/18 13:20 Chief Complaint (Nursing): Abdominal Pain Past Medical History Vital Signs: Last Vital Signs Temp 98 F 07/04/18 12:54 Pulse 104 H 07/04/18 12:54 Resp 20 07/04/18 12:54 BP 99/56 L 07/04/18 12:54 Pulse Ox 99 07/04/18 12:54 Primary Care Provider: FAMILY PROVIDER,NO - Medical History PMH: Anxiety, Asthma, Bronchitis, Depression, Hepatitis, HTN, Schizophrenia Denies: Chronic Kidney Disease - [facility] Procedures CLOSED ENDOSCOPIC BIOPSY OF LARGE INTESTINE (07/11/14) ESOPHAGOGASTRODUODENOSCOPY [EGD] W/CLOSED BIOPSY (11/01/12) EXCISION OF DESCENDING COLON, ENDO, DIAGN (03/22/18) INSPECTION OF LOWER INTESTINAL TRACT, ENDO (03/22/18) LARYGNOSCOPY AND OTH TRACHEOSCOPY (11/01/12) VACCINATION NEC (11/01/12) Family History: States: Unknown Family Hx - Social History Hx Tobacco Use: Yes Hx Alcohol Use: Yes (hx of etoh use) Hx Substance Use: No - Immunization History Hx Tetanus Toxoid Vaccination: No Hx Influenza Vaccination: Yes Hx Pneumococcal Vaccination: No ED Course And Treatment O2 Sat by Pulse Oximetry: 99 Disposition - Disposition
--- NOTE | 2018-07-04 13:34 | C.PDOC ---
History Of Present Illness POOR HISTORIAN RECUR VOMITING. "I FEEL BETTER NOW". SEEN 5/ FOR CHRONIC DIZZY PER NH. SEEN LAST NIGHT AND 06/25. 06/25/18 10:09 Initialization Date: 06/25/18 10:09 History of Present Illness - History of Present Illness History of Present Illness: Surgery Consult Note- Dr. Joseph Reason for consult: Fecal Impaction 57M pmhx significant for bowel obstruction due to chronic constipation presents to [facility] [place] ED w/ Abdominal pain, and constipation for 2 days. Patient states he has frequently hospital visits due to constipation. During evaluation, patient sleep and resting comfortably. States typically has 2BM per day hard and pelets. Denies fevers, chills, chest pain shortness of breath. Fecal disimpacton performed a bedside. After disimpaction and straining, good movement of bowels. PMH: bowel obstruction, chronic constipation, schizophrenia PSH: midline celiotomy incision (patient unaware of what kind of surgery; anastamosis staple line seen on CT scan), colonoscopy ALL: NKDA SocialHx: 5-10 cigs per day for > 10 years, denies current EOTH use. Denies recreational drug use Chief Complaint (Nursing): Abdominal Pain Past Medical History Vital Signs: Last Vital Signs Temp 98 F 07/04/18 12:54 Pulse 88 07/04/18 13:15 Resp 16 07/04/18 13:15 BP 133/88 07/04/18 13:15 Pulse Ox 99 07/04/18 13:28 Primary Care Provider: FAMILY PROVIDER,NO - Medical History PMH: Anxiety, Asthma, Bronchitis, Depression, Hepatitis, HTN, Schizophrenia Denies: Chronic Kidney Disease - [facility] Procedures CLOSED ENDOSCOPIC BIOPSY OF LARGE INTESTINE (07/11/14) ESOPHAGOGASTRODUODENOSCOPY [EGD] W/CLOSED BIOPSY (11/01/12) EXCISION OF DESCENDING COLON, ENDO, DIAGN (03/22/18) INSPECTION OF LOWER INTESTINAL TRACT, ENDO (03/22/18) LARYGNOSCOPY AND OTH TRACHEOSCOPY (11/01/12) VACCINATION NEC (11/01/12) Family History: States: Unknown Family Hx - Social History Hx Tobacco Use: Yes Hx Alcohol Use: Yes (hx of etoh use) Hx Substance Use: No - Immunization History Hx Tetanus Toxoid Vaccination: No Hx Influenza Vaccination: Yes Hx Pneumococcal Vaccination: No ED Course And Treatment O2 Sat by Pulse Oximetry: 99 Disposition - Disposition Forms: [employer] (Greek)
[2018-07-04] MEDS ORDERED: Iohexol 240 (50 ml) PO STA (14:28)
[2018-07-04] MEDS ORDERED: Sodium Chloride 0.9% 1,000 ML IV ONE (14:28)
--- NOTE | 2018-07-04 14:32 | C.PDOC ---
History Of Present Illness 57 year old male presents to ED with complaint of recurrent vomiting of unknown duration. Patient states" I feel better now." Patient is a poor historian. Patient was seen on 07/03 for chronic dizziness per [facility]. No noted vo miting per ER record. Patient's labs are within normal limits. During current evaluation there were multiple episodes of vomiting witnessed by triage per RN's note. Patient was seen 06/25 for chronic constipation s/p disimpaction by surgery. Patient has a PMHx of schizophrenia, chronic constipation, and bowel obstruction. Patient has a PSHx of midline celiotomy incision (patient is unaware of what kind of surgery; anastamosis staple line seen on CT scan) and colonoscopy. Patient smokes 5-10 cigarettes per day for >10 years. Patient denies alcohol use and recreational drug use. Patient denies headache, abdominal pain, and diarrhea. POOR HISTORIAN RECUR VOMITING UNK DURATION. "I FEEL BETTER NOW". SEEN 07/03 FOR CHRONIC DIZZY PER NH. NO NOTED VOMITING PER ER RECORD. LABS WNL. DURING CURRENT EVAL MULT VOMITING WITNESSED BY TRIAGE PER RN NOTE. DENIES FAIRCHILD, ABD PAIN. SEEN 06/25 FOR CHRONIC CONSTIPATION S/P DISIMPACTION BY SURGERY PMH: bowel obstruction, chronic constipation, schizophrenia PSH: midline celiotomy incision (patient unaware of what kind of surgery; anastamosis staple line seen on CT scan), colonoscopy ALL: NKDA SocialHx: 5-10 cigs per day for > 10 years, denies current EOTH use. Denies recreational drug use EXAM NONTOXIC HEENT ANICTERIC; UNCOOP FOR NYSTAGMUS EVAL ABD DISTENDED SOFT NON TEND NEURO NO GROSS FOCAL DEF REMAINDER NEG MDM POOR HISTORIAN. VERTIGO VS ABD CAUSE? RECENT ABD CT +FECAL IMPACT, NO MECH OBSTRUCTION. LABS, CT ABD AND HEAD, REEVAL <Loretta Mcallister - Last Filed: 07/04/18 18:44> History Per: Patient History/Exam Limitations: no limitations Onset/Duration Of Symptoms: Unknown Current Symptoms Are (Timing): Still Present Associated Symptoms: Vomiting. denies: Diarrhea, Constipation, Urinary Symptoms <Loretta Mcallister - Last Filed: 07/04/18 18:44> <Harpreet Estrada - Last Filed: 07/04/18 20:37> Time Seen by Provider: 07/04/18 13:20 Chief Complaint (Nursing): Abdominal Pain Past Medical History Reviewed: Historical Data, Nursing Documentation, Vital Signs Vital Signs: Last Vital Signs Temp 98 F 07/04/18 12:54 Pulse 88 07/04/18 13:15 Resp 16 07/04/18 13:15 BP 133/88 07/04/18 13:15 Pulse Ox 99 07/04/18 14:27 Primary Care Provider: FAMILY PROVIDER,NO - Medical History PMH: Anxiety, Asthma, Bronchitis, Depression, Hepatitis, HTN, Schizophrenia Denies: Chronic Kidney Disease Other Surgeries: midline celiotomy incision(patient is unaware of what kind of surgery; anastamosis staple line seen on CT scan), and colonoscopy - [facility] Procedures CLOSED ENDOSCOPIC BIOPSY OF LARGE INTESTINE (07/11/14) ESOPHAGOGASTRODUODENOSCOPY [EGD] W/CLOSED BIOPSY (11/01/12) EXCISION OF DESCENDING COLON, ENDO, DIAGN (03/22/18) INSPECTION OF LOWER INTESTINAL TRACT, ENDO (03/22/18) LARYGNOSCOPY AND OTH TRACHEOSCOPY (11/01/12) VACCINATION NEC (11/01/12) Family History: States: Unknown Family Hx - Social History Hx Tobacco Use: Yes Hx Alcohol Use: Yes (hx of etoh use) Hx Substance Use: No - Immunization History Hx Tetanus Toxoid Vaccination: No Hx Influenza Vaccination: Yes Hx Pneumococcal Vaccination: No <Loretta Mcallister - Last Filed: 07/04/18 18:44> Vital Signs: Last Vital Signs Temp 100.6 F H 07/04/18 18:19 Pulse 101 H 07/04/18 18:19 Resp 18 07/04/18 18:19 BP 115/80 07/04/18 18:19 Pulse Ox 99 07/04/18 18:44 - [facility] Procedures CLOSED ENDOSCOPIC BIOPSY OF LARGE INTESTINE (07/11/14) ESOPHAGOGASTRODUODENOSCOPY [EGD] W/CLOSED BIOPSY (11/01/12) EXCISION OF DESCENDING COLON, ENDO, DIAGN (03/22/18) INSPECTION OF LOWER INTESTINAL TRACT, ENDO (03/22/18) LARYGNOSCOPY AND OTH TRACHEOSCOPY (11/01/12) VACCINATION NEC (11/01/12) <Harpreet Estrada - Last Filed: 07/04/18 20:37> Review Of Systems Except As Marked, All Systems Reviewed And Found Negative. Gastrointestinal: Positive for: Vomiting <Loretta Mcallister - Last Filed: 07/04/18 18:44> Physical Exam - Physical Exam Appears: Non-toxic, No Acute Distress Skin: Normal Color, Warm, Dry Head: Atraumatic, Normacephalic Eye(s): bilateral: Other (anicteric, patient uncooperative for nystagmus evaluation) Neck: Normal ROM, Supple Chest: Symmetrical, No Deformity Cardiovascular: Rhythm Regular, No Murmur Respiratory: No Accessory Muscle Use, No Rales, No Rhonchi, No Wheezing, Other (NARD) Gastrointestinal/Abdominal: Soft, No Tenderness, Distention Extremity: Capillary Refill (<2 seconds) Extremity: Bilateral: Atraumatic, Normal Color And Temperature, Normal ROM Pulses: Left Radial: Normal, Right Radial: Normal Neurological/Psych: Oriented x3, Normal Speech, Normal Cognition, Normal Cranial Nerves, Normal Motor, Normal Sensation Gait: Steady <Loretta Mcallister - Last Filed: 07/04/18 18:44> ED Course And Treatment - Laboratory Results Result Diagrams: 07/04/18 14:45 07/04/18 14:45 ECG: Interpreted By Vt ECG Rhythm: Sinus Rhythm ECG Interpretation: Normal Rate From EC O2 Sat by Pulse Oximetry: 99 (in RA) Pulse Ox Interpretation: Normal Progress Note: Abdomen/Pelvis CT, Head CT, and EKG ordered for patient. Labs ordered with CMP, lipase, and CBC. Patient given IV fluids and Zofran IVP. <Loretta Mcallister - Last Filed: 07/04/18 18:44> - Laboratory Results Result Diagrams: 07/04/18 14:45 07/04/18 14:45 Lab Results: pO2 28 mm/Hg (30-55) L 07/04/18 19:14 VBG pH 7.32 (7.32-7.43) 07/04/18 19:14 VBG pCO2 35 mmHg (40-60) L 07/04/18 19:14 VBG HCO3 17.8 mmol/L 07/04/18 19:14 VBG Total CO2 19.1 mmol/L (22-28) L 07/04/18 19:14 VBG O2 Sat (Calc) 50.5 % (40-65) 07/04/18 19:14 VBG Base Excess -7.3 mmol/L (0.0-2.0) L 07/04/18 19:14 VBG Potassium 3.6 mmol/L (3.6-5.2) 07/04/18 19:14 Sodium 141.0 mmol/l (132-148) 07/04/18 19:14 Chloride 115.0 mmol/L (98-107) H 07/04/18 19:14 Glucose 64 mg/dl (75-110) L 07/04/18 19:14 Lactate 1.2 mmol/L (0.7-2.1) 07/04/18 19:14 Total Bilirubin 0.3 mg/dL (0.2-1.3) 07/04/18 14:45 AST 18 U/L (17-59) 07/04/18 14:45 ALT 21 U/L (21-72) D 07/04/18 14:45 Alkaline Phosphatase 57 U/L (38-126) 07/04/18 14:45 Total Protein 5.0 g/dL (6.3-8.3) L 07/04/18 14:45 Albumin 2.8 g/dL (3.5-5.0) L D 07/04/18 14:45 Globulin 2.3 gm/dL (2.2-3.9) 07/04/18 14:45 Albumin/Globulin Ratio 1.2 (1.0-2.1) 07/04/18 14:45 Lipase 20 U/L (23-300) L 07/04/18 14:45 Urine Color Debbie (YELLOW) 07/04/18 19:12 Urine Clarity Hazy (Clear) 07/04/18 19:12 Urine pH 5.0 (5.0-8.0) 07/04/18 19:12 Ur Specific [place] 1.038 (1.003-1.030) H 07/04/18 19:12 Urine Protein 2+ mg/dL (NEGATIVE) H 07/04/18 19:12 Urine Glucose (UA) Normal mg/dL (Normal) 07/04/18 19:12 Urine Ketones Trace mg/dL (NEGATIVE) 07/04/18 19:12 Urine Blood Negative (NEGATIVE) 07/04/18 19:12 Urine Nitrate Negative (NEGATIVE) 05/07/19 19:12 Urine Bilirubin 1+ (NEGATIVE) H 07/04/18 19:12 Urine Urobilinogen 4.0 mg/dL (0.2-1.0) 07/04/18 19:12 Ur Leukocyte Esterase Neg Jordan/uL (Negative) 07/04/18 19:12 Urine WBC (Auto) 8 /hpf (0-5) H 07/04/18 19:12 Ur Squamous Epith Cells 6 /hpf (0-5) H 07/04/18 19:12 Urine Bacteria Occ (<OCC) H 07/04/18 19:12 <Harpreet Estrada - Last Filed: 07/04/18 20:37> Progress - Re-Evaluation Re-evaluation Note: 07/04/18 16:46 D/W DR CUNNINGHAM AWARE OF ER FINDINGS WILL ADMIT. CT PENDING. EXAM UNCH INITIAL, NO RECUR VOMITING OR BM SINCE INITIAL EVAL. VSS. 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 NEURO INTACT. - Data Reviewed Data Reviewed: Lab, Diagnostic imaging, EKG, Old records <Loretta Mcallister - Last Filed: 07/04/18 18:44> Medical Decision Making Medical Decision Making: Patient is a poor historian. MDM: Vertigo vs abdominal cause? Recent abdominal CT shows + fecal impact, no mechanical obstruction. Plan: Labs Abdominal CT Head CT Re-evaluation <Loretta Mcallister - Last Filed: 07/04/18 18:44> Disposition - Disposition Disposition Time: 19:00 <Loretta Mcallister - Last Filed: 07/04/18 18:44> Discussed With DrCassie: Akil Cunningham Comment: accepted the pt on his service and took over the care at 8:32 PM Doctor Will See Patient In The: Hospital Counseled Patient/Family Regarding: Studies Performed, Diagnosis - POA Present On Arrival: Poor Glycemic Control <Harpreet Estrada - Last Filed: 07/04/18 20:37> - Disposition Disposition: HOSPITALIZED Condition: FAIR Forms: [facility] (Cameroonian) - Clinical Impression Clinical Impression: Vomiting, Fecal impaction, Abdominal pain, Constipation, Anemia - Scribe Statement The provider has reviewed the documentation as recorded by the Scribe (Andreina Delgado) All medical record entries made by the Scribe were at my direction and personally dictated by me. I have reviewed the chart and agree that the record accurately reflects my personal performance of the history, physical exam, medical decision making, and the department course for this patient. I have also personally directed, reviewed, and agree with the discharge instructions and disposition. <Loretta Mcallister - Last Filed: 07/04/18 18:44> Physician Patient Turnover Patient Signed Over To: Harpreet Estrada Handoff Comments: FU CT, CXR, VBG DISPO <Loretta Mcallister - Last Filed: 07/04/18 18:44> Decision To Admit <Loretta Mcallister - Last Filed: 07/04/18 18:44> - Pt Status Changed To: Hospital Disposition Of: Inpatient - Admit Certification Admit to Inpatient:: After my assessment, the patient will require hospitalization for at least two midnights. This is because of the severity of symptoms shown, intensity of services needed, and/or the medical risk in this patient being treated as an outpatient. - InPatient: Physician Admission Certification: I certify that this patient requires 2 or m ore midnights of care for the following reason:: After my assessment, the patient will require hospitalization for at least two midnights. This is because of the severity of symptoms shown, intensity of services needed, and/or the medical risk in this patient being treated as an outpatient. - . Bed Request Type: Regular Admitting Physician: Akil Cunningham <Harpreet Estrada - Last Filed: 07/04/18 20:37> - . Patient Diagnosis: Vomiting, Fecal impaction, Abdominal pain, Constipation, Anemia
[2018-07-04 14:49] LABS: BASO % 0.1 % (0.0-2.0); EOS % 0.4 % (0.0-4.0); LYMPH # 0.8 K/uL (1.0-4.3); LYMPH % 12.5 % (20.0-40.0); MEAN CORPUSCULAR HEMOGLOBIN 30.4 pg (27.0-31.0); MEAN CORPUSCULAR HGB CONC 33.1 g/dL (33.0-37.0); MEAN PLATELET VOLUME 8.1 fL (7.2-11.7); MONO # 0.6 K/uL (0.0-0.8); MONO % 9.7 % (0.0-10.0); NEUT # 5.1 K/uL (1.8-7.0); NEUT % 77.3 % (50.0-75.0); RBC 3.56 Mil/uL (4.40-5.90); RED CELL DISTRIBUTION WIDTH 15.1 % (11.5-14.5); WHITE BLOOD COUNT 6.7 K/uL (4.8-10.8)
[2018-07-04] MEDS ORDERED: Iohexol 240 (50 ml) ONE (14:55)
[2018-07-04 14:58] LABS: HEMOGLOBIN 10.8 g/dL (12.0-18.0); MEAN CELL VOLUME 91.9 fL (80.0-94.0)
[2018-07-04 15:20] LABS: ALB/GLOB RATIO 1.2 (1.0-2.1); ALBUMIN 2.8 g/dL (3.5-5.0); ALT/SGPT 21 U/L (21-72); AST/SGOT 18 U/L (17-59); BLOOD UREA NITROGEN 16 mg/dL (9-20); CALCIUM 6.1 mg/dl (8.6-10.4); GFR NON-AFRICAN AMERICAN > 60; LIPASE 20 U/L (23-300)
[2018-07-04] MEDS ORDERED: Iodixanol 320 MG/ML 100 ML BOTTLE IV ONE (18:21)
--- NOTE | 2018-07-04 19:03 | CT ---
Date of service: 07/04/2018 PROCEDURE: CT HEAD WITHOUT CONTRAST. HISTORY: DIZZY VOMITING COMPARISON: Noncontrast head CT performed 09/16/17 TECHNIQUE: Axial computed tomography images were obtained through the head/brain without intravenous contrast. Radiation dose: Total exam DLP = 1103.78 mGy-cm. This CT exam was performed using one or more of the following dose reduction techniques: Automated exposure control, adjustment of the mA and/or kV according to patient size, and/or use of iterative reconstruction technique. FINDINGS: Streak artifact limits evaluation of the skull base. HEMORRHAGE: No intracranial hemorrhage. BRAIN: Diffuse atrophy with prominence of the ventricles and sulci noted. No mass effect or edema. Intracranial atherosclerosis. Scattered periventricular and subcortical white matter hypodensities, which are nonspecific, but often seen with chronic microvascular ischemic disease. Please note that MRI with diffusion imaging is more sensitive in the detection of acute ischemic event. VENTRICLES: No hydrocephalus. CALVARIUM: Unremarkable. PARANASAL SINUSES: Right frontal mucosal thickening. MASTOID AIR CELLS: Unremarkable as visualized. No inflammatory changes. OTHER FINDINGS: None. IMPRESSION: Generalized atrophy. Nonspecific white matter changes. Right frontal mucosal thickening.
[2018-07-04 19:19] LABS: VENOUS BLOOD GAS BASE EXCESS -7.3 mmol/L (0.0-2.0); VENOUS BLOOD GAS PCO2 35 mmHg (40-60); VENOUS BLOOD GAS PO2 28 mm/Hg (30-55); VENOUS BLOOD PH 7.32 (7.32-7.43)
[2018-07-04 19:32] LABS: SQUAMOUS EPITHIAL 6 /hpf (0-5); URINE BACTERIA OCC (<OCC); URINE BILIRUBIN 1+ (NEGATIVE); URINE BLOOD NEGATIVE (NEGATIVE); URINE CLARITY Hazy (Clear); URINE COLOR Amber (YELLOW); URINE GLUCOSE (UA) NORMAL (Normal); URINE LEUKOCYTE ESTERASE NEG Leu/uL (Negative); URINE PROTEIN 2+ mg/dL (NEGATIVE)
[2018-07-05] MEDS: Dextrose 5%/0.9% NS 1,000 ML IV SCH (05:47)
[2018-07-05] MEDS: Pantoprazole 40 mg Susp UD NG SCH ×3 (05:49→17:29)
[2018-07-05] MEDS ORDERED: Ipratropium 0.02% Inhal Soln (0.5 mg/2.5 ml) UD IH SCH (08:15)
--- NOTE | 2018-07-05 09:03 | CT ---
Date of service: 07/04/2018 PROCEDURE: CT Abdomen and Pelvis with contrast HISTORY: abd pain COMPARISON: None. TECHNIQUE: Contrast dose: 100 mL Visipaque 320 Radiation dose: Total exam DLP = 427.83 mGy-cm. This CT exam was performed using one or more of the following dose reduction techniques: Automated exposure control, adjustment of the mA and/or kV according to patient size, and/or use of iterative reconstruction technique. FINDINGS: LOWER THORAX: Unremarkable. LIVER: Normal size, contour and attenuation. Several nonspecific rounded low-attenuation masses in both the right and left hepatic lobes. The largest such mass is seen in the left hepatic lobe, measuring approximately 12 mm in diameter. GALLBLADDER AND BILE DUCTS: Unremarkable. PANCREAS: Mildly atrophic. No mass or ductal dilatation. No peripancreatic fluid collection. SPLEEN: Unremarkable. ADRENALS: Unremarkable. No mass. KIDNEYS AND URETERS: Unremarkable. No hydronephrosis. No solid mass. VASCULATURE: Unremarkable. No aortic aneurysm. There is atherosclerotic calcification of the abdominal aorta. BOWEL: There is dilatation of a large portion of the small bowel. Collapsed distal ileum is seen on both the current and prior examinations. The point of transition is not definitely identified but is likely in the mid ileum. Findings consistent with mechanical bowel obstruction. There is a large amount of stool within the colon. APPENDIX: Normal appendix. PERITONEUM: Trace ascites in the cul-de-sac LYMPH NODES: Unremarkable. No enlarged lymph nodes. BLADDER: Unremarkable. REPRODUCTIVE: Unremarkable prostate BONES: No acute fracture. OTHER FINDINGS: None. IMPRESSION: Suspected mechanical small-bowel obstruction. Point of transition not definitively identified but likely in the mid ileal region. The distal ileum is collapsed. Minor findings as above. The preliminary findings for this examination were reported by [facility] at 8:05 p.m. on 07/04/2018. There is concurrence of this report with the preliminary findings.
[2018-07-05] MEDS ORDERED: Home Med 1 UNIT PO SCH (10:00)
[2018-07-05] MEDS: Multiple Vitamins Tab PO SCH (10:46)
[2018-07-05 14:21] LABS: BLOOD UREA NITROGEN 13 mg/dL (9-20); CALCIUM 6.8 mg/dl (8.6-10.4); GFR NON-AFRICAN AMERICAN > 60
[2018-07-05] MEDS: LINZESS 145MCG PO SCH (17:30)
--- NOTE | 2018-07-06 01:08 | CARD ---
APPROVED REPORT Date of service: 07/04/2018 EKG Measurement Heart [id number] <Conclusion> Sinus rhythm with occasional premature ventricular complexes Nonspecific T wave abnormality Prolonged QT Abnormal ECG
[2018-07-06] MEDS: Dextrose 5%/0.9% NS 1,000 ML IV SCH ×2 (01:36→16:00)
--- NOTE | 2018-07-06 02:17 | HP ---
HISTORY OF PRESENT ILLNESS: This is a 57-year-old male with longstanding psychiatric history, currently lives in a senior care, was brought to emergency room for the second time on the day of admission because of vomiting, abdominal distention. The patient had a CAT scan that showed small bowel obstruction with possible stool impaction. The patient was admitted for further management. Other review of systems is negative. ALLERGIES: NO KNOWN ALLERGIES. MEDICATIONS: Reviewed and ordered as per [facility]. SOCIAL HISTORY: Positive for smoking. No EtOH or substance abuse. FAMILY HISTORY: Noncontributory. PHYSICAL EXAMINATION: GENERAL: The patient is in bed, not in any cardiopulmonary distress. VITAL SIGNS: Blood pressure 109/78, temperature 98.4, respiratory rate 20 and pulse 76. HEENT: Pupils equal, reactive to light. Normal-appearing mucosa of the conjunctivae, oropharynx and nasal membrane mucosa. NECK: Supple. No JVD, no carotid bruit. No lymph node. No thyromegaly. CHEST AND LUNGS: Bilateral symmetrical expansion. Good air exchange. No rales, no rhonchi. CARDIOVASCULAR SYSTEM: PMI not localized. S1, S2. No additional sounds. ABDOMEN: Improved distention after the patient is connected to the nasogastric tube with suctioning and the patient had 400 mL drained through suctioning of the gastric contents. The patient also had three large bowel movements as per nurseRandy. EXTREMITIES: No cyanosis, no clubbing, no edema. CENTRAL NERVOUS SYSTEM: Alert, awake, oriented x2. No neurological deficits could be appreciated. ASSESSMENT: 1. Small bowel obstruction secondary to stool impaction. 2. History of hypertension. 3. History of hepatitis C. PLAN: Continue current medications and nasogastric tube suction. GI consult and follow recommendations. Resume the patient's medications and we will give it through the nasogastric tube with clamping. Akil Cunningham MD
--- NOTE | 2018-07-06 08:24 | PN ---
DATE: 07/06/2018 LOCATION: 665, bed A. SUBJECTIVE: This 57-year-old male seen initially for GI consultation as requested by Dr. Schneider on 07/05/2018, reexamined again today without reported significant clinical changes with less complaint of abdominal pain. The patient reported to be continent of urine and stool, but had bowel movement early this morning. The entire chart is reviewed including but not limited to most recent lab and radiology study results, current and the previous medication list, current and the previous medical events and still has low hemoglobin and hematocrit, however. Today's lab results still pending and the patient reported to have low calcium, low albumin, and low total protein with normal lipase level. Results of urine culture showed gram-positive cocci. PHYSICAL EXAMINATION: GENERAL: A 57-year-old male, in his normal regular mental status, a known patient for me for sometime. VITAL SIGNS: Afebrile with pulse of 74, respiratory rate 20 to 22, blood pressure 118/72. HEENT: Showed pale, dry oral mucous membrane. Nonicteric sclerae. LUNGS: Few scattered crepitation. Decreased air entry at bases. HEART: Positive S1 and S2. ABDOMEN: Soft with mild generalized tenderness. No mass or organomegaly. No rebound tenderness or guarding. EXTREMITIES: Without edema, clubbing or cyanosis. NEUROLOGIC: No reported new neurological deficits or focal new deficits. IMPRESSION: 1. Abnormal CAT scan of the abdomen and pelvis with possible partial bowel obstruction. 2. Known history of severe constipation. 3. Diarrhea, secondary to post obstruction syndrome. 4. Re-exacerbation of peptic ulcer disease. 5. Known history of hepatitis C viral infection, history of hypertension. 6. Recurrent episode of nausea and vomiting recently as outpatient with re-exacerbation of peptic ulcer disease. 7. Positive urine culture with urinary tract infection. 8. Known history of depression, bronchial asthma, reported schizophrenia with severe anxiety syndrome. 9. Anemia, most likely secondary to chronic disease. SUGGESTIONS: 1. Continue current management. 2. IV antibiotics. 3. The patient will need endoscopic evaluation of the GI tract only when he is more stable clinically and surgical consultation to be considered. 4. We will follow up closely with you. 5. Cancer markers to be ordered. June Nguyen MD [facility] # [id number]
--- NOTE | 2018-07-06 08:30 | RAD ---
Date of service: 07/04/2018 PROCEDURE: CHEST RADIOGRAPH, 1 VIEW HISTORY: VOMITING COMPARISON: 09/17/2017 FINDINGS: LUNGS: Clear. Lung volumes shallow. PLEURA: No pneumothorax or pleural fluid seen. CARDIOVASCULAR: No aortic atherosclerotic calcification present. Normal. Thoracic aorta unfolded as before OSSEOUS STRUCTURES: Bilateral shoulder arthrosis. VISUALIZED UPPER ABDOMEN: No subdiaphragmatic free air seen. The subdiaphragmatic bowel loops are nonspecific in their appearance there is a moderate amount of gas however that is present in the small large bowel loops. OTHER FINDINGS: None. IMPRESSION: No acute cardiopulmonary pathology appreciated. Other findings as above.
[2018-07-06 08:35] LABS: BLOOD UREA NITROGEN 7 mg/dL (9-20); CALCIUM 7.9 mg/dl (8.6-10.4); GFR NON-AFRICAN AMERICAN > 60
[2018-07-06 08:36] LABS: BASO % 0.3 % (0.0-2.0); EOS # 0.1 K/uL (0.0-0.7); EOS % 1.8 % (0.0-4.0); HEMOGLOBIN 12.5 g/dL (12.0-18.0); LYMPH # 1.3 K/uL (1.0-4.3); LYMPH % 18.7 % (20.0-40.0); MEAN CELL VOLUME 90.5 fL (80.0-94.0); MEAN CORPUSCULAR HEMOGLOBIN 29.5 pg (27.0-31.0); MEAN CORPUSCULAR HGB CONC 32.7 g/dL (33.0-37.0); MEAN PLATELET VOLUME 8.8 fL (7.2-11.7); MONO # 0.8 K/uL (0.0-0.8); MONO % 12.1 % (0.0-10.0); NEUT # 4.6 K/uL (1.8-7.0); NEUT % 67.1 % (50.0-75.0); NRBC % 0.1 % (0.0-2.0); RBC 4.25 Mil/uL (4.40-5.90); RED CELL DISTRIBUTION WIDTH 15.2 % (11.5-14.5); WHITE BLOOD COUNT 6.8 K/uL (4.8-10.8)
[2018-07-06] MEDS: Multiple Vitamins Tab PO SCH (10:16)
[2018-07-06] MEDS: Pantoprazole 40 mg Susp UD NG SCH ×2 (10:16→18:34)
[2018-07-06] MEDS: LINZESS 145MCG PO SCH (10:18)
[2018-07-06] MEDS ORDERED: Peg-Electrolyte Oral Soln 4L (Golytely) PO ONE (13:00)
--- NOTE | 2018-07-06 14:14 | CP.PCM.CON ---
History of Present Illness - History of Present Illness History of Present Illness: Surgery Consult Note. Dr. Joseph 57yo M with PMHx of recurrent mechanical bowel obstructions due constipation, Schizophrenia who returns to [facility] with nausea and vomiting and decreased PO tolerance. Patient is a resident in a retirement. CT A/P obtained in ED on admission 2 days ago is consistent with probable mechanical bowel obstruction, dilated small bowel loops and large fecal load throughout the colon. Surgery consult was obtained today. At this time, patient states that he had a large bowel movement yesterday. (This is unverified by the staff and the patient is not a reliable historian due to history of schizophrenia). Patient denies any other complaints. NGT in place to wall suction. Patient states that he would like to remove the NGT and start a diet. Denies any Fevers or chills. No urinary complaints. PMHx: Mechanical bowel obstructions, Chronic Constipation, Schizophrenia PSHx: Unknown Abdominal surgery (patient denies any surgeries however, midline celiotomy incision noted) Social Hx: Lives in a retirement. Current 1/2 ppd smoker. Denies ETOH use, Denies illicit drugs NKDA Review of Systems - Review of Systems All systems: reviewed and no additional remarkable complaints except - Constitutional Constitutional: As Per HPI. absent: Chills Past Patient History - Infectious Disease Hx of Infectious Diseases: None - Past Medical History & Family History Past Medical History?: Yes Past Family History: Reviewed and not pertinent - Past Social History Smoking Status: Current Some Days Smoker Alcohol: None Drugs: Denies Home Situation {Lives}: Other (Lives in retirement) - CARDIAC Hx Cardiac Disorders: Yes Hx Hypertension: Yes - PULMONARY Hx Respiratory Disorders: Yes Hx Asthma: Yes Hx Bronchitis: Yes - NEUROLOGICAL Hx Neurological Disorder: Yes Other/Comment: According to chart Pt has Neuro disorder , Pt is poor historian - HEENT Hx HEENT Problems: No - RENAL Hx Chronic Kidney Disease: No - ENDOCRINE/METABOLIC Hx Endocrine Disorders: No - HEMATOLOGICAL/ONCOLOGICAL Hx Blood Disorders: Yes Hx Cirrhosis: Yes (as per previous triage) Hx Hepatitis C: Yes (as per previous triage) Other/Comment: ascitis - INTEGUMENTARY Hx Dermatological Problems: No - MUSCULOSKELETAL/RHEUMATOLOGICAL Hx Musculoskeletal Disorders: No Hx Falls: No - GASTROINTESTINAL Hx Gastrointestinal Disorders: Yes Hx Constipation: Yes Hx Gastroesophageal Reflux: Yes Hx Vomiting: Yes - GENITOURINARY/GYNECOLOGICAL Hx Genitourinary Disorders: No - PSYCHIATRIC Hx Psychophysiologic Disorder: Yes Hx Depression: Yes Hx Schizophrenia: Yes Hx Substance Use: No - SURGICAL HISTORY Hx Surgeries: Yes Other/Comment: abdominal surgery - ANESTHESIA Hx Anesthesia: Yes Hx Anesthesia Reactions: No Meds Allergies/Adverse Reactions: Allergies Allergy/AdvReac Type Severity Reaction Status Date / Time No Known Allergies Allergy Verified 07/04/18 13:04 - Medications Medications: Current Medications Aspirin (Aspirin) 325 mg PO DAILY [facility] Last Admin: 07/06/18 10:16 Dose: 325 mg Bisacodyl (Dulcolax) 5 mg PO BID PRN Bisacodyl (Dulcolax) 10 mg PO ONCE ONE Stop: 07/06/18 17:01 Clozapine (Clozaril) 100 mg PO BID [facility] Last Admin: 07/06/18 10:16 Dose: 100 mg Famotidine (Pepcid) 20 mg PO BID [facility] Last Admin: 07/06/18 10:16 Dose: 20 mg Folic Acid (Folic Acid) 1 mg PO DAILY [facility] Last Admin: 07/06/18 10:47 Dose: 1 mg Home Med (Patient's Own Medication) 1 tab PO DAILY [facility] Stop: 07/14/18 10:01 Last Admin: 07/06/18 10:18 Dose: 1 tab Dextrose/Sodium Chloride (Dextrose 5%/0.9% Ns 1000 Ml) 1,000 mls @ 100 mls/hr IV .Q10H [facility] Last Admin: 07/06/18 01:36 Dose: 100 mls/hr Ipratropium [place] (Atrovent) 0.5 mg IH RQID [facility] Lactulose (Enulose) 10 gm PO DAILY [facility] Last Admin: 07/06/18 10:15 Dose: 10 gm Multivitamins (Hexavitamin) 1 tab PO DAILY [facility] Last Admin: 07/06/18 10:16 Dose: 1 tab Pantoprazole Sodium (Protonix Susp) 40 mg NG BID [facility] Last Admin: 07/06/18 10:16 Dose: 40 mg Propranolol HCl (Inderal) 10 mg PO TID [facility] Last Admin: 07/06/18 10:16 Dose: 10 mg Rosuvastatin Calcium (Crestor) 10 mg PO [facility] Last Admin: 07/05/18 21:25 Dose: 10 mg Thiamine HCl (Vitamin B1 Tab) 100 mg PO DAILY [facility] Last Admin: 07/06/18 10:16 Dose: 100 mg Physical Exam - Constitutional Appears: Well, Non-toxic, No Acute Distress - Head Exam Head Exam: ATRAUMATIC, NORMAL INSPECTION, NORMOCEPHALIC - Eye Exam Eye Exam: EOMI, Normal appearance. absent: Scleral icterus - ENT Exam ENT Exam: Mucous Membranes Moist - Respiratory Exam Respiratory Exam: NORMAL BREATHING PATTERN. absent: Accessory Muscle Use, Respiratory Distress - Cardiovascular Exam Cardiovascular Exam: RRR. absent: JVD - GI/Abdominal Exam GI & Abdominal Exam: Soft. absent: Firm, Guarding, Hernia, Tenderness Additional comments: Mildly distended but soft. Non-tender. - Extremities Exam Extremities exam: Positive for: normal inspection. Negative for: calf tenderness - Back Exam Back exam: NORMAL INSPECTION - Neurological Exam Neurological exam: Alert, Oriented x3 - Psychiatric Exam Psychiatric exam: Flat Affect - Skin Skin Exam: Dry, Intact, Normal Color, Warm Results - Vital Signs Recent Vital Signs: Last Vital Signs Temp 98.1 F 07/06/18 08:27 Pulse 66 07/06/18 08:27 Resp 20 07/06/18 08:27 BP 124/77 07/06/18 08:27 Pulse Ox 100 07/06/18 08:27 - Labs Result Diagrams: 07/06/18 08:15 07/06/18 08:15 Labs: Laboratory Results - last 24 hr 07/05/18 07/06/18 07/06/18 13:55 08:15 08:15 WBC 6.8 RBC 4.25 L Hgb 12.5 Hct 38.4 MCV 90.5 MCH 29.5 MCHC 32.7 L RDW 15.2 H Plt Count 181 MPV 8.8 Neut % (Auto) 67.1 Lymph % (Auto) 18.7 L [place] % (Auto) 12.1 H Eos % (Auto) 1.8 Baso % (Auto) 0.3 Neut # (Auto) 4.6 Lymph # (Auto) 1.3 [place] # (Auto) 0.8 Eos # (Auto) 0.1 Baso # (Auto) 0.0 Sodium 140 141 Potassium 4.0 3.7 Chloride 109 H 106 Carbon Dioxide 22 25 Anion Gap 12 13 BUN 13 7 L Creatinine 0.9 1.0 Est GFR ( Amer) > 60 > 60 Est GFR (Non-Af Amer) > 60 > 60 Random Glucose 79 89 Calcium 6.8 L 7.9 L Magnesium 2.1 Assessment & Plan - Assessment and Plan (Free Text) Assessment: 57yo M with PMHx of schizophrenia and chronic constipation here with possible mechanical bowel obstruction w fecal impaction. Plan: - Maintain NGT - Repeat CT in the morning - If Fecal Impaction still noted on CT, will plan for OR fecal disimpaction tomorrow afternoon, 07/07 - Milk of magnesia to attempt inducing return of bowel function - NPO Further recs as per Dr. Opal Juares PGY2 surgery
[2018-07-06] MEDS ORDERED: Bisacodyl 5mg EC Tab PO ONE (17:00)
[2018-07-06] MEDS ORDERED: Magnesium Hydroxide Susp 30 ml UD PO ONE (17:21)
--- NOTE | 2018-07-06 20:06 | PN ---
DATE: 07/06/2018 LOCATION: 665, bed A. SUBJECTIVE: This is a 57-year-old male, seen and examined early in rounds without significant clinical changes, still incontinent of urine and stool, was initially scheduled for potential colonoscopy tomorrow. However, due to the patient's clinical presentation and reported episodes of nausea and vomiting, colonoscopy was canceled until the patient is more stable clinically. Further recommendation to follow until the patient is more stable. June Nguyen MD
[2018-07-06] MEDS ORDERED: Ipratropium 0.02% Inhal Soln (0.5 mg/2.5 ml) UD IH SCH (22:45)
[2018-07-07] MEDS: Dextrose 5%/0.9% NS 1,000 ML IV SCH ×4 (00:28→21:30)
--- NOTE | 2018-07-07 00:56 | PN ---
DATE: 07/06/2018 DAILY PROGRESS NOTE SUBJECTIVE: The patient is seen today, 07/06/2018. He is still having nasogastric tube with significant drainage through low intermittent suction. PHYSICAL EXAMINATION: VITAL SIGNS: Blood pressure 137/84, temperature 98.8, respiratory rate 20 and pulse 68. HEENT: Pupils are equal and reactive to light. Normal-appearing mucosa of the conjunctivae, oropharynx and nasal membrane mucosa. NECK: Supple. No JVD. No carotid bruit. No lymph node. No thyromegaly. CHEST AND LUNGS: Bilateral symmetrical expansion. Good air exchange. No rales. No rhonchi. CARDIOVASCULAR SYSTEM: PMI not localized. S1 and S2. No additional sounds. ABDOMEN: Decreased bowel sounds. No tenderness, no organomegaly and no masses. EXTREMITIES: No cyanosis, no clubbing, and no edema. CENTRAL NERVOUS SYSTEM: Alert, awake, and oriented x2 and no neurological deficit could be appreciated. ASSESSMENT: Small bowel obstruction, stool impaction, hypertension, smoker, and chronic obstructive pulmonary disease. PLAN: We will continue nasogastric suction, surgical consult and the patient for repeated CAT scan. If still stool impaction, the patient will be taken to OR for disimpaction and continue current low intermittent suction for now and continue IV fluids. Akil Cunningham MD
[2018-07-07 07:20] LABS: BASO % 0.6 % (0.0-2.0); EOS # 0.2 K/uL (0.0-0.7); EOS % 2.5 % (0.0-4.0); HEMOGLOBIN 12.2 g/dL (12.0-18.0); LYMPH # 1.7 K/uL (1.0-4.3); LYMPH % 24.5 % (20.0-40.0); MEAN CELL VOLUME 89.6 fL (80.0-94.0); MEAN CORPUSCULAR HEMOGLOBIN 29.8 pg (27.0-31.0); MEAN CORPUSCULAR HGB CONC 33.2 g/dL (33.0-37.0); MEAN PLATELET VOLUME 8.9 fL (7.2-11.7); MONO # 0.8 K/uL (0.0-0.8); MONO % 11.4 % (0.0-10.0); NEUT # 4.2 K/uL (1.8-7.0); NRBC % 0.2 % (0.0-2.0); RBC 4.09 Mil/uL (4.40-5.90); RED CELL DISTRIBUTION WIDTH 14.5 % (11.5-14.5); WHITE BLOOD COUNT 6.8 K/uL (4.8-10.8)
[2018-07-07 07:34] LABS: INR 1.4; PROTHROMBIN TIME 14.8 SECONDS (9.7-12.2)
[2018-07-07 07:40] LABS: ALB/GLOB RATIO 1.3 (1.0-2.1); ALBUMIN 2.7 g/dL (3.5-5.0); ALT/SGPT 26 U/L (21-72); AST/SGOT 21 U/L (17-59); BLOOD UREA NITROGEN 4 mg/dL (9-20); CALCIUM 7.3 mg/dl (8.6-10.4); GFR NON-AFRICAN AMERICAN > 60
--- NOTE | 2018-07-07 09:23 | CP.PCM.PN ---
Subjective - Date & Time of Evaluation Date of Evaluation: 07/07/18 Time of Evaluation: 07:00 - Subjective Subjective: Surgery Progress note. Dr. Joseph Pt seen and examined at bedside. No acute events overnight. No N/V/D. Denies any abdominal pain. Abd soft. CT Abd this morning. Objective - Vital Signs/Intake and Output Vital Signs (last 24 hours): Temp Pulse Resp BP Pulse Ox 98.5 F 61 20 121/77 99 07/07/18 08:53 07/07/18 08:53 07/07/18 08:53 07/07/18 08:53 07/07/18 08:53 Intake and Output: 07/07/18 07/07/18 06:59 18:59 Intake Total 1600 Output Total 650 Balance 950 - Medications Medications: Current Medications Aspirin (Aspirin) 325 mg PO DAILY [facility] Last Admin: 07/06/18 10:16 Dose: 325 mg Bisacodyl (Dulcolax) 5 mg PO BID PRN Bisacodyl (Dulcolax) 10 mg CO DAILY [facility] Clozapine (Clozaril) 100 mg PO BID [facility] Last Admin: 07/06/18 18:32 Dose: 100 mg Famotidine (Pepcid) 20 mg PO BID [facility] Last Admin: 07/06/18 18:28 Dose: 20 mg Folic Acid (Folic Acid) 1 mg PO DAILY [facility] Last Admin: 07/06/18 10:47 Dose: 1 mg Home Med (Patient's Own Medication) 1 tab PO DAILY [facility] Stop: 07/14/18 10:01 Last Admin: 07/06/18 10:18 Dose: 1 tab Dextrose/Sodium Chloride (Dextrose 5%/0.9% Ns 1000 Ml) 1,000 mls @ 100 mls/hr IV .Q10H [facility] Last Admin: 07/07/18 03:00 Dose: Not Given Ipratropium [place] (Atrovent) 0.5 mg IH RQID [facility] Last Admin: 07/07/18 03:01 Dose: Not Given Lactulose (Enulose) 10 gm PO DAILY [facility] Last Admin: 07/06/18 10:15 Dose: 10 gm Multivitamins (Hexavitamin) 1 tab PO DAILY [facility] Last Admin: 07/06/18 10:16 Dose: 1 tab Pantoprazole Sodium (Protonix Susp) 40 mg NG BID [facility] Last Admin: 07/06/18 18:34 Dose: 40 mg Propranolol HCl (Inderal) 10 mg PO TID [facility] Last Admin: 07/06/18 18:30 Dose: 10 mg Rosuvastatin Calcium (Crestor) 10 mg PO HS [facility] Last Admin: 07/06/18 22:04 Dose: 10 mg Senna/Docusate Sodium (Senokot S 50 Mg-8.6 Mg) 1 tab PO BID [facility] Thiamine HCl (Vitamin B1 Tab) 100 mg PO DAILY [facility] Last Admin: 07/06/18 10:16 Dose: 100 mg - Labs Labs: 07/07/18 07:06 07/07/18 07:06 PT 14.8 SECONDS (9.7-12.2) H 07/07/18 07:06 INR 1.4 07/07/18 07:06 APTT 31.0 SECONDS (21-34) 07/07/18 07:06 - Constitutional Appears: Well, No Acute Distress - Head Exam Head Exam: ATRAUMATIC, NORMAL INSPECTION, NORMOCEPHALIC - Eye Exam Eye Exam: EOMI, Normal appearance. absent: Scleral icterus - ENT Exam ENT Exam: Mucous Membranes Moist - Respiratory Exam Respiratory Exam: NORMAL BREATHING PATTERN. absent: Accessory Muscle Use, Respiratory Distress - Cardiovascular Exam Cardiovascular Exam: absent: JVD - GI/Abdominal Exam GI & Abdominal Exam: Distended (Mild distention), Soft. absent: Guarding, Tenderness - Extremities Exam Extremities Exam: Normal Inspection. absent: Calf Tenderness - Neurological Exam Neurological Exam: Alert, Awake, Oriented x3 - Psychiatric Exam Psychiatric exam: Flat Affect - Skin Skin Exam: Dry, Intact, Normal Color, Warm Assessment and Plan - Assessment and Plan (Free Text) Assessment: 57yo M with PMHx of schizophrenia and chronic constipation here with possible mechanical bowel obstruction w fecal impaction. - Repeat CT A/P this morning noted. Plan: - No plans for OR fecal disimpaction - Patient had BMs as reported by nursing staff - Continue Bowel Regimen and monitor for function - Will obtain UGIS w small bowel follow through - Maintain NGT until UGIS shows no signs of obstruction Further recs as per Dr. Opal Juares PGY2 surgery
--- NOTE | 2018-07-07 10:14 | CT ---
Date of service: 07/07/2018 PROCEDURE: CT Abdomen and Pelvis without intravenous contrast HISTORY: fecal impaction COMPARISON: 07/04/2018 TECHNIQUE: Without contrast.. Contrast dose: 0 Radiation dose: Total exam DLP = 341.98 mGy-cm. This CT exam was performed using one or more of the following dose reduction techniques: Automated exposure control, adjustment of the mA and/or kV according to patient size, and/or use of iterative reconstruction technique. FINDINGS: LOWER THORAX: Trace bilateral pleural effusion. Nasogastric tube traverses the thoracic esophagus to the stomach. Mild cardiomegaly. LIVER: Normal size, contour and attenuation. Few small rounded nonspecific low-attenuation masses are identified. The largest of these is in the medial segment of the left hepatic lobe and measures approximately 12 mm in diameter. This is unchanged compared to the previous examination. No biliary dilatation. GALLBLADDER AND BILE DUCTS: Unremarkable. PANCREAS: Unremarkable. No gross lesion or ductal dilatation. SPLEEN: Unremarkable. ADRENALS: Unremarkable. No mass. KIDNEYS AND URETERS: Unremarkable. No hydronephrosis. No solid mass. VASCULATURE: Unremarkable. No aortic aneurysm. There is atherosclerotic calcification of the abdominal aorta. BOWEL: No evidence of bowel obstruction. Large amount of retained feces. The numerous dilated small bowel loops seen on prior examination have resolved with minimal dilatation of few ileal loops remaining. APPENDIX: Not identified. PERITONEUM: Unremarkable. No free fluid. No free air. LYMPH NODES: Unremarkable. No enlarged lymph nodes. BLADDER: Nondistended REPRODUCTIVE: Prostate BONES: No acute fracture. OTHER FINDINGS: None. IMPRESSION: No evidence of bowel obstruction. Large amount of retained feces. Nonspecific small rounded low-attenuation lesions in the liver. Largest 12 mm. Nasogastric tube. Trace bilateral pleural effusion. Mild cardiomegaly.
[2018-07-07] MEDS: Multiple Vitamins Tab PO SCH (10:17)
[2018-07-07] MEDS: Docusate-Senna 50 mg-8.6 mg Tab PO SCH ×2 (10:18→17:21)
[2018-07-07] MEDS: Pantoprazole 40 mg Susp UD NG SCH ×2 (10:18→17:21)
[2018-07-07] MEDS: LINZESS 145MCG PO SCH (10:35)
[2018-07-07] MEDS ORDERED: Barium Sulfate for Susp 96% w/w 176g Bottle PR ONE (11:43)
--- NOTE | 2018-07-07 15:58 | PN ---
DATE: 07/07/2018 LOCATION: 665, bed A. SUBJECTIVE: This is a 57-year-old male seen and examined in rounds without significant clinical changes, is still on NG tube with gastric content suction, had CAT scan of the abdomen and pelvis today indicative of no evidence of bowel obstruction, but does amount to retained fecal material with trace bilateral pleural effusion and mild congestion. No reported active bleeding, chest pain, palpitation or significant increased shortness of breath. CBC today reported to be within normal limits with PT 14.8. Blood glucose level 237, calcium 7.3. Low albumin, low total protein but increased CEA level to 5.9 with CA 19-9 to 40.5. PHYSICAL EXAMINATION: GENERAL: A 57-year-old male. VITAL SIGNS: Afebrile with pulse 60, respiratory rate 20-22, blood pressure 118/72. HEENT: Showed pale, dry oral mucous membrane. Nonicteric sclerae. LUNGS: Few scattered crepitation. Decreased air entry at bases. HEART: Positive S1 and S2. ABDOMEN: Soft with mild generalized tenderness and mild distention. NG tube is still in place . Bowel sounds are hypoactive. EXTREMITIES: Without significant clubbing, cyanosis or edema. NEUROLOGIC: No reported new neurological deficits, sensory, or motor. IMPRESSION: 1. Fecal impaction most likely. 2. Re-exacerbation of peptic ulcer disease. 3. Known history of hepatitis C viral infection, hypertension, depression, bronchial asthma with reported schizophrenia. 4. Anemia most likely secondary to above. 5. Elevated CEA as well as CA 19-9 ruled out possible colon carcinoma. SUGGESTIONS: 1. Agree with your plan. 2. The patient will need colonoscopy when he is more stable clinically. 3. Further recommendation to follow. June Nguyen MD
--- NOTE | 2018-07-07 16:47 | RAD ---
Date of service: 07/07/2018 PROCEDURE: Small bowel series HISTORY: obstruction COMPARISON: Not available TECHNIQUE: A administrative sales assistant radiograph of the abdomen demonstrates an unremarkable bowel gas pattern. There is a large amount of retained stool. Small bowel series was performed with oral administration of low-density barium suspension. Multiple sequential overhead films were acquired during transit of the barium to the cecum. FINDINGS: There is mild dilatation of the small bowel up to 3 cm diameter. There is no obstruction. No filling defects are identified. There is no loop separation or segmentation. One the 1 hr 30 min overhead film, there is a loop of small bowel in the mid right abdomen which shows a moderate length with narrowed lumen. This could be artifactual but the possibility of focally narrowed small bowel such as in inflammatory bowel disease should be considered. No other sub segments are appreciated elsewhere. The fluoroscopic spot films fail to demonstrate distension of the terminal ileum suggesting that this also may represent a disease segment of small bowel.. Please note that there is adequate opacification of the colon at 2 hr post administration. IMPRESSION: No evidence of mechanical small-bowel obstruction. There are at least 2 segments of small bowel, 1 of which is the terminal ileum, which demonstrate narrowing raising the possibility of inflammatory bowel disease. No evidence of sinus tract or fistula formation. No additional abnormality.
[2018-07-08] MEDS ORDERED: Phytonadione 10 mg/ml Inj (Adult) SC ONE (07:00)
--- NOTE | 2018-07-08 07:46 | PN ---
DATE: 07/08/2018 LOCATION: 665, bed A. SUBJECTIVE: This is a 57-year-old male, seen and examined in rounds without significant clinical changes, had NG tube with reported dark greenish drainage but without reported active GI bleeding, claim passing gas but no reported complete bowel movement. The entire chart is reviewed including but not limited to the most recent lab and radiology study results, current and the previous medication list and the patient has small bowel x-ray showed no evidence of mechanical small bowel obstruction with narrowing of the terminal ileum raising the possibility of inflammatory bowel disease. No reported active bleeding, chest pain, significant shortness of breath or palpitation. Most recently done lab results showed normal CBC with mildly increased PT to 14.8 with increased blood glucose level but low calcium, low albumin, low total protein with increased CEA level. Today's lab results still pending. Period of dyspepsia and nausea with vomiting before reported. PHYSICAL EXAMINATION: GENERAL: A 57 year old male. VITAL SIGNS: Afebrile with pulse of 68, respiratory rate 20 to 22, blood pressure of 116/64. HEENT: Showed pale, dry oral mucous membrane. Nonicteric sclerae. LUNGS: Few scattered crepitation. Decreased air entry at bases. HEART: Positive S1 and S2. ABDOMEN: Soft with mild generalized tenderness. No mass or organomegaly. No rebound tenderness or guarding. EXTREMITIES: Without significant clubbing, cyanosis or edema. NEUROLOGIC: No reported new neurological deficits, sensory or motor. On record, the patient denied any abdominal pain and no early reported nausea, vomiting this morning. IMPRESSION: 1. Intermittent period of partial bowel obstruction with fecal impaction most likely. 2. Known history of schizophrenia. 3. Re-exacerbation of peptic ulcer disease. 4. Elevated CEA level. The possibility of occult gastrointestinal malignancy was raised as well as elevated CEA 19-9. 5. Known history of hypertension, schizophrenia, bronchial asthma, depression with hepatitis C viral infection, by history. SUGGESTIONS: 1. Continue current management. 2. Due to the abnormal radiology study results, the patient is to be prepared for colonoscopy after adequate preparation. 3. Further recommendation to follow. June Nguyen MD [facility] # [id number]
--- NOTE | 2018-07-08 09:32 | CP.PCM.PN ---
Subjective - Date & Time of Evaluation Date of Evaluation: 07/08/18 Time of Evaluation: 09:30 - Subjective Subjective: Surgery Progress note. Dr. Joseph Pt seen and examined at bedside this morning. Patient currently sitting up eating a regular breakfast. Denies any N/V. Reports a large BM yesterday evening. No new complaints. No other complaints. UGI Small Bowel series completed yesterday with no signs of bowel obstruction. Does have possibly two areas of small bowel narrowing. Objective - Vital Signs/Intake and Output Vital Signs (last 24 hours): Temp Pulse Resp BP Pulse Ox 97.6 F 64 20 108/63 100 07/08/18 07:00 07/08/18 07:00 07/08/18 07:00 07/08/18 07:00 07/08/18 07:00 - Medications Medications: Current Medications Aspirin (Aspirin) 325 mg PO DAILY [facility] Last Admin: 07/07/18 10:18 Dose: 325 mg Bisacodyl (Dulcolax) 5 mg PO BID PRN Bisacodyl (Dulcolax) 10 mg [place] DAILY [facility] Last Admin: 07/07/18 10:38 Dose: 10 mg Bisacodyl (Dulcolax) 10 mg PO ONCE ONE Stop: 07/09/18 17:01 Clozapine (Clozaril) 100 mg PO BID [facility] Last Admin: 07/07/18 17:21 Dose: 100 mg Famotidine (Pepcid) 20 mg PO BID [facility] Last Admin: 07/07/18 17:21 Dose: 20 mg Folic Acid (Folic Acid) 1 mg PO DAILY [facility] Last Admin: 07/07/18 10:30 Dose: 1 mg Home Med (Patient's Own Medication) 1 tab PO DAILY [facility] Stop: 07/14/18 10:01 Last Admin: 07/07/18 10:35 Dose: 1 tab Ipratropium [place] (Atrovent) 0.5 mg IH RQID [facility] Last Admin: 07/07/18 03:01 Dose: Not Given Lactulose (Enulose) 10 gm PO DAILY [facility] Last Admin: 07/07/18 10:19 Dose: 10 gm Multivitamins (Hexavitamin) 1 tab PO DAILY [facility] Last Admin: 07/07/18 10:17 Dose: 1 tab Pantoprazole Sodium (Protonix Susp) 40 mg NG BID [facility] Last Admin: 07/07/18 17:21 Dose: 40 mg Polyethylene Glycol/Electrolytes (Golytely) 4,000 ml PO ONCE ONE Stop: 07/09/18 08:01 Propranolol HCl (Inderal) 10 mg PO TID [facility] Last Admin: 07/07/18 17:21 Dose: 10 mg Rosuvastatin Calcium (Crestor) 10 mg PO HS [facility] Last Admin: 07/07/18 21:30 Dose: 10 mg Senna/Docusate Sodium (Senokot S 50 Mg-8.6 Mg) 1 tab PO BID [facility] Last Admin: 07/07/18 17:21 Dose: 1 tab Thiamine HCl (Vitamin B1 Tab) 100 mg PO DAILY [facility] Last Admin: 07/07/18 10:18 Dose: 100 mg - Labs Labs: 07/07/18 07:06 07/07/18 07:06 PT 14.8 SECONDS (9.7-12.2) H 07/07/18 07:06 INR 1.4 07/07/18 07:06 APTT 31.0 SECONDS (21-34) 07/07/18 07:06 - Constitutional Appears: Well, Non-toxic, No Acute Distress - Head Exam Head Exam: ATRAUMATIC, NORMAL INSPECTION, NORMOCEPHALIC - Eye Exam Eye Exam: EOMI, Normal appearance. absent: Scleral icterus - ENT Exam ENT Exam: Mucous Membranes Moist - Respiratory Exam Respiratory Exam: NORMAL BREATHING PATTERN. absent: Accessory Muscle Use, Respiratory Distress - GI/Abdominal Exam GI & Abdominal Exam: Soft. absent: Firm, Guarding, Tenderness, Rebound Additional comments: Mild distention noted. - Extremities Exam Extremities Exam: Normal Inspection - Neurological Exam Neurological Exam: Alert, Awake Assessment and Plan - Assessment and Plan (Free Text) Assessment: 57yo M with PMHx of schizophrenia and chronic constipation here with possible mechanical bowel obstruction w fecal impaction, now improved. - UGIS w small bowel follow through completed yesterday with no evidence of bowel obstruction. However, he dose have possibly two areas of small intestine narrowing which may be inflammatory bowel disease. Plan: - f/u GI recs - No further general surgery intervention warranted at this time - Continue on Bowel regimen Further recs as per Dr. Opal Juares PGY2 surgery
[2018-07-08] MEDS: Multiple Vitamins Tab PO SCH (10:11)
[2018-07-08] MEDS: Docusate-Senna 50 mg-8.6 mg Tab PO SCH ×2 (10:11→17:46)
[2018-07-08] MEDS: Pantoprazole 40 mg Susp UD NG SCH ×2 (10:12→17:46)
[2018-07-08] MEDS: LINZESS 145MCG PO SCH (10:16)
[2018-07-08 11:56] LABS: ALB/GLOB RATIO 1.2 (1.0-2.1); ALBUMIN 2.8 g/dL (3.5-5.0); ALT/SGPT 27 U/L (21-72); AST/SGOT 18 U/L (17-59); BLOOD UREA NITROGEN 9 mg/dL (9-20); GFR NON-AFRICAN AMERICAN > 60
--- NOTE | 2018-07-09 07:53 | PN ---
DATE: 07/09/2018 LOCATION: 665, bed A. SUBJECTIVE: This 57-year-old male seen and examined in rounds early this morning without significant clinical changes or reported active bleeding. Her NG tube connected to suction before. The patient reported recent bowel movement but no reported active bleeding. Surgical reevaluation was seen. Most recent lab results, current and the previous medication lists were reviewed and today's lab results still pending. However, the patient reported normal CBC before but elevated CEA with low albumin, low total protein and low calcium. PHYSICAL EXAMINATION: GENERAL: A 57-year-old male awake. VITAL SIGNS: Afebrile with pulse of 70, respiratory rate 20 to 22, blood pressure of 110/64. HEENT: Showed dry oral mucous membrane. Nonicteric sclerae. LUNGS: Few scattered crepitation. Decreased air entry at bases. HEART: Positive S1 and S2. ABDOMEN: Soft. Bowel sounds are present. No mass or organomegaly. No rebound tenderness or guarding. EXTREMITIES: Without significant clubbing or cyanosis, but mild edematous changes with evidence of muscle wasting syndrome. NEUROLOGIC: No reported new neurological deficits, sensory or motor. IMPRESSION: 1. Intermittent partial bowel obstruction, most likely related to narrowed endpoint in the small and probably large bowel. 2. To rule out occult lower gastrointestinal malignancy with elevated CEA. 3. Recurrent episode of fecal impaction. The patient will need colonoscopy with disimpaction, most likely. 4. Known history of but not limited to bronchial asthma, depression, schizophrenia, hypertension, hepatitis C viral infection, by history. SUGGESTIONS: 1. Continue current management. 2. The patient for colonoscopy after adequate and aggressive preparation. 3. Further recommendation to follow and continue current management. June Nguyen MD
[2018-07-09] MEDS ORDERED: Peg-Electrolyte Oral Soln 4L (Golytely) PO ONE (08:00)
[2018-07-09 08:05] LABS: BASO % 0.6 % (0.0-2.0); EOS # 0.1 K/uL (0.0-0.7); EOS % 1.8 % (0.0-4.0); HEMOGLOBIN 12.3 g/dL (12.0-18.0); LYMPH # 1.5 K/uL (1.0-4.3); LYMPH % 24.6 % (20.0-40.0); MEAN CORPUSCULAR HEMOGLOBIN 30.2 pg (27.0-31.0); MEAN PLATELET VOLUME 9.3 fL (7.2-11.7); MONO # 0.6 K/uL (0.0-0.8); MONO % 9.2 % (0.0-10.0); NEUT # 3.9 K/uL (1.8-7.0); NEUT % 63.8 % (50.0-75.0); RBC 4.07 Mil/uL (4.40-5.90); RED CELL DISTRIBUTION WIDTH 14.9 % (11.5-14.5)
[2018-07-09 08:13] LABS: INR 1.1; PROTHROMBIN TIME 12.5 SECONDS (9.7-12.2)
[2018-07-09 08:36] LABS: ALB/GLOB RATIO 1.2 (1.0-2.1); ALBUMIN 2.9 g/dL (3.5-5.0); ALT/SGPT 28 U/L (21-72); AST/SGOT 21 U/L (17-59); BLOOD UREA NITROGEN 13 mg/dL (9-20); CALCIUM 7.9 mg/dl (8.6-10.4); GFR NON-AFRICAN AMERICAN > 60
[2018-07-09] MEDS: Multiple Vitamins Tab PO SCH (09:42)
[2018-07-09] MEDS: Docusate-Senna 50 mg-8.6 mg Tab PO SCH ×2 (09:42→17:52)
[2018-07-09] MEDS: Pantoprazole 40 mg Susp UD NG SCH ×2 (09:43→17:52)
[2018-07-09] MEDS: LINZESS 145MCG PO SCH (09:48)
--- NOTE | 2018-07-09 13:10 | PN ---
DATE: 07/08/2018 SUBJECTIVE: He was tolerating diet, slight distention of the abdomen, stated that he moved his bowel. PHYSICAL EXAMINATION: VITAL SIGNS: Blood pressure 100/60, temperature 98.6, respiratory rate 20 and pulse 65. HEENT: Pupils equal, reactive to light. Normal-appearing mucosa of the conjunctivae. NECK: Supple. No JVD. No carotid bruit. No lymph node. No thyromegaly. CHEST AND LUNGS: Bilateral symmetrical expansion. Good air exchange. No rales, no rhonchi. CARDIOVASCULAR SYSTEM: PMI not localized. S1, S2. No additional sounds. ABDOMEN: Normoactive bowel sounds. No tenderness, no organomegaly. No masses. EXTREMITIES: No cyanosis, no clubbing, no edema. CENTRAL NERVOUS SYSTEM: Alert, awake, oriented x2. No neurological deficit could be appreciated. ASSESSMENT: Small bowel obstruction, possible inflammatory bowel disease as seen in the small bowel series, hypertension. PLAN: Continue current management and follow GI and surgical recommendations. If the patient continued to improve, we will discharge to follow with GI as an outpatient. Akil Cunningham MD
[2018-07-09] MEDS ORDERED: Bisacodyl 5mg EC Tab PO ONE (17:00)
--- NOTE | 2018-07-09 19:17 | PN ---
DATE: 07/07/2018 SUBJECTIVE: The patient was seen on 07/07/2018. He had an upper GI series ordered by Surgery and diet was advanced. PHYSICAL EXAMINATION: VITAL SIGNS: Blood pressure 121/77, temperature 98.5, respiratory rate 20, and pulse 61. HEENT: Pupils equal, reactive to light. Normal-appearing mucosa of the conjunctivae, oropharynx, and nasal membrane mucosa. NECK: Supple. No JVD, no carotid bruit. No lymph nodes. No thyromegaly. CHEST AND LUNGS: Bilateral symmetrical expansion. Good air exchange. No rales, no rhonchi. CARDIOVASCULAR SYSTEM: PMI not localized. S1, S2. No additional sounds. ABDOMEN: Normoactive bowel sounds. No tenderness, no organomegaly. No masses. EXTREMITIES: No cyanosis, no clubbing, no edema. CENTRAL NERVOUS SYSTEM: Alert, awake, oriented x2. No neurological deficit could be appreciated. ASSESSMENT: Small bowel obstruction secondary to stool impaction which improved by nasogastric tube suction as well as laxatives. Hypertension, smoker, chronic obstructive pulmonary disease. Discussed the patient's condition with Surgery and the patient is for discharge. The patient to advance diet and follow recommendation of Surgery and GI. Akil Cunningham MD
--- NOTE | 2018-07-10 07:46 | CON ---
DATE: 07/05/[address] Ngueyn to Dr. Akil Cunningham. HISTORY OF PRESENT ILLNESS: This is a 57-year-old male, seen for GI consultation as requested by the admitting MD on 07/05/2018. The entire chart is reviewed including but not limited to most recent lab and radiology study results, current and the previous medication list, current and the previous medical events, allergy to medication list as well as all the available current and the previous medical records. Case discussed at length with the admitting MD. Case discussed at length with the medical staff before and immediately after my GI consultation and medical examination on 07/05/2018. This is a 57-year-old male, very well-known case for me from previous admissions and the office visits, readmitted to the hospital with a complaint of recurrent nausea and vomiting, constipation, postprandial abdominal distention with reported dizziness. No reported chills or fever. No chest pain, palpitation or significant shortness of breath. It has to be mentioned that the patient is a poor historian and most of the information was obtained from a previous medical records, office visits. PAST MEDICAL HISTORY: Including mainly but not limited to schizophrenia, chronic constipation, peptic ulcer disease, reported intermittent partial bowel obstruction. The patient had colonoscopy with retained fecal material few years ago, was incomplete. CURRENT MEDICATIONS: Medication lists were reviewed. ALLERGIES TO MEDICATIONS: UNCLEAR. SOCIAL HISTORY: Positive for cigarette smoking but no recent history of alcohol intake. FAMILY HISTORY: Unknown. REVIEW OF SYSTEMS: The patient denies any actual chest pain, palpitation or significant shortness of breath. LABORATORY DATA: After being admitted to the hospital, initial blood workup showed hemoglobin 10.8, hematocrit 32.7, with low potassium 3.3, CO2 content of 19 indicative of metabolic acidosis with blood glucose level of 86. Liver function tests reported to be within normal limit but with low total protein of 5. Low albumin 2.8. PHYSICAL EXAMINATION: GENERAL: A 57-year-old male awake, alert. VITAL SIGNS: Afebrile with pulse of 86, respiratory rate 18-20 with blood pressure 130/82. HEENT: Showed pale, dry oral mucous membrane. Nonicteric sclerae. LUNGS: Few scattered crepitation. Decreased air entry at bases. HEART: Positive S1 and S2. LYMPH NODES: No lymphadenitis, no lymphadenopathy. ABDOMEN: Soft with mild to moderate distention with hypoactive bowel sounds. No mass or organomegaly. No rebound tenderness or guarding. RECTAL: The patient refused. EXTREMITIES: Without significant clubbing, cyanosis or edema. NEUROLOGIC: No reported new neurological deficits, sensory or motor. No reported new focal deficits. IMPRESSION: 1. Recurrent intermittent partial bowel obstruction. 2. Rule out fecal impaction. 3. Anemia most likely secondary to chronic disease. However, the possibility of gastrointestinal blood loss, upper versus lower, should be ruled out, to rule out occult gastrointestinal malignancy. 4. Past medical history as mentioned above. 5. Metabolic acidosis of unclear etiology with malnutrition, hypoalbuminemia, hypoproteinemia. SUGGESTIONS: 1. Agree with your plan. 2. Sectional abdominopelvic CAT scan. 3. Cancer markers including CEA. 4. Guaiac all the stools daily x3. 5. NG tube for decompression. 6. Prepare the patient for colonoscopy after adequate preparation. 7. Further recommendation to follow and surgical reevaluation to be considered. Thank you for letting me to participate in your patient's case management. June Nguyen MD
[2018-07-10] MEDS ORDERED: Lactated Ringer's 500 ML IV ONE ×2 (09:50)
[2018-07-10] MEDS ORDERED: Propofol 10 mg/ml Inj (20 ML) ONE (09:52)
[2018-07-10] MEDS: Docusate-Senna 50 mg-8.6 mg Tab PO SCH ×2 (11:00→17:10)
[2018-07-10] MEDS: Multiple Vitamins Tab PO SCH (11:00)
[2018-07-10] MEDS: LINZESS 145MCG PO SCH (11:00)
[2018-07-10] MEDS: Pantoprazole 40 mg Susp UD NG SCH ×2 (11:29→17:10)
--- NOTE | 2018-07-11 02:59 | PN ---
DATE: 07/10/2018 DAILY PROGRESS NOTE SUBJECTIVE: The patient is seen today, 07/10/2018. He is not in any cardiopulmonary distress. PHYSICAL EXAMINATION: VITAL SIGNS: Blood pressure 101/63, temperature 98, respiratory rate 20 and pulse 17. HEENT: Pupils are equal and reactive to light. Normal-appearing mucosa of the conjunctivae, oropharynx and nasal membrane mucosa. NECK: Supple. No JVD. No carotid bruit. No lymph node. No thyromegaly. CHEST AND LUNGS: Bilateral symmetrical expansion. Good air exchange. No rales. No rhonchi. CARDIOVASCULAR SYSTEM: PMI not localized. S1 and S2. No additional sounds. ABDOMEN: Normoactive bowel sounds. No tenderness. No organomegaly. No masses. EXTREMITIES: No cyanosis, no clubbing, no edema. CENTRAL NERVOUS SYSTEM: Alert, awake, oriented x2. No neurological deficit could be appreciated. ASSESSMENT: Small bowel obstruction, status post stool impaction, history of schizophrenia. PLAN: Continue current medications and management. Follow up with GI and surgical consult recommendations. Social Service for discharge planning. Akil Cunningham MD
[2018-07-11] MEDS: Pantoprazole 40 mg EC Tab PO SCH ×2 (09:54→17:26)
[2018-07-11] MEDS: Docusate-Senna 50 mg-8.6 mg Tab PO SCH ×2 (09:54→17:26)
[2018-07-11] MEDS: Multiple Vitamins Tab PO SCH (09:55)
[2018-07-11] MEDS: LINZESS 145MCG PO SCH (09:56)
[2018-07-11] MEDS: Bisacodyl 5mg EC Tab PO PRN (17:25)
--- NOTE | 2018-07-12 07:02 | PN ---
DATE: 07/11/2018 SUBJECTIVE: The patient is seen today, 07/11/2018. He is not in any cardiopulmonary distress. PHYSICAL EXAMINATION: VITAL SIGNS: Blood pressure 108/68, temperature 97.9, respiratory rate 20 and pulse 77. HEENT: Pupils equal, reactive to light. Normal-appearing mucosa of the conjunctivae, oropharynx and nasal membrane mucosa. NECK: Supple. No JVD, no carotid bruit. No lymph node. No thyromegaly. CHEST AND LUNGS: Bilateral symmetrical expansion. Good air exchange. No rales, no rhonchi. CARDIOVASCULAR SYSTEM: PMI not localized. S1, S2. No additional sounds. ABDOMEN: Normoactive bowel sounds. No tenderness, no organomegaly. No masses. EXTREMITIES: No cyanosis, no clubbing, no edema. CENTRAL NERVOUS SYSTEM: Alert, awake, oriented x2. No neurological deficits could be appreciated. ASSESSMENT: 1. Status post small bowel obstruction with stool impaction. 2. Hypertension. 3. Smoker. 4. Status post colonoscopy with biopsies negative for active colitis and dysplasia. PLAN: The patient is for discharge to long-term care facility as per recommendation of the social insurance analyst of the care home. Akil Cunningham MD
[2018-07-12] MEDS: Pantoprazole 40 mg EC Tab PO SCH ×2 (09:01→18:08)
[2018-07-12] MEDS: Docusate-Senna 50 mg-8.6 mg Tab PO SCH ×2 (09:01→18:08)
[2018-07-12] MEDS: Multiple Vitamins Tab PO SCH (09:02)
[2018-07-12] MEDS: LINZESS 145MCG PO SCH (09:05)
[2018-07-12 11:12] LABS: BASO # 0.1 K/uL (0.0-0.2); BASO % 1.1 % (0.0-2.0); EOS # 0.1 K/uL (0.0-0.7); EOS % 1.9 % (0.0-4.0); HEMOGLOBIN 13.3 g/dL (12.0-18.0); LYMPH # 1.5 K/uL (1.0-4.3); LYMPH % 24.9 % (20.0-40.0); MEAN CELL VOLUME 89.7 fL (80.0-94.0); MEAN CORPUSCULAR HEMOGLOBIN 29.9 pg (27.0-31.0); MEAN CORPUSCULAR HGB CONC 33.4 g/dL (33.0-37.0); MEAN PLATELET VOLUME 9.3 fL (7.2-11.7); MONO # 0.6 K/uL (0.0-0.8); NEUT # 3.7 K/uL (1.8-7.0); NEUT % 62.1 % (50.0-75.0); NRBC % 0.1 % (0.0-2.0); RBC 4.43 Mil/uL (4.40-5.90); RED CELL DISTRIBUTION WIDTH 14.7 % (11.5-14.5)
[2018-07-12 11:32] LABS: BLOOD UREA NITROGEN 13 mg/dL (9-20); CALCIUM 8.9 mg/dl (8.6-10.4); GFR NON-AFRICAN AMERICAN > 60
--- NOTE | 2018-07-12 16:05 | PN ---
DATE: 07/12/2018 LOCATION: 671, bed A. SUBJECTIVE: This is a 57-year-old male seen and examined in rounds today without reported significant clinical changes or evidence of active bleeding, tolerating oral intake well. The entire chart is reviewed including but not limited to the most recent lab and radiology study results, current and the previous medication list. Today's lab showed normal CBC and normal SMA-7 with normal calcium level. PHYSICAL EXAMINATION: GENERAL: A 57-year-old male. VITAL SIGNS: Afebrile with pulse of 58, respiratory rate 20-22, blood pressure 124/74. HEENT: Showed pale, dry mucous membrane. Nonicteric sclerae. LUNGS: Few scattered crepitation. Decreased air entry at bases. HEART: Positive S1 and S2. ABDOMEN: Soft with mild generalized tenderness. No mass or organomegaly. No rebound tenderness or guarding, but mild abdominal distention with hypoactive bowel sounds. RECTAL: The patient refused. EXTREMITIES: Without significant clubbing, cyanosis or edema. NEUROLOGICAL: No reported new neurological deficits, sensory or motor. No reported new focal deficits. IMPRESSION: 1. Fecal impaction, disimpaction was performed. 2. Colitis, diagnosed by colonoscopy with biopsies done, awaiting results. 3. Intermittent period of partial bowel obstruction secondary to above. 4. Known history of schizophrenia, peptic ulcer disease, hypertension, bronchial asthma with depression. 5. Known history of hepatitis C viral infection. SUGGESTIONS: 1. Continue current management. 2. ID evaluation. 3. The patient to be treated for his hepatitis C infection as outpatient. 4. Further recommendation to follow. June Nguyen MD
[2018-07-12] MEDS: Ipratropium 0.02% Inhal Soln (0.5 mg/2.5 ml) UD IH SCH (20:23)
[2018-07-13] MEDS: Ipratropium 0.02% Inhal Soln (0.5 mg/2.5 ml) UD IH SCH ×4 (07:20→19:36)
[2018-07-13] MEDS: LINZESS 145MCG PO SCH (09:14)
[2018-07-13] MEDS: Pantoprazole 40 mg EC Tab PO SCH ×2 (09:14→17:11)
[2018-07-13] MEDS: Multiple Vitamins Tab PO SCH (09:15)
[2018-07-13] MEDS: Docusate-Senna 50 mg-8.6 mg Tab PO SCH ×2 (09:15→21:17)
--- NOTE | 2018-07-13 09:52 | PN ---
DATE: 07/13/2018 LOCATION: 671, bed A. SUBJECTIVE: This is a 57-year-old male seen and examined in rounds early today without any significant clinical changes or reported active bleeding. No chest pain or palpitation, somewhat tolerating oral intake well. No reported bowel movement early this morning. The entire chart is reviewed including but not limited to the most recent lab and radiology study results, current and the previous medication list, current and the previous medical events and today's lab results still pending. However, the patient still have normal CBC, normal SMA-7 but with low total protein and low albumin. PHYSICAL EXAMINATION: GENERAL: A 57-year-old male, appears to be awake, alert. VITAL SIGNS: Afebrile with pulse of 68, respiratory rate 20 to 22, blood pressure 100/56. HEENT: Showed pale, dry oral mucous membrane. Nonicteric sclerae. LUNGS: Few scattered crepitation. Decreased air entry at bases. HEART: Positive S1 and S2. ABDOMEN: Soft with generalized tenderness. No mass or organomegaly. No rebound tenderness or guarding. EXTREMITIES: Without significant edema, clubbing or cyanosis. NEUROLOGIC: No reported new neurological deficits, sensory or motor. No reported new focal deficits. Colon pathology report is seen, negative for cancer. IMPRESSION: 1. Recurrent fecal impaction. 2. Status post colonoscopy, with colitis and internal hemorrhoids. 3. Re-exacerbation of peptic ulcer disease. 4. Intermittent partial bowel obstruction due to above. 5. Known history of but not limited to hepatitis C viral infection, depression, bronchial asthma as well as hypertension with schizophrenia. SUGGESTIONS: 1. Continue current management. 2. Adjust oral intake. 3. Antireflux measures. 4. Further recommendation to follow. June Nguyen MD
--- NOTE | 2018-07-13 13:23 | PCM.PSYCH ---
Initial Psychiatric Evaluation - Initial Psychiatric Evaluation Type of Admission: Voluntary Legal Status: Capacity Chief Complaint (in patient's own words): Im feeling better now History of Present Illness and Precipitating Events: HPI: Pt is a 57 y/o male single, without children, and lives alone in a skilled nursing with past psych hx of schizophrenia who presented to [facility] on 07/04/18 for recurrent vomiting, dizziness, and abdominal distension. Consult was requested for psychiatric assessment. Pt remained disorganized and internally preoccupied throughout the interview. He appeared paranoid and delusional and confused. He appeared to have some learning disorder. Pt says he came in because he didnt feel too good and could not specify the reason, but he is better now. He remained a poor historian. He appeared to have loose associations. Pt is uncooperative and exhibits slow, muttering speech that is tangential. He makes poor eye contact. He has poor insight into his psychiatric and medical conditions as he is unable to specify/recall why he has been hospitalized. However he denies any auditory or visual hallucinations. He denies any suicidal ideation or any homicidal ideation. As per the hospital charts, he has a long history of inpatient psychiatric hospitalizations. He was also admitted at [facility] prior to his admission to the skilled nursing. He denies any drinking or any substance abuse. Past psych hx: schizophrenia, developmentally challenged PMHx: chronic constipation, SBO, TIA All: NKDA Current Medications: Active Medications Generic Name Dose Route Start Last Admin Trade Name Freq PRN Reason Stop Dose Admin Aspirin 325 mg 07/05/18 10:00 07/13/18 09:14 Aspirin PO 325 mg DAILY CATHERINE Administration Bisacodyl 5 mg 07/05/18 05:21 07/11/18 17:25 Dulcolax PO 5 mg BID PRN Administration Bisacodyl 10 mg 07/07/18 10:00 07/13/18 09:15 Dulcolax IL 10 mg DAILY CATHERINE Administration Clozapine 100 mg 07/05/18 10:00 07/13/18 09:15 Clozaril PO 100 mg BID CATHERINE Administration Famotidine 20 mg 07/05/18 10:00 07/13/18 09:14 Pepcid PO 20 mg BID CATHERINE Administration Folic Acid 1 mg 07/05/18 10:00 07/13/18 09:14 Folic Acid PO 1 mg DAILY CATHERINE Administration Home Med 1 tab 07/05/18 10:00 07/13/18 09:14 Patient's Own Medication PO 07/14/18 10:01 1 tab DAILY CATHERINE Administration Ipratropium Frederick 0.5 mg 07/12/18 20:15 07/13/18 11:24 Atrovent IH 0.5 mg RQID CATHERINE Administration Lactulose 10 gm 07/05/18 10:00 07/13/18 09:15 Enulose PO 10 gm DAILY CATHERINE Administration Multivitamins 1 tab 07/05/18 10:00 07/13/18 09:15 Hexavitamin PO 1 tab DAILY CATHERINE Administration Pantoprazole Sodium 40 mg 07/11/18 10:00 07/13/18 09:14 Protonix Ec Tab PO 40 mg BID CATHERINE Administration Propranolol HCl 10 mg 07/05/18 10:00 07/13/18 13:16 Inderal PO Not Given TID CATHERINE Rosuvastatin Calcium 10 mg 07/05/18 22:00 07/12/18 21:39 Crestor PO 10 mg HS CATHERINE Administration Senna/Docusate Sodium 1 tab 07/07/18 10:00 07/13/18 09:15 Senokot S 50 Mg-8.6 Mg PO 1 tab BID CATHERINE Administration Thiamine HCl 100 mg 07/05/18 10:00 07/13/18 09:15 Vitamin B1 Tab PO 100 mg DAILY CATHERINE Administration Past Psychiatric History - Past Psychiatric History Previous Treatment History: Inpatient Pertinent Medical Hx (Current Medical&Sleep Prob, Allergies): Allergies Allergy/AdvReac Type Severity Reaction Status Date / Time No Known Allergies Allergy Verified 07/04/18 13:04 Bisacodyl [Dulcolax] 5 mg PO BID PRN 09/16/17 Clozapine [Clozapine Odt] 100 mg PO BID 09/16/17 Folic Acid 1 mg PO DAILY 09/16/17 Linaclotide [Linzess] 145 mcg PO DAILY 09/16/17 Multivitamin [Multivitamins] 1 each PO DAILY 09/16/17 Propranolol HCl 10 mg PO BID 09/16/17 Aspirin 325 mg PO DAILY tab 09/21/17 Rosuvastatin Calcium [Crestor] 10 mg PO HS tab 09/21/17 Thiamine HCl [B-1] 100 mg PO DAILY #30 tablet 09/21/17 Ranitidine HCl [Acid Drawing Hand] 150 mg PO BID 11/08/17 Tiotropium Frederick Inhaler [Spiriva Inhalation Handihaler Device] 1 inhaler INH DAILY 11/08/17 Lactulose 10 gm PO BID 30 Days solution 11/11/17 Sumatriptan [Imitrex] 5 mg NS DAILY 07/03/18 Dicyclomine [Dicyclomine HCl] 10 mg PO PRN PRN MDD bid 07/05/18 Review of Systems - Review of Systems All systems: reviewed and no additional remarkable complaints except - Psychiatric Psychiatric: Anxiety, Irritability, Paranoia Mental Status Examination - Personal Presentation Personal Presentation: Looks stated age - Affect Affect: Constricted - Motor Activity Motor Activity: Psychomotor Retardation - Reliability in Providing Information Reliability in Providing Information: Poor, due to alteration in thoughts - Speech Speech: Disorganized - Mood Mood: Anxious - Formal Thought Process Formal Thought Process: Delusions, Paranoia, Loosening of associations - Hallucinations/Delusions Delusions: Persecution - Obsessions/Compulsions Obsessions: No Compulsions: No - Cognitive Functions Orientation: Person, Place, Situation, Time Sensorium: Alert Attention/Concentration: Attentive Abstract Thinking: [place] Estimate of Intelligence: Below average Judgement: Imparied, as evidence by: Poor judgement, Imparied, as evidence by: Lack of insight into illness - Risk Risk: Diminished functioning - Limitations Limitations: Other (snf) DSM 5 DX - DSM 5 DSM 5 Diagnosis: Schizophrenia paranoid type continuous - Recommended/Plan of Treatment Treatment Recommendations and Plan of Treatment: Schizophrenia paranoid type continuous Supportive therapy Individual therapy Psychoeducation Olanzapine for psychosis Hydroxyzine for anxiety Patient needs to be admitted in a skilled nursing/prison for the stabilization of the symptoms. As patient cannot carry out his activities of daily diet. - Smoking Cessation Smoking Cessation Initiated: No
[2018-07-14] MEDS: Ipratropium 0.02% Inhal Soln (0.5 mg/2.5 ml) UD IH SCH ×4 (07:30→19:32)
--- NOTE | 2018-07-14 09:26 | PN ---
DATE: 07/12/2018 SUBJECTIVE: The patient was seen on 07/12/2018. He was able to move his bowel, and there was no abdominal pain. PHYSICAL EXAMINATION: VITAL SIGNS: Blood pressure was 93/52, temperature 98.3, respiratory rate 20, and pulse 64. HEENT: Pupils equal, reactive to light. Normal-appearing mucosa of the conjunctivae, oropharynx, and nasal membrane mucosa. NECK: Supple. No JVD. No carotid bruit. No lymph node. No thyromegaly. CHEST AND LUNGS: Bilateral symmetrical expansion. Good air exchange. No rales. No rhonchi. CARDIOVASCULAR SYSTEM: PMI not localized. S1, S2. No additional sounds. ABDOMEN: Normoactive bowel sounds. No tenderness. No organomegaly. No masses. EXTREMITIES: No cyanosis, no clubbing, no edema. CENTRAL NERVOUS SYSTEM: Alert, awake, oriented x2. Moves all extremities equally. ASSESSMENT: Small bowel obstruction, stool impaction, status post colonoscopy, hypertension, and schizophrenia. PLAN: Continue current medication, and the patient to go to psychiatry evaluation for possible long-term placement. Follow up with the social worker psychiatric and case management. Akil Cunningham MD
[2018-07-14] MEDS: Docusate-Senna 50 mg-8.6 mg Tab PO SCH ×2 (09:29→21:59)
[2018-07-14] MEDS: Bisacodyl 5mg EC Tab PO PRN (09:29)
[2018-07-14] MEDS: Pantoprazole 40 mg EC Tab PO SCH ×2 (09:29→18:00)
[2018-07-14] MEDS: Multiple Vitamins Tab PO SCH (09:29)
[2018-07-14] MEDS: LINZESS 145MCG PO SCH (09:31)
--- NOTE | 2018-07-14 10:54 | PN ---
DATE: 07/13/2018 SUBJECTIVE: The patient was seen on 07/13/2018. It was noticed that he had diarrhea. The patient was on multiple laxatives. PHYSICAL EXAMINATION: VITAL SIGNS: Blood pressure 114/76, temperature 98.2, respiratory rate 20, and pulse 72. HEENT: Pupils equal, reactive to light. Normal-appearing mucosa of the conjunctivae, oropharynx, and nasal membrane mucosa. NECK: Supple. No JVD. No carotid bruit. No lymph node. No thyromegaly. CHEST AND LUNGS: Bilateral symmetrical expansion. Good air exchange. No rales. No rhonchi. CARDIOVASCULAR SYSTEM: PMI not localized. S1, S2. No additional sounds. ABDOMEN: Normoactive bowel sounds. No tenderness. No organomegaly. No masses. EXTREMITIES: No cyanosis, no clubbing, no edema. CENTRAL NERVOUS SYSTEM: Alert, awake, oriented x2. Moves all extremities equally. ASSESSMENT: Status post small bowel obstruction, hypertension, history of hepatitis C, chronic obstructive pulmonary disease, and smoker. PLAN: We are changing the lactulose into p.r.n. and we will keep the Senna at night. Follow up with Social Service and case management regarding discharge planning. Akil Cunningham MD
--- NOTE | 2018-07-14 15:17 | PN ---
DATE: 07/14/2018 LOCATION: 671, bed A. SUBJECTIVE: This is a 57-year-old male seen and examined in rounds without reported significant clinical changes or evidence of active GI bleeding, somewhat tolerating oral intake well. No reported chest pain, palpitation or significant complaint of active GI bleeding. The entire chart is reviewed including the most recent lab and radiology study results and today's lab results still pending. PHYSICAL EXAMINATION: GENERAL: A 57-year-old male. VITAL SIGNS: Afebrile, awake, alert with pulse of 62, respiratory 20-22, blood pressure of 112/66. HEENT: Showed pale, dry oral mucous membrane. Nonicteric sclerae. LUNGS: Few scattered crepitation. Decreased air entry at bases. HEART: Positive S1 and S2. ABDOMEN: Soft with mild generalized tenderness and slight distention. Bowel sounds are hypoactive. No mass or organomegaly. No rebound tenderness or guarding. EXTREMITIES: Without significant clubbing, cyanosis, but mild lower extremity edematous changes. No reported new focal deficits. IMPRESSION: 1. Recurrent fecal impaction, with status post colonoscopy and disimpaction. 2. Intermittent partial bowel obstruction secondary to above. 3. Peptic ulcer disease by history. 4. Known history of hepatitis C viral infection, schizophrenia, depression as well as hypertension and bronchial asthma. SUGGESTIONS: 1. Continue current management. 2. High-fiber diet. 3. The patient may be placed on Amitiza 24 mcg p.o. daily as outpatient. Further recommendation to follow. June Nguyen MD
--- NOTE | 2018-07-14 23:21 | PN ---
DATE: 07/14/2018 DAILY PROGRESS NOTE SUBJECTIVE: The patient is seen today, 07/14/2018. He is not in cardiopulmonary distress. PHYSICAL EXAMINATION: VITAL SIGNS: Blood pressure 104/68, temperature 97.4, respiratory rate 18, and pulse 66. HEENT: Normal-appearing mucosa of the conjunctivae. NECK: Supple. No JVD. No carotid bruit. No lymph node. No thyromegaly. CHEST AND LUNGS: Bilateral symmetrical expansion. Good air exchange. No rales. No rhonchi. CARDIOVASCULAR SYSTEM: PMI not localized. S1 and S2. No additional sounds. ABDOMEN: Normoactive bowel sounds. No tenderness. No organomegaly. No masses. EXTREMITIES: No cyanosis, no clubbing, and no edema. CENTRAL NERVOUS SYSTEM: Awake and oriented x2. No neurological deficits. ASSESSMENT: Status post small bowel obstruction, schizophrenia, hypertension, and history of hepatitis C. PLAN: Continue current medications and laxatives. Follow up with social service and case management for further discharge planning. Akil Cunningham MD
--- NOTE | 2018-07-15 08:24 | PN ---
DATE: 07/15/2018 LOCATION: 651, bed A. SUBJECTIVE: This is a 57-year-old male, seen and examined in rounds without significant clinical changes or reported active bleeding, appeared to be more awake, alert, no reported chest pain or palpitation or significant shortness of breath but mild generalized weakness. The entire chart is reviewed including but not limited to the most recent lab and radiology study results, current and the previous medication list, current and the previous medical events and today's lab results still pending. On record, the patient tolerated oral intake well but less bowel movement frequency as his habit. PHYSICAL EXAMINATION: GENERAL: A 57-year-old male. VITAL SIGNS: Afebrile with pulse of 72, respiratory rate 20 to 22, blood pressure of 110/66. HEENT: Showed pale, dry oral mucous membrane. Nonicteric sclerae. LUNGS: Few scattered crepitation. Decreased air entry at bases. HEART: Positive S1 and S2. ABDOMEN: Soft with mild generalized tenderness. No mass or organomegaly. No rebound tenderness or guarding. EXTREMITIES: With slight lower extremity edematous changes. No clubbing or cyanosis. NEUROLOGIC: No reported new neurological deficits, sensory or motor, no reported new focal deficits. IMPRESSION: 1. Recurrent episodes of fecal impaction with status post colonoscopy and fecal disimpaction. 2. Intermittent partial bowel obstruction secondary to above. 3. Known history of hepatitis C viral infection, depression, schizophrenia. 4. Re-exacerbation of peptic ulcer disease. 5. Known history of bronchial asthma and hypertension. SUGGESTIONS: 1. Continue current management. 2. The patient may benefit from lactulose 30 mL p.o. twice a day. 3. Further recommendation to follow. It has to be mentioned that the official pathology report from the colon biopsy is seen indicative of negative active colitis and dysplasia. Case is to be discussed with the admitting medical staff. June Nguyen MD
[2018-07-15 08:26] LABS: BLOOD UREA NITROGEN 20 mg/dL (9-20); CALCIUM 8.4 mg/dl (8.6-10.4); GFR NON-AFRICAN AMERICAN > 60
[2018-07-15] MEDS: Ipratropium 0.02% Inhal Soln (0.5 mg/2.5 ml) UD IH SCH ×4 (08:26→19:50)
[2018-07-15] MEDS: Docusate-Senna 50 mg-8.6 mg Tab PO SCH ×2 (09:53→18:04)
[2018-07-15] MEDS: Multiple Vitamins Tab PO SCH (09:53)
[2018-07-15] MEDS: Pantoprazole 40 mg EC Tab PO SCH ×2 (09:53→18:04)
[2018-07-15 11:25] LABS: BASO # 0.1 K/uL (0.0-0.2); BASO % 1.2 % (0.0-2.0); EOS # 0.1 K/uL (0.0-0.7); EOS % 1.6 % (0.0-4.0); HEMOGLOBIN 11.8 g/dL (12.0-18.0); LYMPH # 1.6 K/uL (1.0-4.3); LYMPH % 24.8 % (20.0-40.0); MEAN CELL VOLUME 89.8 fL (80.0-94.0); MEAN CORPUSCULAR HEMOGLOBIN 30.2 pg (27.0-31.0); MEAN CORPUSCULAR HGB CONC 33.6 g/dL (33.0-37.0); MEAN PLATELET VOLUME 9.1 fL (7.2-11.7); MONO # 0.7 K/uL (0.0-0.8); MONO % 11.3 % (0.0-10.0); NEUT % 61.1 % (50.0-75.0); NRBC % 0.1 % (0.0-2.0); RBC 3.91 Mil/uL (4.40-5.90); RED CELL DISTRIBUTION WIDTH 15.1 % (11.5-14.5); WHITE BLOOD COUNT 6.6 K/uL (4.8-10.8)
[2018-07-15 11:31] LABS: INR 1.1; PROTHROMBIN TIME 11.7 SECONDS (9.7-12.2)
[2018-07-15 11:55] LABS: FREE T4 1.15 ng/dL (0.78-2.19)
[2018-07-15] MEDS: Bisacodyl 5mg EC Tab PO PRN (18:04)
--- NOTE | 2018-07-15 23:05 | PN ---
DATE: 07/15/2018 SUBJECTIVE: The patient is seen today, 07/15/2018. He is not in any cardiopulmonary distress. PHYSICAL EXAMINATION: VITAL SIGNS: Blood pressure 112/71, temperature 97.7, respiratory rate 20, and pulse 76. HEENT: Normal-appearing mucosa of the conjunctivae, oropharynx and nasal membrane mucosa. NECK: Supple. No JVD, no carotid bruits, no lymph nodes, no thyromegaly. CHEST AND LUNGS: Bilateral symmetrical expansion. Good air exchange. No rales, no rhonchi. CARDIOVASCULAR SYSTEM: PMI not localized. S1 and S2. No additional sounds. ABDOMEN: Normoactive bowel sounds. No tenderness, no organomegaly, no masses. EXTREMITIES: No cyanosis, no clubbing, no edema. CENTRAL NERVOUS SYSTEM: Alert, awake, oriented x2. Moves all extremities equally. ASSESSMENT: 1. Status post small bowel obstruction. 2. Hypertension. 3. History of hepatitis C. 4. Schizophrenia. PLAN: Continue current medications and stool softeners and monitor the patient's bowel movements. Follow up with social service and case management regarding discharge planning. Akil Cunningham MD
[2018-07-16] MEDS: Ipratropium 0.02% Inhal Soln (0.5 mg/2.5 ml) UD IH SCH ×4 (08:56→20:01)
[2018-07-16] MEDS: Multiple Vitamins Tab PO SCH (09:01)
[2018-07-16] MEDS: Docusate-Senna 50 mg-8.6 mg Tab PO SCH ×2 (09:01→18:14)
[2018-07-16] MEDS: Pantoprazole 40 mg EC Tab PO SCH ×2 (09:02→18:14)
[2018-07-16] MEDS ORDERED: Magnesium Citrate Oral SOL (300 ml) PO ONE (09:41)
--- NOTE | 2018-07-16 12:30 | PN ---
DATE: 07/16/2018 LOCATION: 671, bed A. SUBJECTIVE: This 57-year-old male seen and examined in rounds without significant clinical changes or reported active bleeding, but less bowel movement frequency. No nausea or vomiting, chest pain or palpitation or significant increase of shortness of breath so far. The entire chart is reviewed including the most recent lab results and today's lab results still pending. However, the patient still has low hemoglobin but normal white blood cells and platelets with low calcium but increased CEA level by history by yesterday lab results. PHYSICAL EXAMINATION: GENERAL: A 57-year-old male, somewhat awake, alert. VITAL SIGNS: Afebrile with pulse of 72, respiratory rate 20 to 24, blood pressure of 110/64. HEENT: Showed pale, dry oral mucous membrane. Nonicteric sclerae. LUNGS: Few scattered crepitation. Decreased air entry at bases. HEART: Positive S1 and S2. ABDOMEN: Soft with mild generalized tenderness. No mass or organomegaly. No rebound tenderness or guarding. EXTREMITIES: Without significant clubbing, cyanosis or edema. NEUROLOGIC: No reported new neurological deficits. IMPRESSION: 1. Fecal impaction with intermittent partial bowel obstruction. 2. Known history of but not limited to hypertension and schizophrenia, viral hepatitis, by history. 3. Mild anemia. 4. Re-exacerbation of peptic ulcer disease. 5. Known history of depression, bronchial asthma. SUGGESTIONS: 1. Continue current management. 2. Repeat stool for occult blood. 3. No further aggressive GI workup and lactulose at 30 mL three times a day to be ordered if the patient's symptoms persist. June Nguyen MD
--- NOTE | 2018-07-16 19:46 | PN ---
DATE: 07/16/2018 SUBJECTIVE: The patient is seen today, 07/16/2018. He moved bowel the day before. PHYSICAL EXAMINATION: VITAL SIGNS: Blood pressure 113/69, temperature 97.9, respiratory rate 20 and pulse 69. HEENT: Pupils equal, reactive to light. Normal-appearing mucosa of the conjunctivae, oropharynx and nasal membrane mucosa. NECK: Supple. No JVD, no carotid bruit. No lymph node. No thyromegaly. CHEST AND LUNGS: Bilateral symmetrical expansion. Good air exchange. No rales, no rhonchi. CARDIOVASCULAR SYSTEM: PMI not localized. S1 and S2. No additional sounds. ABDOMEN: Normoactive bowel sounds. No tenderness, no organomegaly. No masses. EXTREMITIES: No cyanosis, no clubbing, no edema. CENTRAL NERVOUS SYSTEM: Alert, awake, oriented x3 and moves all extremities equally. ASSESSMENT: Status post small bowel obstruction secondary to stool impaction, hypertension, chronic obstructive pulmonary disease, smoker. PLAN: Continue stool softener and continue physical therapy and the patient is for discharge planning for long-term. Akil Cunningham MD
[2018-07-17] MEDS: Ipratropium 0.02% Inhal Soln (0.5 mg/2.5 ml) UD IH SCH ×3 (08:06→20:31)
[2018-07-17] MEDS: Pantoprazole 40 mg EC Tab PO SCH ×2 (09:28→17:52)
[2018-07-17] MEDS: Docusate-Senna 50 mg-8.6 mg Tab PO SCH ×2 (09:28→17:52)
[2018-07-17] MEDS: Multiple Vitamins Tab PO SCH (09:28)
[2018-07-18 06:49] LABS: BASO # 0.1 K/uL (0.0-0.2); BASO % 1.2 % (0.0-2.0); EOS # 0.2 K/uL (0.0-0.7); EOS % 3.1 % (0.0-4.0); HEMOGLOBIN 10.7 g/dL (12.0-18.0); LYMPH # 1.7 K/uL (1.0-4.3); MEAN CELL VOLUME 89.9 fL (80.0-94.0); MEAN CORPUSCULAR HEMOGLOBIN 30.4 pg (27.0-31.0); MEAN CORPUSCULAR HGB CONC 33.8 g/dL (33.0-37.0); MEAN PLATELET VOLUME 9.4 fL (7.2-11.7); MONO # 0.7 K/uL (0.0-0.8); MONO % 12.2 % (0.0-10.0); NEUT % 53.5 % (50.0-75.0); NRBC % 0.2 % (0.0-2.0); RBC 3.53 Mil/uL (4.40-5.90); RED CELL DISTRIBUTION WIDTH 15.3 % (11.5-14.5); WHITE BLOOD COUNT 5.7 K/uL (4.8-10.8)
[2018-07-18 07:17] LABS: BLOOD UREA NITROGEN 20 mg/dL (9-20); GFR NON-AFRICAN AMERICAN > 60
--- NOTE | 2018-07-18 08:07 | PN ---
DATE: 07/18/2018 LOCATION: 671, bed A. SUBJECTIVE: This is a 57-year-old male seen and examined in rounds without reported active bleeding but periods of recurrent constipation with less bowel movement frequency and mild abdominal pain. No chest pain, palpitation or significant complaint of shortness of breath. No chills or fever. The patient tolerated oral intake recently without nausea or vomiting but mild dyspepsia. The entire chart is reviewed including but not limited to most recent lab and radiology study results. Current and the previous medication list. Current and the previous medical records. Case discussed with the staff at length. Today's lab results showed hemoglobin of 10.7, hematocrit 31.7 with low platelet count with blood glucose level 117, calcium of 8. PHYSICAL EXAMINATION: GENERAL: A 57-year-old male, appears to be awake, alert. VITAL SIGNS: Afebrile with blood pressure 110/62, respiratory rate 18 to 20, afebrile with pulse of 76. HEENT: Showed pale, dry oral mucous membrane. Nonicteric sclerae. LUNGS: Few scattered crepitation. Decreased air entry at bases. HEART: Positive S1 and S2. ABDOMEN: Soft with slight distention with mild generalized tenderness. No mass or organomegaly. No rebound tenderness or guarding. EXTREMITIES: Without reported significant clubbing or cyanosis. No reported edematous changes. NEUROLOGIC: No reported new neurological deficits, sensory or motor. IMPRESSION: 1. Recurrent episode of fecal impaction, most likely inducing intermittent partial bowel obstruction, disimpaction is performed through colonoscopy. 2. Known history of schizophrenia, hypertension, peptic ulcer disease as well as viral heparin infection. 3. Mild anemia, most likely secondary to above. 4. Re-exacerbation of peptic ulcer disease. 5. Known history of bronchial asthma, stable. 6. Depression by history. SUGGESTIONS: 1. Continue current management. 2. Adjust oral intake with high fiber. 3. The patient to be kept on Amitiza 24 mcg p.o. once a day as outpatient. 4. We will follow up closely with you. June Nguyen MD
[2018-07-18 08:23] VITALS: RESP 20
--- NOTE | 2018-07-18 08:27 | PN ---
DATE: 07/17/2018 LOCATION: 71, bed A. SUBJECTIVE: This is a 57-year-old male seen and examined in rounds without reported significant clinical changes or active bleeding with less frequent bowel movement, but no reported actual chest pain, palpitation or significant increase of shortness of breath. The patient tolerated oral intake without evidence of active GI bleeding. The entire chart is reviewed, including but not limited to the most recent lab and radiology study results. Today's lab results still pending. PHYSICAL EXAMINATION: GENERAL: A 57-year-old male. Awake, alert. VITAL SIGNS: Afebrile with pulse of 70, respiratory rate 20 to 22, blood pressure 120/82. HEENT: Pale, dry oral mucous membrane. Nonicteric sclerae. LUNGS: Few scattered crepitation. Decreased air entry at bases. HEART: Positive S1 and S2. ABDOMEN: Soft with mild generalized tenderness. No mass or organomegaly. No rebound tenderness or guarding. EXTREMITIES: Without significant clubbing, cyanosis, or edema. NEUROLOGIC: No reported new neurological deficits, sensory or motor. No reported new focal deficits. IMPRESSION: 1. Intermittent partial bowel obstruction due to fecal impaction, disimpaction done by colonoscopy. 2. Exacerbation of peptic ulcer disease. 3. Mild anemia, most likely secondary to above. 4. Multiple past medical history including hypertension, schizophrenia with viral hepatitis by history. 5. Known history of bronchial asthma and depression. SUGGESTIONS: 1. Continue current management. 2. Antireflux measures. 3. Follow up H and H. Further recommendation to follow. June Nguyen MD
[2018-07-18] MEDS: Ipratropium 0.02% Inhal Soln (0.5 mg/2.5 ml) UD IH SCH ×4 (08:34→19:17)
[2018-07-18] MEDS: Multiple Vitamins Tab PO SCH (10:08)
[2018-07-18] MEDS: Docusate-Senna 50 mg-8.6 mg Tab PO SCH ×2 (10:09→17:33)
[2018-07-18] MEDS: Pantoprazole 40 mg EC Tab PO SCH ×2 (10:09→17:33)
[2018-07-19] MEDS: Ipratropium 0.02% Inhal Soln (0.5 mg/2.5 ml) UD IH SCH ×4 (07:30→20:16)
[2018-07-19] MEDS: Multiple Vitamins Tab PO SCH (10:25)
[2018-07-19] MEDS: Docusate-Senna 50 mg-8.6 mg Tab PO SCH ×2 (10:26→17:12)
[2018-07-19] MEDS: Pantoprazole 40 mg EC Tab PO SCH ×2 (10:28→17:12)
--- NOTE | 2018-07-19 13:13 | PN ---
DATE: 07/19/2018 LOCATION: 671, bed A. SUBJECTIVE: This is a 57-year-old male, seen and examined in rounds without reported significant clinical changes, somewhat tolerating oral intake well without reported active bleeding, chest pain, palpitation or significant mental status changes. No shortness of breath. The patient is post lower endoscopy with fecal disimpaction. PHYSICAL EXAMINATION: GENERAL: A 57-year-old male. VITAL SIGNS: Afebrile with pulse of 78, respiratory rate 20 to 22 with blood pressure 110/64. HEENT: Showed pale, dry oral mucous membrane. Nonicteric sclerae. LUNGS: Few scattered crepitation. Decreased air entry at bases. HEART: Positive S1 and S2. ABDOMEN: Soft with mild generalized tenderness and hypoactive bowel sounds. No mass or organomegaly could be appreciated. EXTREMITIES: Lower extremities mild edematous changes. No clubbing or cyanosis. NEUROLOGIC: No reported new neurological deficits, sensory or motor. On record, the pathology report of the colon biopsy is seen. IMPRESSION: 1. Fecal impaction. 2. Re-exacerbation of peptic ulcer disease. 3. Changed of bowel movement habit secondary to, most likely drug induced. 4. Intermittent partial bowel obstruction secondary to fecal impaction most likely. 5. Known history of hypertension, schizophrenia, depression, peptic ulcer disease as well as viral hepatitis infection. 6. Known history of bronchial asthma, stable. SUGGESTIONS: 1. Agree with your plan. 2. High-fiber diet. 3. No citrus, no seeds. 4. Psychiatric evaluation. 5. No further aggressive GI workup in the meantime . 6. We will followup closely with you. 7. On record, the patient should be on Amitiza 24 mcg p.o. daily as outpatient in addition to lactulose 30 mL p.o. twice a day. 8. We will follow up closely with you. June Nguyen MD
--- NOTE | 2018-07-20 01:55 | PN ---
DATE: 07/18/2018 Late entry for daily visit done on 07/18/2018. SUBJECTIVE: The patient is still having slight abdominal distention, but he is able to move bowels. PHYSICAL EXAMINATION: VITAL SIGNS: Blood pressure was 144/94, temperature 97.6, respiratory rate 20, and pulse 71. HEENT: Pupils equal, reactive to light. Normal-appearing mucosa of the conjunctivae, oropharynx, and nasal membrane mucosa. NECK: Supple. No JVD. No carotid bruit. No lymph node. No thyromegaly. CHEST AND LUNGS: Bilateral symmetrical expansion. Good air exchange. No rales. No rhonchi. CARDIOVASCULAR SYSTEM: PMI not localized. S1, S2. No additional sounds. ABDOMEN: Normoactive bowel sounds. No tenderness. No organomegaly. No masses. EXTREMITIES: No cyanosis, no clubbing, no edema. CENTRAL NERVOU SYSTEM: Alert, awake, oriented x2. No neurological deficit could be appreciated. ASSESSMENT: Status post small bowel obstruction secondary to stool impaction, hypertension, smoker, and chronic obstructive pulmonary disease. PLAN: Continue current medications and stool softeners and follow with case management for discharge planning. Akil Cunningham MD
--- NOTE | 2018-07-20 01:57 | PN ---
DATE: 07/19/2018 SUBJECTIVE: The patient is seen today, . He is not in any cardiopulmonary distress. PHYSICAL EXAMINATION: VITAL SIGNS: Blood pressure 124/80, temperature 98.2, respiratory rate 20, and pulse 85. HEENT: Pupils equal, reactive to light. Normal-appearing mucosa of the conjunctivae, oropharynx, and nasal membrane mucosa. NECK: Supple. No JVD. No carotid bruit. No lymph node. No thyromegaly. CHEST AND LUNGS: Bilateral symmetrical expansion. Good air exchange. No rales. No rhonchi. CARDIOVASCULAR SYSTEM: PMI not localized. S1, S2. No additional sounds. ABDOMEN: Normoactive bowel sounds. No tenderness. No organomegaly. No masses. EXTREMITIES: No cyanosis, no clubbing, no edema. CENTRAL NERVOUS SYSTEM: Alert, awake, oriented x2. No neurological deficit could be appreciated. ASSESSMENT: 1. Status post small bowel obstruction. 2. Hypertension. 3. Smoker. 4. Chronic obstructive pulmonary disease. PLAN: Continue current medications, and continue stool softeners, and continue the antipsychotic medications and follow with case management for discharge planning. Akil Cunningham MD
[2018-07-20] MEDS: Ipratropium 0.02% Inhal Soln (0.5 mg/2.5 ml) UD IH SCH ×4 (07:45→20:58)
[2018-07-20] MEDS: Multiple Vitamins Tab PO SCH (09:44)
[2018-07-20] MEDS: Docusate-Senna 50 mg-8.6 mg Tab PO SCH ×2 (09:44→18:07)
[2018-07-20] MEDS: Bisacodyl 5mg EC Tab PO PRN (09:44)
[2018-07-20] MEDS: Pantoprazole 40 mg EC Tab PO SCH ×2 (09:45→18:07)
--- NOTE | 2018-07-20 19:36 | PN ---
DATE: 07/20/2018 LOCATION: 671, bed A. SUBJECTIVE: This is a 57-year-old male, seen and examined in rounds today without significant clinical changes or reported active bleeding nor reported active chest pain or palpitation. The entire chart is reviewed including the most recent lab and radiology study results. The patient still has low hemoglobin and hematocrit. Today's lab result is still pending. On record, the patient reported some bowel movement, but not complete. PHYSICAL EXAMINATION: GENERAL: A 57-year-old male, awake and alert. VITAL SIGNS: Afebrile with pulse of 74, respiratory rate 20 to 22, and blood pressure 124/78. HEENT: Showed pale, dry oral mucous membrane. Nonicteric sclerae. LUNGS: Few scattered crepitation. Decreased air entry at bases. HEART: Positive S1 and S2. ABDOMEN: Soft with mild generalized tenderness and slight distention. No mass or organomegaly. No rebound tenderness or guarding. EXTREMITIES: Without significant clubbing, cyanosis, or edema. NEUROLOGIC: No reported new neurological deficits, sensory or motor. IMPRESSION: 1. Fecal impaction inducing intermittent partial bowel obstruction, treated by colonoscopy with disimpaction. 2. Anemia most likely secondary to chronic disease. 3. Re-exacerbation of peptic ulcer disease. 4. Known history of but not limited to depression, hypertension, schizophrenia, and viral hepatitis infection. 5. Known history of bronchial asthma, stable. SUGGESTIONS: 1. Continue current management. 2. Follow up H and H. 3. Repeat cancer markers. 4. Hepatitis profile. 5. Further recommendation to follow. June Nguyen MD
--- NOTE | 2018-07-21 06:39 | PN ---
DATE: 07/20/2018 DAILY PROGRESS NOTE SUBJECTIVE: The patient is seen today, 07/20/2018. He is not in any cardiopulmonary distress. The patient moves bowel. OBJECTIVE: VITAL SIGNS: Blood pressure is 120/77, temperature 98, respiratory rate 20, and pulse 88. HEENT: Pupils equal and reactive to light. Normal-appearing mucosa of the conjunctivae, oropharynx, and nasal membrane mucosa. NECK: Supple. No JVD. No carotid bruit. No lymph node. No thyromegaly. CHEST AND LUNGS: Bilateral symmetrical expansion. Good air exchange. No rales, no rhonchi. CARDIOVASCULAR SYSTEM: PMI not localized. S1, S2. No additional sounds. ABDOMEN: Normoactive bowel sounds. No tenderness. No organomegaly. No masses. EXTREMITIES: No cyanosis, no clubbing, no edema. CENTRAL NERVOUS SYSTEM: Alert, awake, and oriented x2. No neurological deficit could be appreciated. ASSESSMENT: 1. Status post small bowel obstruction secondary to stool impaction which resolved. 2. Hypertension. 3. Chronic obstructive pulmonary disease. 4. Smoker. 5. Schizophrenia. PLAN: Continue current stool softeners and current medications. Discussed with case management and social service for discharge planning. I will be away from 07/21/2018 to 07/26/2018, the hospitalist will be covering. Akil Cunninhgam MD
[2018-07-21] MEDS: Ipratropium 0.02% Inhal Soln (0.5 mg/2.5 ml) UD IH SCH ×4 (08:00→20:45)
[2018-07-21] MEDS: Docusate-Senna 50 mg-8.6 mg Tab PO SCH ×2 (11:12→18:07)
[2018-07-21] MEDS: Multiple Vitamins Tab PO SCH (11:13)
[2018-07-21] MEDS: Pantoprazole 40 mg EC Tab PO SCH ×2 (11:13→18:07)
--- NOTE | 2018-07-21 14:47 | PN ---
DATE: 07/21/2018 LOCATION: 671, bed A. SUBJECTIVE: This is a 57-year-old male, seen and examined early in rounds with the staff in the floor without significant clinical changes or reported active bleeding, somewhat tolerating oral intake well, but with less bowel movement frequency with mild abdominal distension. No reported actual chest pain, palpitation, chills, fever, or evidence of active GI bleeding. The entire chart is reviewed including the most recent lab and radiology study results and today's lab results are still pending; however, the patient still has low hemoglobin and hematocrit with low calcium, low albumin, and total protein. PHYSICAL EXAMINATION: GENERAL: A 57-year-old male. VITAL SIGNS: Afebrile with pulse of 70, respiratory rate 20 to 22, and blood pressure 108/64. HEENT: Showed pale, dry oral mucous membrane. Nonicteric sclerae. LUNGS: Few scattered crepitation. Decreased air entry at bases. HEART: Positive S1 and S2. ABDOMEN: Soft with mild generalized tenderness with mild distension and hypoactive bowel sounds. No mass or organomegaly. No rebound tenderness or guarding. EXTREMITIES: Left lower extremity edematous changes. No clubbing or cyanosis. NEUROLOGIC: No reported new neurological deficits, sensory or motor. No reported new focal deficits. IMPRESSION: 1. Fecal impaction with intermittent partial bowel obstruction, with status post colonoscopy and disimpaction recently. 2. Re-exacerbation of chronic obstructive pulmonary disease. 3. Anemia most likely secondary to the above. 4. Re-exacerbation of peptic ulcer disease. 5. Known history of hypertension, schizophrenia with viral hepatitis by history. SUGGESTIONS: 1. Continue current management. 2. Repeat stool for occult blood. 3. with hepatitis B viral load. 4. Further recommendation to follow. June Nguyen MD
--- NOTE | 2018-07-21 15:40 | CP.PCM.PN ---
<Serafin Alvarado - Last Filed: 07/21/18 16:05> Subjective - Date & Time of Evaluation Date of Evaluation: 07/21/18 Time of Evaluation: 15:45 - Subjective Subjective: PGY-[address] Anne Patient seen and examined at bedside. No acute events overnight. Patient tolerating diet, he has been up walking around the hallways, in good spirits. No hallucinations or delusions. Patient denies nausea, vomiting, headache, d iarrhea, dizziness, numbness, focal weakness, chest pain, SOB. Objective - Vital Signs/Intake and Output Vital Signs (last 24 hours): Temp Pulse Resp BP Pulse Ox 98.1 F 73 20 97/59 L 100 07/21/18 07:00 07/21/18 07:00 07/21/18 07:00 07/21/18 07:00 07/21/18 07:00 - Medications Medications: Current Medications Aspirin (Aspirin) 325 mg PO DAILY [facility] Last Admin: 07/21/18 11:13 Dose: 325 mg Bisacodyl (Dulcolax) 5 mg PO BID PRN Last Admin: 07/20/18 09:44 Dose: 5 mg Clozapine (Clozaril) 100 mg PO BID [facility] Last Admin: 07/21/18 11:13 Dose: 100 mg Famotidine (Pepcid) 20 mg PO BID [facility] Last Admin: 07/21/18 11:13 Dose: 20 mg Folic Acid (Folic Acid) 1 mg PO DAILY [facility] Last Admin: 07/21/18 11:13 Dose: 1 mg Ipratropium [place] (Atrovent) 0.5 mg IH RQID [facility] Last Admin: 07/21/18 15:10 Dose: Not Given Lactulose (Enulose) 10 gm PO PRN PRN Reason: IMPACTION Last Admin: 07/15/18 22:04 Dose: 10 gm Multivitamins (Hexavitamin) 1 tab PO DAILY [facility] Last Admin: 07/21/18 11:13 Dose: 1 tab Olanzapine (Zyprexa) 5 mg PO BID [facility] Last Admin: 07/21/18 11:13 Dose: 5 mg Pantoprazole Sodium (Protonix Ec Tab) 40 mg PO BID [facility] Last Admin: 07/21/18 11:13 Dose: 40 mg Propranolol HCl (Inderal) 10 mg PO TID [facility] Last Admin: 07/21/18 14:31 Dose: 10 mg Rosuvastatin Calcium (Crestor) 10 mg PO HS [facility] Last Admin: 07/20/18 21:59 Dose: 10 mg Senna/Docusate Sodium (Senokot S 50 Mg-8.6 Mg) 1 tab PO BID [facility] Last Admin: 07/21/18 11:12 Dose: 1 tab Thiamine HCl (Vitamin B1 Tab) 100 mg PO DAILY [facility] Last Admin: 07/21/18 11:12 Dose: 100 mg - Labs Labs: 07/18/18 06:35 07/18/18 06:35 PT 11.7 SECONDS (9.7-12.2) 07/15/18 11: INR 1.1 07/15/18 11:19 APTT 33.0 SECONDS (21-34) 07/15/18 11:19 - Constitutional Appears: Non-toxic, No Acute Distress - Head Exam Head Exam: ATRAUMATIC, NORMOCEPHALIC - Eye Exam Eye Exam: EOMI, Normal appearance - ENT Exam ENT Exam: Mucous Membranes Moist - Cardiovascular Exam Cardiovascular Exam: REGULAR RHYTHM, +S1, +S2 - GI/Abdominal Exam GI & Abdominal Exam: Soft, Normal Bowel Sounds. absent: Tenderness Additional comments: Large vertical surgical incision. Patient unable to verbalize adequately what procedure this is from. - Extremities Exam Extremities Exam: absent: Pedal Edema, Tenderness - Neurological Exam Neurological Exam: Alert, Awake, Oriented x3 Assessment and Plan - Assessment and Plan (Free Text) Assessment: 57 year old male presenting initially with constipation and vomiting, treated for SBO, now pending outpatient [facility] placement. SBO Resolved -S/p colonoscopic fecal impaction with GI -Senna, Lactulose, Dulcolax -Moving bowels, tolerating regular diet -Monitor BMs COPD -Continue current meds - Atrovent Schizophrenia -Psych consulted, Dr. Rosas -Patient calm, awake, and alert -Monitor signs of psychosis PPx DVT: Not indicated as pt with no IV meds, not bed-bound Dispo: Pending [facility] placement, f/u case management Assessment and plan d/w Dr. Omid Alvarado, PGY-1 <Lisandra Anne V - Last Filed: 07/21/18 17:13> Objective - Vital Signs/Intake and Output Vital Signs (last 24 hours): Temp Pulse Resp BP Pulse Ox 98.1 F 73 20 97/59 L 100 07/21/18 07:00 07/21/18 07:00 07/21/18 07:00 07/21/18 07:00 07/21/18 07:00 - Medications Medications: Current Medications Aspirin (Aspirin) 325 mg PO DAILY [facility] Last Admin: 07/21/18 11:13 Dose: 325 mg Bisacodyl (Dulcolax) 5 mg PO BID PRN Last Admin: 07/20/18 09:44 Dose: 5 mg Clozapine (Clozaril) 100 mg PO BID [facility] Last Admin: 07/21/18 11:13 Dose: 100 mg Famotidine (Pepcid) 20 mg PO BID [facility] Last Admin: 07/21/18 11:13 Dose: 20 mg Folic Acid (Folic Acid) 1 mg PO DAILY [facility] Last Admin: 07/21/18 11:13 Dose: 1 mg Ipratropium [place] (Atrovent) 0.5 mg IH RQID [facility] Last Admin: 07/21/18 15:10 Dose: Not Given Lactulose (Enulose) 10 gm PO HS PRN PRN Reason: IMPACTION Last Admin: 07/15/18 22:04 Dose: 10 gm Multivitamins (Hexavitamin) 1 tab PO DAILY [facility] Last Admin: 07/21/18 11:13 Dose: 1 tab Olanzapine (Zyprexa) 5 mg PO BID [facility] Last Admin: 07/21/18 11:13 Dose: 5 mg Pantoprazole Sodium (Protonix Ec Tab) 40 mg PO BID [facility] Last Admin: 07/21/18 11:13 Dose: 40 mg Propranolol HCl (Inderal) 10 mg PO TID [facility] Last Admin: 07/21/18 14:31 Dose: 10 mg Rosuvastatin Calcium (Crestor) 10 mg PO HS [facility] Last Admin: 07/20/18 21:59 Dose: 10 mg Senna/Docusate Sodium (Senokot S 50 Mg-8.6 Mg) 1 tab PO BID [facility] Last Admin: 07/21/18 11:12 Dose: 1 tab Thiamine HCl (Vitamin B1 Tab) 100 mg PO DAILY [facility] Last Admin: 07/21/18 11:12 Dose: 100 mg - Labs Labs: 07/18/18 06:35 07/18/18 06:35 PT 11.7 SECONDS (9.7-12.2) 07/15/18 11:19 INR 1.1 07/15/18 11:19 APTT 33.0 SECONDS (21-34) 07/15/18 11:19 Attending/Attestation - Attestation I have personally seen and examined this patient.: Yes I have fully participated in the care of the patient.: Yes I have reviewed all pertinent clinical information, including history, physical exam and plan: Yes Notes (Text): Hospitalist service covering Dr. Cunningham from July 21 thru July 26, 2018 Patient seen, examined case discussed with medical office assistant instructor. Patient has been at the hospital quite some time initially he had a small bowel obstruction secondary to stool impaction is now resolved. Patient also has noted comorbidities of hypertension and COPD. Patient has a history of schizophrenia which is optimized on medication. Patient seen ambulatory explained to staff nicely getting coffee walking to the refreshment stand able to walk back. He says hello he denies any acute complaints. Patient is awaiting placement. Case management is on the case. 1. Schizophrenia paranoid type Assessment/plan Psychiatry on the case noted that needs to be admitted in a [facility]/skilled nursing for stabilization of symptoms as patient cannot carry out his activities of daily diet. Patient is on Clozaril 100 mg p.o. twice daily Olanzepine 5 mg twice a day 2. Status post small bowel obstruction secondary to stool impaction Resolved Assessment/plan Patient was seen and managed by general surgery in case Patient is having bowel movements Patient is currently on a Senokot 1 tab p.o. twice daily Dulcolax 5 mg p.o. twice daily Lactulose 10 g p.o. in the evening as needed for impaction 3. Hypertension Assessment/plan Propanolol 10 mg p.o. 3 times daily Aspirin 325 once a day 4. History of COPD Assessment/plan Patient is not in acute exacerbation Atrovent 0.5 mg inhaled [id number] 4 times daily 5. Prophylactic measure Patient is ambulatory GI prophylaxis Protonix 40 mg twice a day Disposition: Await his note noting that the past level 2 was approved by [facility] for skilled nursing placement. Patient is being set up [facility] he was presently denied by [place] he will he [facility] to continue to follow-up.
--- NOTE | 2018-07-22 01:27 | CP.PCM.PN ---
<Soraya Michael L - Last Filed: 07/22/18 01:24> Subjective - Date & Time of Evaluation Date of Evaluation: 07/22/18 Time of Evaluation: 01:24 - Subjective Subjective: Resident Progress Note for Hospitalist Service Patient examined at bedside. No acute events overnight. Denies fevers, chills, chest pain, shortness of breath, abdominal pain, diarrhea, dysuria, or any other complaints. Awaiting placement at [facility]. Objective - Vital Signs/Intake and Output Vital Signs (last 24 hours): Temp Pulse Resp BP Pulse Ox 98.0 F 75 20 97/60 L 97 07/21/18 23:38 07/21/18 23:38 07/21/18 23:38 07/21/18 23:38 07/21/18 23:38 - Medications Medications: Current Medications Aspirin (Aspirin) 325 mg PO DAILY [facility] Last Admin: 07/21/18 11:13 Dose: 325 mg Bisacodyl (Dulcolax) 5 mg PO BID PRN Last Admin: 07/20/18 09:44 Dose: 5 mg Clozapine (Clozaril) 100 mg PO BID [facility] Last Admin: 07/21/18 18:06 Dose: 100 mg Famotidine (Pepcid) 20 mg PO BID [facility] Last Admin: 07/21/18 18:07 Dose: 20 mg Folic Acid (Folic Acid) 1 mg PO DAILY [facility] Last Admin: 07/21/18 11:13 Dose: 1 mg Ipratropium [place] (Atrovent) 0.5 mg IH RQID [facility] Last Admin: 07/21/18 20:45 Dose: 0.5 mg Lactulose (Enulose) 10 gm PO HS PRN PRN Reason: IMPACTION Last Admin: 07/15/18 22:04 Dose: 10 gm Multivitamins (Hexavitamin) 1 tab PO DAILY [facility] Last Admin: 07/21/18 11:13 Dose: 1 tab Olanzapine (Zyprexa) 5 mg PO BID [facility] Last Admin: 07/21/18 18:08 Dose: 5 mg Pantoprazole Sodium (Protonix Ec Tab) 40 mg PO BID [facility] Last Admin: 07/21/18 18:07 Dose: 40 mg Propranolol HCl (Inderal) 10 mg PO TID [facility] Last Admin: 07/21/18 18:07 Dose: 10 mg Rosuvastatin Calcium (Crestor) 10 mg PO HS [facility] Last Admin: 07/21/18 22:07 Dose: 10 mg Senna/Docusate Sodium (Senokot S 50 Mg-8.6 Mg) 1 tab PO BID [facility] Last Admin: 07/21/18 18:07 Dose: 1 tab Thiamine HCl (Vitamin B1 Tab) 100 mg PO DAILY [facility] Last Admin: 07/21/18 11:12 Dose: 100 mg - Labs Labs: 07/18/18 06:35 07/18/18 06:35 PT 11.7 SECONDS (9.7-12.2) 07/15/18 11:19 INR 1.1 07/15/18 11:19 APTT 33.0 SECONDS (21-34) 07/15/18 11:19 - Constitutional Appears: Non-toxic, Well - Head Exam Head Exam: ATRAUMATIC, NORMOCEPHALIC - Eye Exam Eye Exam: EOMI, Normal appearance - ENT Exam ENT Exam: Mucous Membranes Moist - Cardiovascular Exam Cardiovascular Exam: REGULAR RHYTHM, +S1, +S2 - GI/Abdominal Exam GI & Abdominal Exam: Soft, Normal Bowel Sounds. absent: Tenderness Additional comments: Large vertical surgical incision - Extremities Exam Extremities Exam: absent: Pedal Edema, Tenderness - Neurological Exam Neurological Exam: Alert, Awake, Oriented x3 - Skin Exam Skin Exam: Warm, Intact, Dry Assessment and Plan - Assessment and Plan (Free Text) Assessment: 57 year old male presenting initially with constipation and vomiting, treated for SBO, now pending outpatient [facility] placement. Plan: SBO Resolved -S/p colonoscopic fecal impaction with GI -Senna, Lactulose, Dulcolax -Moving bowels, tolerating regular diet -Monitor BMs COPD -Continue current meds - Atrovent Schizophrenia -Psych consulted, Dr. Rosas -Patient calm, awake, and alert -Monitor signs of psychosis PPX DVT: Not indicated as pt with no IV meds, not bed-bound Dispo: Pending [facility] placement, f/u case management Soraya Michael PGY-1 <Lisandra Anne V - Last Filed: 07/22/18 18:50> Objective - Vital Signs/Intake and Output Vital Signs (last 24 hours): Temp Pulse Resp BP Pulse Ox 98 F 77 20 136/84 100 07/22/18 15:00 07/22/18 15:00 07/22/18 15:00 07/22/18 15:00 07/22/18 15:00 - Medications Medications: Current Medications Aspirin (Aspirin) 325 mg PO DAILY [facility] Last Admin: 07/22/18 09:35 Dose: 325 mg Bisacodyl (Dulcolax) 5 mg PO BID PRN Last Admin: 07/20/18 09:44 Dose: 5 mg Clozapine (Clozaril) 100 mg PO BID [facility] Last Admin: 07/22/18 17:37 Dose: 100 mg Famotidine (Pepcid) 20 mg PO BID [facility] Last Admin: 07/22/18 17:37 Dose: 20 mg Folic Acid (Folic Acid) 1 mg PO DAILY [facility] Last Admin: 07/22/18 09:35 Dose: 1 mg Ipratropium [place] (Atrovent) 0.5 mg IH RQID [facility] Last Admin: 07/22/18 13:56 Dose: 0.5 mg Lactulose (Enulose) 10 gm PO HS PRN PRN Reason: IMPACTION Last Admin: 07/15/18 22:04 Dose: 10 gm Multivitamins (Hexavitamin) 1 tab PO DAILY [facility] Last Admin: 07/22/18 09:35 Dose: 1 tab Olanzapine (Zyprexa) 5 mg PO BID [facility] Last Admin: 07/22/18 17:37 Dose: 5 mg Pantoprazole Sodium (Protonix Ec Tab) 40 mg PO BID [facility] Last Admin: 07/22/18 17:37 Dose: 40 mg Propranolol HCl (Inderal) 10 mg PO TID [facility] Last Admin: 07/22/18 17:37 Dose: 10 mg Rosuvastatin Calcium (Crestor) 10 mg PO HS [facility] Last Admin: 07/21/18 22:07 Dose: 10 mg Senna/Docusate Sodium (Senokot S 50 Mg-8.6 Mg) 1 tab PO BID [facility] Last Admin: 07/22/18 17:37 Dose: 1 tab Thiamine HCl (Vitamin B1 Tab) 100 mg PO DAILY [facility] Last Admin: 07/22/18 09:35 Dose: 100 mg - Labs Labs: 07/18/18 06:35 07/18/18 06:35 PT 11.7 SECONDS (9.7-12.2) 07/15/18 11:19 INR 1.1 07/15/18 11:19 APTT 33.0 SECONDS (21-34) 07/15/18 11:19 Attending/Attestation - Attestation I have personally seen and examined this patient.: Yes I have fully participated in the care of the patient.: Yes I have reviewed all pertinent clinical information, including history, physical exam and plan: Yes Notes (Text): Hospitalist service covering Dr. Cunningham from July 21 thru July 26, 2018 Patient seen, examined case discussed with lead medical technologist. Patient has been at the hospital quite some time initially he had a small bowel obstruction secondary to stool impaction is now resolved. Patient also has noted comorbidities of hypertension and COPD. Patient has a history of schizophrenia which is optimized on medication. Patient seen ambulatory explained to staff nicely getting coffee walking to the refreshment stand able to walk back. He says hello he denies any acute complaints. Patient appears mildly distended; instructed nursing staff to use PRN. Patient reports he had a bowel movement this morning. Patient is awaiting placement. Case management is on the case. 1. Schizophrenia paranoid type Assessment/plan Psychiatry on the case noted that needs to be admitted in a halfway/halfway for stabilization of symptoms as patient cannot carry out his activities of daily diet. Patient is on Clozaril 100 mg p.o. twice daily Olanzepine 5 mg twice a day 2. Status post small bowel obstruction secondary to stool impaction Resolved Assessment/plan Patient was seen and managed by general surgery in case Patient is having bowel movements Patient is currently on a Senokot 1 tab p.o. twice daily Dulcolax 5 mg p.o. twice daily Lactulose 10 g p.o. in the evening as needed for impaction 3. Hypertension Assessment/plan Propanolol 10 mg p.o. 3 times daily Aspirin 325 once a day 4. History of COPD Assessment/plan Patient is not in acute exacerbation Atrovent 0.5 mg inhaled [id number] 4 times daily 5. Prophylactic measure Patient is ambulatory GI prophylaxis Protonix 40 mg twice a day Disposition: Await his note noting that the past level 2 was approved by [facility] for halfway placement. Patient is being set up for [facility] he was presently denied by [place] he will [facility] to continue to follow-up.
[2018-07-22] MEDS: Multiple Vitamins Tab PO SCH (09:35)
[2018-07-22] MEDS: Pantoprazole 40 mg EC Tab PO SCH ×2 (09:35→17:37)
[2018-07-22] MEDS: Docusate-Senna 50 mg-8.6 mg Tab PO SCH ×2 (09:35→17:37)
[2018-07-22] MEDS: Ipratropium 0.02% Inhal Soln (0.5 mg/2.5 ml) UD IH SCH ×5 (09:47→19:14)
--- NOTE | 2018-07-22 14:31 | PN ---
DATE: 07/22/2018 LOCATION: Room 671, bed A. SUBJECTIVE: This is a 57-year-old male seen and examined in rounds with significant clinical changes or reported active bleeding with less bowel movement frequency. The entire chart is reviewed, including but not limited to the most recent lab and radiology study results, current and previous medication list. No chest pain, palpitations, chills or fever, or significant increase of shortness of breath. The patient tolerated oral intake well so far. Most recent lab results showed low hemoglobin and hematocrit with increased blood glucose level but low calcium. PHYSICAL EXAMINATION: GENERAL: This is a 57-year-old male, awake, alert and oriented. VITAL SIGNS: Febrile with pulse of 72, respiratory rate 20 to 22, blood pressure 116/72. HEENT: Showed pale, dry oral mucous membranes. Nonicteric sclerae. LUNGS: Few scattered crepitations. Decreased air entry at the bases. HEART: Positive S1 and S2. ABDOMEN: Soft. There is mild generalized tenderness. No mass or organomegaly. No rebound tenderness or guarding. EXTREMITIES: No significant clubbing, cyanosis, or edema. NEUROLOGICAL: No reported new neurological deficits, sensory or motor. IMPRESSION: 1. Fecal impaction, disimpaction is performed. 2. Intermittent partial bowel obstruction, most likely secondary to above. 3. Anemia. 4. Peptic ulcer disease. 5. Known history of hypertension. 6. Viral hepatitis infection by history. 7. Schizophrenia with depression. SUGGESTION: 1. Continue current management. 2. High-fiber diet, no seeds. 3. Antireflux measures. We will follow up closely with you. June Nguyen MD
--- NOTE | 2018-07-23 02:49 | CP.PCM.PN ---
Subjective - Date & Time of Evaluation Date of Evaluation: 07/23/18 Time of Evaluation: 02:46 - Subjective Subjective: Resident Progress Note for Hospitalist Service Patient examined at bedside. No acute events overnight. States he had two bowel movements. Denies fevers, chills, chest pain, shortness of breath, abdominal pain, diarrhea, dysuria, or any other complaints. Awaiting placement at [facility]. Objective - Vital Signs/Intake and Output Vital Signs (last 24 hours): Temp Pulse Resp BP Pulse Ox 97.6 F 76 20 127/74 99 07/22/18 23:30 07/22/18 23:30 07/22/18 23:30 07/22/18 23:30 07/22/18 23:30 Intake and Output: 07/22/18 07/23/18 18:59 06:59 Intake Total 600 Balance 600 - Medications Medications: Current Medications Aspirin (Aspirin) 325 mg PO DAILY [facility] Last Admin: 07/22/18 09:35 Dose: 325 mg Bisacodyl (Dulcolax) 5 mg PO BID PRN Last Admin: 07/20/18 09:44 Dose: 5 mg Clozapine (Clozaril) 100 mg PO BID [facility] Last Admin: 07/22/18 17:37 Dose: 100 mg Famotidine (Pepcid) 20 mg PO BID [facility] Last Admin: 07/22/18 17:37 Dose: 20 mg Folic Acid (Folic Acid) 1 mg PO DAILY [facility] Last Admin: 07/22/18 09:35 Dose: 1 mg Ipratropium [place] (Atrovent) 0.5 mg IH RQID [facility] Last Admin: 07/22/18 19:14 Dose: 0.5 mg Lactulose (Enulose) 10 gm PO HS PRN PRN Reason: IMPACTION Last Admin: 07/22/18 21:54 Dose: 10 gm Multivitamins (Hexavitamin) 1 tab PO DAILY [facility] Last Admin: 07/22/18 09:35 Dose: 1 tab Olanzapine (Zyprexa) 5 mg PO BID [facility] Last Admin: 07/22/18 17:37 Dose: 5 mg Pantoprazole Sodium (Protonix Ec Tab) 40 mg PO BID [facility] Last Admin: 07/22/18 17:37 Dose: 40 mg Propranolol HCl (Inderal) 10 mg PO TID [facility] Last Admin: 07/22/18 17:37 Dose: 10 mg Rosuvastatin Calcium (Crestor) 10 mg PO HS [facility] Last Admin: 07/22/18 21:53 Dose: 10 mg Senna/Docusate Sodium (Senokot S 50 Mg-8.6 Mg) 1 tab PO BID [facility] Last Admin: 07/22/18 17:37 Dose: 1 tab Thiamine HCl (Vitamin B1 Tab) 100 mg PO DAILY [facility] Last Admin: 07/22/18 09:35 Dose: 100 mg - Labs Labs: 07/18/18 06:35 07/18/18 06:35 PT 11.7 SECONDS (9.7-12.2) 07/15/18 11:19 INR 1.1 07/15/18 11:19 APTT 33.0 SECONDS (21-34) 07/15/18 11:19 - Constitutional Appears: Non-toxic, Well - Head Exam Head Exam: ATRAUMATIC, NORMOCEPHALIC - Eye Exam Eye Exam: EOMI, Normal appearance - ENT Exam ENT Exam: Mucous Membranes Moist - Cardiovascular Exam Cardiovascular Exam: REGULAR RHYTHM, +S1, +S2 - GI/Abdominal Exam GI & Abdominal Exam: Soft, Normal Bowel Sounds. absent: Tenderness Additional comments: Large vertical surgical incision - Extremities Exam Extremities Exam: absent: Pedal Edema, Tenderness - Neurological Exam Neurological Exam: Alert, Awake, Oriented x3 - Skin Exam Skin Exam: Warm, Intact, Dry Assessment and Plan - Assessment and Plan (Free Text) Assessment: 57 year old male presenting initially with constipation and vomiting, treated for SBO, now pending outpatient group home care placement. Plan: SBO Resolved -S/p colonoscopic fecal impaction with GI -Senna, Lactulose, Dulcolax -Moving bowels, tolerating regular diet -Monitor BMs COPD -Continue current meds - Atrovent Schizophrenia -Psych consulted, Dr. Rosas -Patient calm, awake, and alert -Monitor signs of psychosis PPX DVT: Not indicated as pt with no IV meds, not bed-bound Dispo: Pending terminal [facility] care placement, f/u case management Soraya Michael PGY-1
[2018-07-23] MEDS: Ipratropium 0.02% Inhal Soln (0.5 mg/2.5 ml) UD IH SCH ×5 (09:32→19:59)
[2018-07-23] MEDS: Multiple Vitamins Tab PO SCH (10:04)
[2018-07-23] MEDS: Pantoprazole 40 mg EC Tab PO SCH ×2 (10:04→17:56)
[2018-07-23] MEDS: Docusate-Senna 50 mg-8.6 mg Tab PO SCH ×2 (10:05→17:56)
--- NOTE | 2018-07-23 14:40 | PN ---
DATE: 07/23/2018 LOCATION: 671, bed A. SUBJECTIVE: This is a 57-year-old male seen and examined in rounds without reported significant clinical changes as per the nursing staff. No active bleeding, nausea or vomiting, but less bowel movement frequency. No reported chest pain or palpitation. Today's lab results still pending. PHYSICAL EXAMINATION: GENERAL: A 57-year-old male. VITAL SIGNS: Afebrile with pulse of 70, respiratory rate 20-22, blood pressure of 130/72. HEENT: Showed pale, dry oral mucous membrane. Nonicteric sclerae. LUNGS: Few scattered crepitation. Decreased air entry at bases. HEART: Positive S1 and S2. ABDOMEN: Soft. Bowel sounds are present with slight distention. No mass or organomegaly. No rebound tenderness or guarding. EXTREMITIES: Without significant clubbing, cyanosis or edema. No reported new neurological deficits, sensory or motor. IMPRESSION: 1. Fecal impaction with intermittent period of partial bowel obstruction, improving gradually, the patient reported to have two bowel movements yesterday. 2. Anemia most likely secondary to chronic disease. 3. Status post colonoscopy with fecal disimpaction. 4. Re-exacerbation of chronic obstructive pulmonary disease. 5. Known history of psychiatric disorder. 6. Viral hepatitis infection, by history. SUGGESTIONS: 1. Continue current management. 2. Colace one tablet three times a day. 3. No need for further aggressive GI workup in the meantime. Further recommendation to follow. June Nguyen MD
--- NOTE | 2018-07-24 00:29 | CP.PCM.PN ---
<GauravAbdirizak - Last Filed: 07/24/18 00:27> Subjective - Date & Time of Evaluation Date of Evaluation: 07/24/18 Time of Evaluation: 00:28 - Subjective Subjective: HOSPITALIST SERVICE Pt s/e at bedside, denies any acute complaints overnight, awaiting placement, understands current status and agrees with plan Objective - Vital Signs/Intake and Output Vital Signs (last 24 hours): Temp Pulse Resp BP Pulse Ox 97.6 F 70 20 128/79 97 07/23/18 16:06 07/23/18 16:06 07/23/18 16:06 07/23/18 17:58 07/23/18 16:06 - Medications Medications: Current Medications Aspirin (Aspirin) 325 mg PO DAILY [facility] Last Admin: 07/23/18 10:05 Dose: 325 mg Bisacodyl (Dulcolax) 5 mg PO BID PRN Last Admin: 07/20/18 09:44 Dose: 5 mg Clozapine (Clozaril) 100 mg PO BID [facility] Last Admin: 07/23/18 17:56 Dose: 100 mg Famotidine (Pepcid) 20 mg PO BID [facility] Last Admin: 07/23/18 17:56 Dose: 20 mg Folic Acid (Folic Acid) 1 mg PO DAILY [facility] Last Admin: 07/23/18 10:04 Dose: 1 mg Ipratropium [place] (Atrovent) 0.5 mg IH RQID [facility] Last Admin: 07/23/18 19:59 Dose: 0.5 mg Lactulose (Enulose) 10 gm PO HS PRN PRN Reason: IMPACTION Last Admin: 07/22/18 21:54 Dose: 10 gm Multivitamins (Hexavitamin) 1 tab PO DAILY [facility] Last Admin: 07/23/18 10:04 Dose: 1 tab Olanzapine (Zyprexa) 5 mg PO BID [facility] Last Admin: 07/23/18 17:56 Dose: 5 mg Pantoprazole Sodium (Protonix Ec Tab) 40 mg PO BID [facility] Last Admin: 07/23/18 17:56 Dose: 40 mg Propranolol HCl (Inderal) 10 mg PO TID [facility] Last Admin: 07/23/18 17:58 Dose: 10 mg Rosuvastatin Calcium (Crestor) 10 mg PO HS [facility] Last Admin: 07/23/18 22:19 Dose: 10 mg Senna/Docusate Sodium (Senokot S 50 Mg-8.6 Mg) 1 tab PO BID [facility] Last Admin: 07/23/18 17:56 Dose: 1 tab Thiamine HCl (Vitamin B1 Tab) 100 mg PO DAILY [facility] Last Admin: 07/23/18 10:04 Dose: 100 mg - Labs Labs: 07/18/18 06:35 07/18/18 06:35 PT 11.7 SECONDS (9.7-12.2) 07/15/18 11: INR 1.1 07/15/18 11:19 APTT 33.0 SECONDS (21-34) 07/15/18 11:19 - Additional Findings Additional findings: Head Exam Head Exam: ATRAUMATIC, NORMOCEPHALIC - Eye Exam Eye Exam: EOMI, Normal appearance - ENT Exam ENT Exam: Mucous Membranes Moist - Cardiovascular Exam Cardiovascular Exam: REGULAR RHYTHM, +S1, +S2 - GI/Abdominal Exam GI & Abdominal Exam: Soft, Normal Bowel Sounds. absent: Tenderness Additional comments: Large vertical surgical incision - Extremities Exam Extremities Exam: absent: Pedal Edema, Tenderness - Neurological Exam Neurological Exam: Alert, Awake, Oriented x3 - Skin Exam Skin Exam: Warm, Intact, Dry Assessment and Plan - Assessment and Plan (Free Text) Assessment: 57 year old male presenting initially with constipation and vomiting, treated for SBO, now pending outpatient group home care placement. Plan: SBO Resolved -S/p colonoscopic fecal impaction with GI -Senna, Lactulose, Dulcolax -Moving bowels, tolerating regular diet -Monitor BMs COPD -Continue current meds - Atrovent Schizophrenia -Psych consulted, Dr. Rosas -Patient calm, awake, and alert -Monitor signs of psychosis PPX DVT: Not indicated as pt with no IV meds, not bed-bound Dispo: Pending long term acute care registered nurse care placement, f/u case management <Abe Holley - Last Filed: 07/26/18 19:25> Objective - Vital Signs/Intake and Output Vital Signs (last 24 hours): Temp Pulse Resp BP Pulse Ox 98.3 F 85 20 115/76 98 07/26/18 16:00 07/26/18 16:00 07/26/18 16:00 07/26/18 16:00 07/26/18 16:00 Intake and Output: 07/26/18 07/27/18 18:59 06:59 Intake Total 900 Balance 900 - Medications Medications: Current Medications Aspirin (Aspirin) 325 mg PO DAILY [facility] Last Admin: 07/26/18 09:25 Dose: 325 mg Bisacodyl (Dulcolax) 5 mg PO BID PRN Last Admin: 07/20/18 09:44 Dose: 5 mg Clozapine (Clozaril) 100 mg PO BID [facility] Last Admin: 07/26/18 18:40 Dose: 100 mg Famotidine (Pepcid) 20 mg PO BID [facility] Last Admin: 07/26/18 18:40 Dose: 20 mg Folic Acid (Folic Acid) 1 mg PO DAILY [facility] Last Admin: 07/26/18 09:25 Dose: 1 mg Ipratropium [place] (Atrovent) 0.5 mg IH RQID [facility] Last Admin: 07/26/18 13:05 Dose: 0.5 mg Lactulose (Enulose) 10 gm PO HS PRN PRN Reason: IMPACTION Last Admin: 07/22/18 21:54 Dose: 10 gm Multivitamins (Hexavitamin) 1 tab PO DAILY [facility] Last Admin: 07/26/18 09:25 Dose: 1 tab Olanzapine (Zyprexa) 5 mg PO BID [facility] Last Admin: 07/26/18 18:41 Dose: 5 mg Propranolol HCl (Inderal) 10 mg PO TID [facility] Last Admin: 07/26/18 18:40 Dose: 10 mg Rosuvastatin Calcium (Crestor) 10 mg PO HS [facility] Last Admin: 07/25/18 21:27 Dose: 10 mg Senna/Docusate Sodium (Senokot S 50 Mg-8.6 Mg) 1 tab PO BID [facility] Last Admin: 07/26/18 18:40 Dose: 1 tab Thiamine HCl (Vitamin B1 Tab) 100 mg PO DAILY [facility] Last Admin: 07/26/18 09:25 Dose: 100 mg - Labs Labs: 07/26/18 07:17 07/26/18 07:17 PT 12.0 SECONDS (9.7-12.2) 07/24/18 08:07 INR 1.1 07/24/18 08:07 APTT 30.1 SECONDS (21-34) 07/24/18 08:07 Attending/Attestation - Attestation I have personally seen and examined this patient.: Yes I have fully participated in the care of the patient.: Yes I have reviewed all pertinent clinical information, including history, physical exam and plan: Yes Notes (Text): 07/26/18 19:24 This is a late entry. Care of this patient was gone over in detail with resident Dr. Nolasco. Abe Holley D.O.
[2018-07-24] MEDS: Ipratropium 0.02% Inhal Soln (0.5 mg/2.5 ml) UD IH SCH ×4 (08:00→20:01)
[2018-07-24 08:25] LABS: BASO # 0.1 K/uL (0.0-0.2); BASO % 1.2 % (0.0-2.0); EOS # 0.2 K/uL (0.0-0.7); EOS % 3.4 % (0.0-4.0); HEMOGLOBIN 11.5 g/dL (12.0-18.0); LYMPH # 1.4 K/uL (1.0-4.3); LYMPH % 25.2 % (20.0-40.0); MEAN CORPUSCULAR HEMOGLOBIN 30.8 pg (27.0-31.0); MEAN CORPUSCULAR HGB CONC 34.2 g/dL (33.0-37.0); MEAN PLATELET VOLUME 10.1 fL (7.2-11.7); MONO # 0.7 K/uL (0.0-0.8); MONO % 12.7 % (0.0-10.0); NEUT # 3.2 K/uL (1.8-7.0); NEUT % 57.5 % (50.0-75.0); NRBC % 0.1 % (0.0-2.0); RBC 3.74 Mil/uL (4.40-5.90); RED CELL DISTRIBUTION WIDTH 16.5 % (11.5-14.5); WHITE BLOOD COUNT 5.6 K/uL (4.8-10.8)
[2018-07-24 08:27] LABS: INR 1.1; PARTIAL THROMBOPLASTIN TIME 30.1 SECONDS (21-34)
--- NOTE | 2018-07-24 08:35 | PN ---
DATE: 07/24/2018 LOCATION: 671, bed A. SUBJECTIVE: This is a 57-year-old male seen and examined in rounds without significant clinical changes or reported active bleeding, reported to have bowel movement. No nausea or vomiting. The entire chart is reviewed including the most recent lab and radiology study results and today's lab results still pending but the patient reported to have low hemoglobin and hematocrit with mild increase of blood glucose level but low calcium, low total protein and low albumin. PHYSICAL EXAMINATION: GENERAL: A 57-year-old male. VITAL SIGNS: Afebrile with pulse of 74, respiratory rate 20 to 22, blood pressure 110/66. HEENT: Showed pale, dry oral mucous membrane. Nonicteric sclerae. LUNGS: Few scattered crepitation. Decreased air entry at bases. HEART: Positive S1 and S2. ABDOMEN: Soft with mild generalized tenderness. No mass or organomegaly. No rebound tenderness or guarding. EXTREMITIES: Without significant clubbing, cyanosis or edema. NEUROLOGIC: No reported new neurological deficits, sensory or motor. No reported new focal deficits. IMPRESSION: 1. Recurrent fecal impaction inducing partial intermittent bowel obstruction, treated by colonoscopy with fecal disimpaction. 2. Known history of psychiatric disorder including schizophrenia. 3. Re-exacerbation of chronic obstructive pulmonary disease. 4. Anemia secondary to above with malnutrition, hypoalbuminemia and hypoproteinemia. 5. Reported history of viral hepatitis infection before. SUGGESTIONS: 1. Continue current management. 2. Antireflux measures. 3. No need for further aggressive GI workup in the meantime. We will follow up closely with you. June Nguyen MD
[2018-07-24 08:56] LABS: ALB/GLOB RATIO 1.5 (1.0-2.1); ALBUMIN 3.6 g/dL (3.5-5.0); ALT/SGPT 114 U/L (21-72); AST/SGOT 106 U/L (17-59); BLOOD UREA NITROGEN 25 mg/dL (9-20); CALCIUM 8.3 mg/dl (8.6-10.4); GFR NON-AFRICAN AMERICAN > 60
[2018-07-24] MEDS: Docusate-Senna 50 mg-8.6 mg Tab PO SCH ×2 (09:19→17:23)
[2018-07-24] MEDS: Multiple Vitamins Tab PO SCH (09:19)
[2018-07-24] MEDS: Pantoprazole 40 mg EC Tab PO SCH ×2 (09:19→17:23)
[2018-07-25] MEDS: Ipratropium 0.02% Inhal Soln (0.5 mg/2.5 ml) UD IH SCH ×4 (08:09→19:45)
--- NOTE | 2018-07-25 08:17 | CP.PCM.PN ---
<Serafin Alvraado - Last Filed: 07/25/18 10:12> Subjective - Date & Time of Evaluation Date of Evaluation: 07/25/18 Time of Evaluation: 09:57 - Subjective Subjective: PGY-[address] Johnna Holley Patient seen and examined at bedside. No acute events overnight. Patient awake, alert. Denies No hallucinations or delusions. Patient denies nausea, vomiting, headache, diarrhea, dizziness, numbness, focal weakness, chest pain, SOB. Objective - Vital Signs/Intake and Output Vital Signs (last 24 hours): Temp Pulse Resp BP Pulse Ox 97.6 F 68 20 112/71 100 07/24/18 23:40 07/24/18 23:40 07/24/18 23:40 07/24/18 23:40 07/24/18 23:40 - Medications Medications: Current Medications Aspirin (Aspirin) 325 mg PO DAILY [facility] Last Admin: 07/24/18 09:19 Dose: 325 mg Bisacodyl (Dulcolax) 5 mg PO BID PRN Last Admin: 07/20/18 09:44 Dose: 5 mg Clozapine (Clozaril) 100 mg PO BID [facility] Last Admin: 07/24/18 17:22 Dose: 100 mg Famotidine (Pepcid) 20 mg PO BID [facility] Last Admin: 07/24/18 17:23 Dose: 20 mg Folic Acid (Folic Acid) 1 mg PO DAILY [facility] Last Admin: 07/24/18 09:19 Dose: 1 mg Ipratropium [place] (Atrovent) 0.5 mg IH RQID [facility] Last Admin: 07/25/18 08:09 Dose: 0.5 mg Lactulose (Enulose) 10 gm PO HS PRN PRN Reason: IMPACTION Last Admin: 07/22/18 21:54 Dose: 10 gm Multivitamins (Hexavitamin) 1 tab PO DAILY [facility] Last Admin: 07/24/18 09:19 Dose: 1 tab Olanzapine (Zyprexa) 5 mg PO BID [facility] Last Admin: 07/24/18 17:24 Dose: 5 mg Pantoprazole Sodium (Protonix Ec Tab) 40 mg PO BID [facility] Last Admin: 07/24/18 17:23 Dose: 40 mg Propranolol HCl (Inderal) 10 mg PO TID [facility] Last Admin: 07/24/18 17:23 Dose: 10 mg Rosuvastatin Calcium (Crestor) 10 mg PO HS [facility] Last Admin: 07/24/18 21:06 Dose: 10 mg Senna/Docusate Sodium (Senokot S 50 Mg-8.6 Mg) 1 tab PO BID [facility] Last Admin: 07/24/18 17:23 Dose: 1 tab Thiamine HCl (Vitamin B1 Tab) 100 mg PO DAILY [facility] Last Admin: 07/24/18 09:19 Dose: 100 mg - Labs Labs: 07/24/18 08:07 07/24/18 08:07 PT 12.0 SECONDS (9.7-12.2) 07/24/18 08:07 INR 1.1 07/24/18 08:07 APTT 30.1 SECONDS (21-34) 07/24/18 08:07 - Constitutional Appears: Non-toxic, No Acute Distress - Head Exam Head Exam: ATRAUMATIC, NORMOCEPHALIC - Eye Exam Eye Exam: EOMI - ENT Exam ENT Exam: Mucous Membranes Moist - Respiratory Exam Respiratory Exam: Clear to Ausculation Bilateral, NORMAL BREATHING PATTERN. absent: Rhonchi, Wheezes - Cardiovascular Exam Cardiovascular Exam: REGULAR RHYTHM, +S1, +S2 - GI/Abdominal Exam GI & Abdominal Exam: Soft, Normal Bowel Sounds. absent: Tenderness Additional comments: Large vertical surgical incision. - Extremities Exam Extremities Exam: Normal Inspection. absent: Pedal Edema, Tenderness - Neurological Exam Neurological Exam: Alert, Awake, Oriented x3 - Psychiatric Exam Psychiatric exam: Normal Affect, Normal Mood - Skin Skin Exam: Dry, Intact Assessment and Plan - Assessment and Plan (Free Text) Assessment: 57 year old male presenting initially with constipation and vomiting, treated for SBO, now pending outpatient [employer] superintendent care placement. Plan: SBO Resolved -S/p colonoscopic fecal impaction with GI -Senna, Lactulose, Dulcolax -Moving bowels, tolerating regular diet -Monitor BMs COPD -Continue current meds - Atrovent Schizophrenia -Psych consulted, Dr. Rosas -Patient calm, awake, and alert -Monitor signs of psychosis -Continue current meds PPX DVT: Not indicated as pt with no IV meds, not bed-bound Dispo: Pending [employer] terminal superintendent care placement, f/u case management Serafin Alvarado, PGY-1 <Abe Holley - Last Filed: 07/26/18 19:24> Objective - Vital Signs/Intake and Output Vital Signs (last 24 hours): Temp Pulse Resp BP Pulse Ox 98.3 F 85 20 115/76 98 07/26/18 16:00 07/26/18 16:00 07/26/18 16:00 07/26/18 16:00 07/26/18 16:00 Intake and Output: 07/26/18 07/27/18 18:59 06:59 Intake Total 900 Balance 900 - Medications Medications: Current Medications Aspirin (Aspirin) 325 mg PO DAILY [facility] Last Admin: 07/26/18 09:25 Dose: 325 mg Bisacodyl (Dulcolax) 5 mg PO BID PRN Last Admin: 07/20/18 09:44 Dose: 5 mg Clozapine (Clozaril) 100 mg PO BID [facility] Last Admin: 07/26/18 18:40 Dose: 100 mg Famotidine (Pepcid) 20 mg PO BID [facility] Last Admin: 07/26/18 18:40 Dose: 20 mg Folic Acid (Folic Acid) 1 mg PO DAILY [facility] Last Admin: 07/26/18 09:25 Dose: 1 mg Ipratropium [place] (Atrovent) 0.5 mg IH RQID [facility] Last Admin: 07/26/18 13:05 Dose: 0.5 mg Lactulose (Enulose) 10 gm PO HS PRN PRN Reason: IMPACTION Last Admin: 07/22/18 21:54 Dose: 10 gm Multivitamins (Hexavitamin) 1 tab PO DAILY [facility] Last Admin: 07/26/18 09:25 Dose: 1 tab Olanzapine (Zyprexa) 5 mg PO BID [facility] Last Admin: 07/26/18 18:41 Dose: 5 mg Propranolol HCl (Inderal) 10 mg PO TID [facility] Last Admin: 07/26/18 18:40 Dose: 10 mg Rosuvastatin [place] (Crestor) 10 mg PO HS [facility] Last Admin: 07/25/18 21:27 Dose: 10 mg Senna/Docusate Sodium (Senokot S 50 Mg-8.6 Mg) 1 tab PO BID [facility] Last Admin: 07/26/18 18:40 Dose: 1 tab Thiamine HCl (Vitamin B1 Tab) 100 mg PO DAILY [facility] Last Admin: 07/26/18 09:25 Dose: 100 mg - Labs Labs: 07/26/18 07:17 07/26/18 07:17 PT 12.0 SECONDS (9.7-12.2) 07/24/18 08:07 INR 1.1 07/24/18 08:07 APTT 30.1 SECONDS (21-34) 07/24/18 08:07 Attending/Attestation - Attestation I have personally seen and examined this patient.: Yes I have fully participated in the care of the patient.: Yes I have reviewed all pertinent clinical information, including history, physical exam and plan: Yes Notes (Text): 07/26/18 19:24 This is a late entry. Care of this patient was gone over in detail with resident Dr. Alvarado. Abe Holley D.O.
[2018-07-25] MEDS: Multiple Vitamins Tab PO SCH (10:28)
[2018-07-25] MEDS: Docusate-Senna 50 mg-8.6 mg Tab PO SCH ×2 (10:29→17:48)
[2018-07-25] MEDS: Pantoprazole 40 mg EC Tab PO SCH ×2 (10:29→17:47)
--- NOTE | 2018-07-25 11:46 | PN ---
DATE: 07/25/2018 LOCATION: 651, bed A. SUBJECTIVE: This is a 57-year-old male seen and examined in rounds without significant clinical changes or reported active bleeding. No reported chest pain, palpitation, or significant shortness of breath. Reported bowel movement and passing gas. Tolerating oral intake. Today's lab results still pending; however, the patient still has low hemoglobin and hematocrit with mildly elevated BUN but normal creatinine with low calcium and low total protein, but increased AST and ALT of unclear etiology. PHYSICAL EXAMINATION: GENERAL: A 57-year-old male. VITAL SIGNS: Afebrile with pulse of 62, respiratory rate 20 to 22, blood pressure 124/76. HEENT: Pale, dry oral mucous membrane. Nonicteric sclerae. LUNGS: Few scattered crepitations. Decreased air entry at bases. HEART: Positive S1 and S2. ABDOMEN: Soft with mild generalized tenderness. No mass or organomegaly. No rebound tenderness or guarding, but with mild distention. EXTREMITIES: Evidence of muscle wasting. NEUROLOGIC: No reported new neurological deficits, sensory or motor. No reported new focal deficits. IMPRESSION: 1. Recurrent fecal impaction with constipation inducing partial intermittent bowel obstruction. 2. Status post fecal disimpaction by colonoscopy. 3. Peptic ulcer disease. 4. Psychiatric disorder, includes schizophrenia. 5. Anemia, secondary to above. 6. Reported history of viral hepatitis infection. 7. Abnormal liver function test that could be drug induced, of sudden onset. SUGGESTIONS: 1. Repeat hepatitis profile. 2. Adjust oral intake. 3. Antireflux measure. 4. High fiber diet. 5. Further recommendations to follow. June Nguyen MD
[2018-07-26 07:24] LABS: HEMOGLOBIN 11.7 g/dL (12.0-18.0); MEAN CORPUSCULAR HEMOGLOBIN 30.5 pg (27.0-31.0); MEAN CORPUSCULAR HGB CONC 33.9 g/dL (33.0-37.0); MEAN PLATELET VOLUME 9.9 fL (7.2-11.7); RBC 3.83 Mil/uL (4.40-5.90); RED CELL DISTRIBUTION WIDTH 16.7 % (11.5-14.5); WHITE BLOOD COUNT 5.1 K/uL (4.8-10.8)
[2018-07-26 07:47] LABS: ALB/GLOB RATIO 1.3 (1.0-2.1); ALBUMIN 3.4 g/dL (3.5-5.0); ALT/SGPT 116 U/L (21-72); AST/SGOT 69 U/L (17-59); BLOOD UREA NITROGEN 23 mg/dL (9-20); CALCIUM 8.5 mg/dl (8.6-10.4); GFR NON-AFRICAN AMERICAN > 60
[2018-07-26] MEDS: Ipratropium 0.02% Inhal Soln (0.5 mg/2.5 ml) UD IH SCH ×2 (07:58→13:05)
[2018-07-26] MEDS: Multiple Vitamins Tab PO SCH (09:25)
[2018-07-26] MEDS: Docusate-Senna 50 mg-8.6 mg Tab PO SCH ×2 (09:25→18:40)
[2018-07-26] MEDS: Pantoprazole 40 mg EC Tab PO SCH (09:26)
--- NOTE | 2018-07-26 13:26 | PN ---
DATE: 07/26/2018 LOCATION 671, bed A. SUBJECTIVE: This 57-year-old male seen and examined in rounds early today with the staff in the floor without any significant reported clinical changes, tolerating oral intake well with positive bowel sounds as well as positive bowel movement, passing gas. The patient denied any chest pain, palpitation or significant increase of shortness of breath. The entire chart is reviewed including today's lab results which showed hemoglobin 11.7, hematocrit 34.5 with normal platelet count and normal white blood cells with BUN 23 but normal creatinine, calcium 8.5 with improvement of liver function tests with AST of 69, ALT 116 with low albumin. PHYSICAL EXAMINATION: GENERAL: A 57-year-old male. VITAL SIGNS: Afebrile with pulse of 76, respiratory rate 20 to 22, blood pressure 116/64. HEENT: Showed mildly pale, dry oral mucoid membrane. Nonicteric sclerae. LUNGS: Few scattered crepitation. Decreased air entry at bases. HEART: Positive S1 and S2. ABDOMEN: Soft with mild generalized tenderness. No mass or organomegaly but hypoactive bowel sounds. EXTREMITIES: Without significant clubbing, cyanosis or edema. NEUROLOGIC: No reported new neurological deficits, sensory or motor. IMPRESSION: 1. Recurrent fecal disimpaction with disimpaction by colonoscopy. 2. Intermittent partial bowel obstruction secondary to above. 3. Anemia, most likely due to gastrointestinal blood loss versus chronic disease. 4. Psychiatric disorder. 5. Reported history of viral hepatitis. 6. Abnormal liver function tests secondary to above. SUGGESTIONS: 1. Continue current management. 2. Antireflux measures. 3. Repeat hepatitis profile with hepatitis C viral load. 4. Further recommendation to follow. June Nguyen MD
--- NOTE | 2018-07-26 14:17 | CP.PCM.PN ---
Objective - Vital Signs/Intake and Output Vital Signs (last 24 hours): Temp Pulse Resp BP Pulse Ox 97.6 F 79 20 117/76 95 07/26/18 08:16 07/26/18 08:16 07/26/18 08:16 07/26/18 13:10 07/26/18 08:16 - Medications Medications: Current Medications Aspirin (Aspirin) 325 mg PO DAILY [facility] Last Admin: 07/26/18 09:25 Dose: 325 mg Bisacodyl (Dulcolax) 5 mg PO BID PRN Last Admin: 07/20/18 09:44 Dose: 5 mg Clozapine (Clozaril) 100 mg PO BID [facility] Last Admin: 07/26/18 09:26 Dose: 100 mg Famotidine (Pepcid) 20 mg PO BID [facility] Last Admin: 07/26/18 09:26 Dose: 20 mg Folic Acid (Folic Acid) 1 mg PO DAILY [facility] Last Admin: 07/26/18 09:25 Dose: 1 mg Ipratropium [place] (Atrovent) 0.5 mg IH RQID [facility] Last Admin: 07/26/18 13:05 Dose: 0.5 mg Lactulose (Enulose) 10 gm PO HS PRN PRN Reason: IMPACTION Last Admin: 07/22/18 21:54 Dose: 10 gm Multivitamins (Hexavitamin) 1 tab PO DAILY [facility] Last Admin: 07/26/18 09:25 Dose: 1 tab Olanzapine (Zyprexa) 5 mg PO BID [facility] Last Admin: 07/26/18 09:25 Dose: 5 mg Propranolol HCl (Inderal) 10 mg PO TID [facility] Last Admin: 07/26/18 13:11 Dose: 10 mg Rosuvastatin Calcium (Crestor) 10 mg PO HS [facility] Last Admin: 07/25/18 21:27 Dose: 10 mg Senna/Docusate Sodium (Senokot S 50 Mg-8.6 Mg) 1 tab PO BID [facility] Last Admin: 07/26/18 09:25 Dose: 1 tab Thiamine HCl (Vitamin B1 Tab) 100 mg PO DAILY [facility] Last Admin: 07/26/18 09:25 Dose: 100 mg - Labs Labs: 07/26/18 07:17 07/26/18 07:17 PT 12.0 SECONDS (9.7-12.2) 07/24/18 08:07 INR 1.1 07/24/18 08:07 APTT 30.1 SECONDS (21-34) 07/24/18 08:07 - Constitutional Appears: Non-toxic, No Acute Distress - Head Exam Head Exam: ATRAUMATIC, NORMOCEPHALIC - Eye Exam Eye Exam: EOMI - ENT Exam ENT Exam: Mucous Membranes Moist - Respiratory Exam Respiratory Exam: Clear to Ausculation Bilateral, NORMAL BREATHING PATTERN. absent: Rhonchi, Wheezes - Cardiovascular Exam Cardiovascular Exam: REGULAR RHYTHM, +S1, +S2 - GI/Abdominal Exam GI & Abdominal Exam: Soft, Normal Bowel Sounds. absent: Tenderness Assessment and Plan - Assessment and Plan (Free Text) Assessment: 57 year old male presenting initially with constipation and vomiting, treated for SBO, now pending [place] [facility] care [facility]. Plan: SBO Resolved -S/p colonoscopic fecal impaction with GI -Senna, Lactulose, Dulcolax -Moving bowels, tolerating regular diet -Monitor BMs COPD Chronic -Continue current meds - Atrovent Schizophrenia Chronic -Psych consulted, Dr. Rosas -Patient calm, awake, and alert -Monitor signs of psychosis -Continue current meds PPX DVT: Not indicated as pt with no IV meds, not bed-bound Dispo: Pending [facility] [facility] care placement, f/u case management Assessment and plan d/w Dr. Johnna Alvarado, PGY-1
[2018-07-26 16:22] VITALS: BP 115/76; PULSE 85; TEMP 98.3; O2SAT 98
--- NOTE | 2018-07-26 16:53 | CP.PCM.DIS ---
<Serafin Alvarado - Last Filed: 07/26/18 16:48> Provider - Provider Date of Admission: 07/04/18 20:30 Attending physician: Akil Cunningham MD Consults: 07/05/18 05:06 Case Management Referral Routine Comment: Physician Instructions: Reason For Exam: From care home Reason for Referral: Discharge Planning 07/05/18 05:56 Gastroenterology Consult Routine Comment: Consulting Provider: June Maravilla Consulting Physician: June Maravilla Reason for Consult: Small bowel obstruction 07/06/18 12:19 General Surgery Consult Routine Comment: Consulting Provider: Terrell Joseph Jr. Consulting Physician: Terrell Joseph Jr. Reason for Consult: partial SBO 07/11/18 12:00 Psychiatry Consult Routine Comment: Consulting Provider: Katiana Rosas Consulting Physician: Katiana Rosas Reason for Consult: PASRR LEVEL 2 PSYCHIATRIC EVALUATION Time Spent in preparation of Discharge (in minutes): 45 Diagnosis - Discharge Diagnosis (1) Small bowel obstruction Status: Acute Hospital Course - Lab Results Lab Results: Micro Results 07/04/18 19:12 Urine,Martino Urine Culture - Final Gram Positive Cocci Most Recent Lab Values WBC 5.1 K/uL (4.8-10.8) 07/26/18 07:17 RBC 3.83 Mil/uL (4.40-5.90) L 07/26/18 07:17 Hgb 11.7 g/dL (12.0-18.0) L 07/26/18 07:17 Hct 34.5 % (35.0-51.0) L 07/26/18 07:17 MCV 90.0 fL (80.0-94.0) 07/26/18 07:17 MCH 30.5 pg (27.0-31.0) 07/26/18 07:17 MCHC 33.9 g/dL (33.0-37.0) 07/26/18 07:17 RDW 16.7 % (11.5-14.5) H 07/26/18 07:17 Plt Count 156 K/uL (130-400) 07/26/18 07:17 MPV 9.9 fL (7.2-11.7) 07/26/18 07:17 Neut % (Auto) 57.5 % (50.0-75.0) 07/24/18 08:07 Lymph % (Auto) 25.2 % (20.0-40.0) 07/24/18 08:07 Peach % (Auto) 12.7 % (0.0-10.0) H 07/24/18 08:07 Eos % (Auto) 3.4 % (0.0-4.0) 07/24/18 08:07 Baso % (Auto) 1.2 % (0.0-2.0) 07/24/18 08:07 Neut # (Auto) 3.2 K/uL (1.8-7.0) 07/24/18 08:07 Lymph # (Auto) 1.4 K/uL (1.0-4.3) 07/24/18 08:07 Peach # (Auto) 0.7 K/uL (0.0-0.8) 07/24/18 08:07 Eos # (Auto) 0.2 K/uL (0.0-0.7) 07/24/18 08:07 Baso # (Auto) 0.1 K/uL (0.0-0.2) 07/24/18 08:07 PT 12.0 SECONDS (9.7-12.2) 07/24/18 08:07 INR 1.1 07/24/18 08:07 APTT 30.1 SECONDS (21-34) 07/24/18 08:07 pO2 28 mm/Hg (30-55) L 07/04/18 19:14 VBG pH 7.32 (7.32-7.43) 07/04/18 19:14 VBG pCO2 35 mmHg (40-60) L 07/04/18 19:14 VBG HCO3 17.8 mmol/L 07/04/18 19:14 VBG Total CO2 19.1 mmol/L (22-28) L 07/04/18 19:14 VBG O2 Sat (Calc) 50.5 % (40-65) 07/04/18 19:14 VBG Base Excess -7.3 mmol/L (0.0-2.0) L 07/04/18 19:14 VBG Potassium 3.6 mmol/L (3.6-5.2) 07/04/18 19:14 Sodium 141.0 mmol/l (132-148) 07/04/18 19:14 Chloride 115.0 mmol/L (98-107) H 07/04/18 19:14 Glucose 64 mg/dl (75-110) L 07/04/18 19:14 Lactate 1.2 mmol/L (0.7-2.1) 07/04/18 19:14 Sodium 135 mmol/L (132-148) 07/26/18 07:17 Potassium 4.7 mmol/L (3.6-5.2) 07/26/18 07:17 Chloride 104 mmol/L (98-107) 07/26/18 07:17 Carbon Dioxide 24 mmol/L (22-30) 07/26/18 07:17 Anion Gap 12 (10-20) 07/26/18 07:17 BUN 23 mg/dL (9-20) H 07/26/18 07:17 Creatinine 1.1 mg/dL (0.8-1.5) 07/26/18 07:17 Est GFR ( Amer) > 60 07/26/18 07:17 Est GFR (Non-Af Amer) > 60 07/26/18 07:17 POC Glucose (mg/dL) 135 mg/dL (65-110) H 07/04/18 13:10 Random Glucose 89 mg/dL (75-110) 07/26/18 07:17 Calcium 8.5 mg/dl (8.6-10.4) L 07/26/18 07:17 Phosphorus 3.6 mg/dL (2.5-4.5) 07/26/18 07:17 Magnesium 1.9 mg/dL (1.6-2.3) 07/26/18 07:17 Total Bilirubin 0.4 mg/dL (0.2-1.3) 07/26/18 07:17 AST 69 U/L (17-59) H D 07/26/18 07:17 ALT 116 U/L (21-72) H 07/26/18 07:17 Alkaline Phosphatase 59 U/L (38-126) 07/26/18 07:17 Total Protein 6.1 g/dL (6.3-8.3) L 07/26/18 07:17 Albumin 3.4 g/dL (3.5-5.0) L 07/26/18 07:17 Globulin 2.6 gm/dL (2.2-3.9) 07/26/18 07:17 Albumin/Globulin Ratio 1.3 (1.0-2.1) 07/26/18 07:17 Lipase 20 U/L (23-300) L 07/04/18 14:45 Alpha Fetoprotein 2.5 ng/mL (0.0-7.5) 07/06/18 16:50 Carcinoembryonic Ag 5.2 ng/mL (0-3.0) H 07/15/18 11:19 CA 19-9 Antigen 40.5 U/mL (0-37) H D 07/06/18 16:50 Free T4 1.15 ng/dL (0.78-2.19) 07/15/18 11:19 TSH 3rd Generation 0.96 mIU/L (0.46-4.68) 07/15/18 11:19 Venous Blood Potassium 3.6 mmol/L (3.6-5.2) 07/04/18 19:14 Urine Color Debbie (YELLOW) 07/04/18 19:12 Urine Clarity Hazy (Clear) 07/04/18 19:12 Urine pH 5.0 (5.0-8.0) 07/04/18 19:12 Ur Specific [place] 1.038 (1.003-1.030) H 07/04/18 19:12 Urine Protein 2+ mg/dL (NEGATIVE) H 07/04/18 19:12 Urine Glucose (UA) Normal mg/dL (Normal) 07/04/18 19:12 Urine Ketones Trace mg/dL (NEGATIVE) 07/04/18 19:12 Urine Blood Negative (NEGATIVE) 07/04/18 19:12 Urine Nitrate Negative (NEGATIVE) 07/04/18 19:12 Urine Bilirubin 1+ (NEGATIVE) H 07/04/18 19:12 Urine Urobilinogen 4.0 mg/dL (0.2-1.0) 07/04/18 19:12 Ur Leukocyte Esterase Neg [place]/uL (Negative) 07/04/18 19:12 Urine WBC (Auto) 8 /hpf (0-5) H 07/04/18 19:12 Ur Squamous Epith Cells 6 /hpf (0-5) H 07/04/18 19:12 Urine Bacteria Occ (<OCC) H 07/04/18 19:12 Blood Type AB NEGATIVE 07/04/18 16:41 Antibody Screen Negative 07/04/18 16:41 - Hospital Course Hospital Course: HPI: 57yo M with PMHx of recurrent mechanical bowel obstructions due constipation, Schizophrenia who returns to [facility] with nausea and vomiting and decreased PO tolerance. Patient is a resident in a skilled nursing. CT A/P obtained in ED on admission 2 days ago is consistent with probable mechanical bowel obstruction, dilated small bowel loops and large fecal load throughout the colon. Surgery consult was obtained today. At this time, patient states that he had a large bowel movement yesterday. (This is unverified by the staff and the patient is not a reliable historian due to history of schizophrenia). Patient denies any other complaints. NGT in place to wall suction. Patient states that he would like to remove the NGT and start a diet. Denies any Fevers or chills. No urinary complaints. Hospital Course: Patient was hospitalized and treated for small bowel obstruciton. Surgery was consulted, Dr. Joseph, as was GI, Dr. Maravilla. Psych was consulted for history of schizophrenia as well. Patient was kept NPO and NGT placed. Patient went for colonoscopy fecal disimpactoin with Dr. Maravilla on 07/10. Patient improved and advanced diet as tolerated until tolerating solid diet. Patient remained hospitalized pending skilled nursing placement, as had lost his spot at [facility]. Patient re-accepted to [facility] and discharged per primary team. Please note this is just a summary of this hospitalization. For details refer to complete hospital records. Discharge Exam - Head Exam Head Exam: ATRAUMATIC, NORMOCEPHALIC - Eye Exam Eye Exam: EOMI, Normal appearance - Respiratory Exam Respiratory Exam: Clear to PA & Lateral. absent: Rales, Rhonchi, Wheezes - Cardiovascular Exam Cardiovascular Exam: REGULAR RHYTHM, +S1, +S2 - GI/Abdominal Exam GI & Abdominal Exam: Normal Bowel Sounds, Soft. absent: Tenderness - Extremities Exam Extremities exam: normal inspection - Neurological Exam Neurological exam: Alert, CN II-XII Intact, Oriented x3 - Psychiatric Exam Psychiatric exam: Normal Affect, Normal Mood - Skin Skin Exam: Dry, Intact Discharge Plan - Follow Up Plan Condition: FAIR Disposition: HOME/ ROUTINE Instructions: Heart Healthy Diet, Low Cholesterol, Saturated Fat, and Trans Fat Diet , Constipation, Adult (DC), Acute Abdomen (Belly Pain), Adult (DC), Fecal Impaction (DC), Normocytic Normochromic Anemia (DC) Additional Instructions: Patient has been cleared for discharge to [facility] per Dr. Abe Holley Please make sure to continue taking your home medications as follows: -Atrovent 0.5 mg INH QID -Clozapine 100 mg one tab by mouth two times per day at 8am and 8pm -Zyprexa 5mg -Aspirin 325 mg one tab by mouth daily at 8am -Inderal one tab by mouth three times per day at 8am, 2pm and 8pm -Crestor 10 mg one tab by mouth at bedtime -Dulcolax 5 mg one tab by mouth two times per day at 8am and 8pm as needed for constipation -Senokot one cap by mouth two times per day at 8am and 8pm -Pepcid 20 mg one tab by mouth two times per day at 8am and 8pm -Lactulose 10 mg by mouth at bedtime as needed for constipation -Folic acid 1 mg one tab by mouth daily at 8am -Multivitamin 1 tab daily -Thiamine 100 mg one tab by mouth daily at 8am Please return to ED if symptoms recur or worsen Referrals: Akil Cunningham MD [Staff Provider] - <Abe Holley - Last Filed: 07/26/18 19:24> Provider - Provider Date of Admission: 07/04/18 20:30 Attending physician: Akil Cunningham MD Consults: 07/05/18 05:06 Case Management Referral Routine Comment: Physician Instructions: Reason For Exam: From care home Reason for Referral: Discharge Planning 07/05/18 05:56 Gastroenterology Consult Routine Comment: Consulting Provider: June Maravilla Consulting Physician: June Maravilla Reason for Consult: Small bowel obstruction 07/06/18 12:19 General Surgery Consult Routine Comment: Consulting Provider: Terrell Joseph Jr. Consulting Physician: Terrell Joseph Jr. Reason for Consult: partial SBO 07/11/18 12:00 Psychiatry Consult Routine Comment: Consulting Provider: Katiana Rosas Consulting Physician: Katiana Rosas Reason for Consult: PASRR LEVEL 2 PSYCHIATRIC EVALUATION Hospital Course - Lab Results Lab Results: Micro Results 07/04/18 19:12 Urine,Martino Urine Culture - Final Gram Positive Cocci Most Recent Lab Values WBC 5.1 K/uL (4.8-10.8) 07/26/18 07:17 RBC 3.83 Mil/uL (4.40-5.90) L 07/26/18 07:17 Hgb 11.7 g/dL (12.0-18.0) L 07/26/18 07:17 Hct 34.5 % (35.0-51.0) L 07/26/18 07:17 MCV 90.0 fL (80.0-94.0) 07/26/18 07:17 MCH 30.5 pg (27.0-31.0) 07/26/18 07:17 MCHC 33.9 g/dL (33.0-37.0) 07/26/18 07:17 RDW 16.7 % (11.5-14.5) H 07/26/18 07:17 Plt Count 156 K/uL (130-400) 07/26/18 07:17 MPV 9.9 fL (7.2-11.7) 07/26/18 07:17 Neut % (Auto) 57.5 % (50.0-75.0) 07/24/18 08:07 Lymph % (Auto) 25.2 % (20.0-40.0) 07/24/18 08:07 Peach % (Auto) 12.7 % (0.0-10.0) H 07/24/18 08:07 Eos % (Auto) 3.4 % (0.0-4.0) 07/24/18 08:07 Baso % (Auto) 1.2 % (0.0-2.0) 07/24/18 08:07 Neut # (Auto) 3.2 K/uL (1.8-7.0) 07/24/18 08:07 Lymph # (Auto) 1.4 K/uL (1.0-4.3) 07/24/18 08:07 Peach # (Auto) 0.7 K/uL (0.0-0.8) 07/24/18 08:07 Eos # (Auto) 0.2 K/uL (0.0-0.7) 07/24/18 08:07 Baso # (Auto) 0.1 K/uL (0.0-0.2) 07/24/18 08:07 PT 12.0 SECONDS (9.7-12.2) 07/24/18 08:07 INR 1.1 07/24/18 08:07 APTT 30.1 SECONDS (21-34) 07/24/18 08:07 pO2 28 mm/Hg (30-55) L 07/04/18 19:14 VBG pH 7.32 (7.32-7.43) 07/04/18 19:14 VBG pCO2 35 mmHg (40-60) L 07/04/18 19:14 VBG HCO3 17.8 mmol/L 07/04/18 19:14 VBG Total CO2 19.1 mmol/L (22-28) L 07/04/18 19:14 VBG O2 Sat (Calc) 50.5 % (40-65) 07/04/18 19:14 VBG Base Excess -7.3 mmol/L (0.0-2.0) L 07/04/18 19:14 VBG Potassium 3.6 mmol/L (3.6-5.2) 07/04/18 19:14 Sodium 141.0 mmol/l (132-148) 07/04/18 19:14 Chloride 115.0 mmol/L (98-107) H 07/04/18 19:14 Glucose 64 mg/dl (75-110) L 07/04/18 19:14 Lactate 1.2 mmol/L (0.7-2.1) 07/04/18 19:14 Sodium 135 mmol/L (132-148) 07/26/18 07:17 Potassium 4.7 mmol/L (3.6-5.2) 07/26/18 07:17 Chloride 104 mmol/L (98-107) 07/26/18 07:17 Carbon Dioxide 24 mmol/L (22-30) 07/26/18 07:17 Anion Gap 12 (10-20) 07/26/18 07:17 BUN 23 mg/dL (9-20) H 07/26/18 07:17 Creatinine 1.1 mg/dL (0.8-1.5) 07/26/18 07:17 Est GFR ( Amer) > 60 07/26/18 07:17 Est GFR (Non-Af Amer) > 60 07/26/18 07:17 POC Glucose (mg/dL) 135 mg/dL (65-110) H 07/04/18 13:10 Random Glucose 89 mg/dL (75-110) 07/26/18 07:17 Calcium 8.5 mg/dl (8.6-10.4) L 07/26/18 07:17 Phosphorus 3.6 mg/dL (2.5-4.5) 07/26/18 07:17 Magnesium 1.9 mg/dL (1.6-2.3) 07/26/18 07:17 Total Bilirubin 0.4 mg/dL (0.2-1.3) 07/26/18 07:17 AST 69 U/L (17-59) H D 07/26/18 07:17 ALT 116 U/L (21-72) H 07/26/18 07:17 Alkaline Phosphatase 59 U/L (38-126) 07/26/18 07:17 Total Protein 6.1 g/dL (6.3-8.3) L 07/26/18 07:17 Albumin 3.4 g/dL (3.5-5.0) L 07/26/18 07:17 Globulin 2.6 gm/dL (2.2-3.9) 07/26/18 07:17 Albumin/Globulin Ratio 1.3 (1.0-2.1) 07/26/18 07:17 Lipase 20 U/L (23-300) L 07/04/18 14:45 Alpha Fetoprotein 2.5 ng/mL (0.0-7.5) 07/06/18 16:50 Carcinoembryonic Ag 5.2 ng/mL (0-3.0) H 07/15/18 11:19 CA 19-9 Antigen 40.5 U/mL (0-37) H D 07/06/18 16:50 Free T4 1.15 ng/dL (0.78-2.19) 07/15/18 11:19 TSH 3rd Generation 0.96 mIU/L (0.46-4.68) 07/15/18 11:19 Venous Blood Potassium 3.6 mmol/L (3.6-5.2) 07/04/18 19:14 Urine Color Debbie (YELLOW) 07/04/18 19:12 Urine Clarity Hazy (Clear) 07/04/18 19:12 Urine pH 5.0 (5.0-8.0) 07/04/18 19:12 Ur Specific [place] 1.038 (1.003-1.030) H 07/04/18 19:12 Urine Protein 2+ mg/dL (NEGATIVE) H 07/04/18 19:12 Urine Glucose (UA) Normal mg/dL (Normal) 07/04/18 19:12 Urine Ketones Trace mg/dL (NEGATIVE) 07/04/18 19:12 Urine Blood Negative (NEGATIVE) 07/04/18 19:12 Urine Nitrate Negative (NEGATIVE) 07/04/18 19:12 Urine Bilirubin 1+ (NEGATIVE) H 07/04/18 19:12 Urine Urobilinogen 4.0 mg/dL (0.2-1.0) 07/04/18 19:12 Ur Leukocyte Esterase Neg [place]/uL (Negative) 07/04/18 19:12 Urine WBC (Auto) 8 /hpf (0-5) H 07/04/18 19:12 Ur Squamous Epith Cells 6 /hpf (0-5) H 07/04/18 19:12 Urine Bacteria Occ (<OCC) H 07/04/18 19:12 Blood Type AB NEGATIVE 07/04/18 16:41 Antibody Screen Negative 07/04/18 16:41 Attending/Attestation - Attestation I have personally seen and examined this patient.: Yes I have fully participated in the care of the patient.: Yes I have reviewed all pertinent clinical information, including history, physical exam and plan: Yes Notes (Text): 07/26/18 19:23 Patient was seen and examined at 10:45 AM Upon FULL ROS there were NO complaints. HEENT, Cardio, Resp, GI, Ext, CN II through XII were unremarkable except where noted: Poor dentition Care of this patient and discharge instructions were gone over in detail with resident. Abe Holley D.O.
== END 2018-07-26 19:28 | DRG 389 ==
LOC: C.ER 12:25 → C.9E 20:30 → C.6T 21:40
PROVIDERS: ADMIT Internal Medicine; ATTEND Internal Medicine
PROC: 0DBM8ZX Excision of Descending Colon, Via Natural or Artificial Opening Endoscopic, Diagnostic (ICD-10-PCS; principal; 2018-07-10 09:59)
DX: K56.600 Partial intestinal obstruction, unspecified as to cause (principal); N39.0 Urinary tract infection, site not specified; E46 Unspecified protein-calorie malnutrition; E87.2 Acidosis; B19.10 Unspecified viral hepatitis B without hepatic coma; F20.0 Paranoid schizophrenia; J44.1 Chronic obstructive pulmonary disease with (acute) exacerbation; K56.41 Fecal impaction; I10 Essential (primary) hypertension; F32.9 Major depressive disorder, single episode, unspecified; F41.9 Anxiety disorder, unspecified; F17.210 Nicotine dependence, cigarettes, uncomplicated; F20.9 Schizophrenia, unspecified; B19.20 Unspecified viral hepatitis C without hepatic coma; D63.8 Anemia in other chronic diseases classified elsewhere; E77.8 Other disorders of glycoprotein metabolism; J44.9 Chronic obstructive pulmonary disease, unspecified; K21.9 Gastro-esophageal reflux disease without esophagitis; K64.8 Other hemorrhoids; K27.9 Peptic ulcer, site unspecified, unspecified as acute or chronic, without hemorrhage or perforation; K52.9 Noninfective gastroenteritis and colitis, unspecified; K74.60 Unspecified cirrhosis of liver; R97.0 Elevated carcinoembryonic antigen [CEA]; B18.2 Chronic viral hepatitis C; K64.4 Residual hemorrhoidal skin tags; R32 Unspecified urinary incontinence; R15.9 Full incontinence of feces; Z86.73 Personal history of transient ischemic attack (TIA), and cerebral infarction without residual deficits; Z87.11 Personal history of peptic ulcer disease